=== PATIENT | male | born 1960 | race Caucasian/White ===

== ENCOUNTER 2018-02-03 18:10 | Inpatient (IN) | payer OTHER ==
[2018-02-03] MEDS ORDERED: ACETAMINOPHEN 325 MG TABLET PO ONE (18:36)
[2018-02-03] MEDS ORDERED: OXYCODONE-ACETAMINOPHEN 5-325 MG TABLET PO ONE (18:57)
--- NOTE | 2018-02-03 19:04 | ER Document Report ---
ED Fall - General Chief Complaint: Fall Injury Stated Complaint: FALL,INJURY Time Seen by Provider: 02/03/18 18:54 Notes: History of complain-57 years old male fell from a 6 foot ladder landed on his right heel and then on right elbow. Did not hit the head. Did not lose consciousness. Since then having pain over the middle of the arm elbow and wrist as well as pain and swelling over the right ankle and heel. Also having slight discomfort over lower lumbar region. Denies any headache denies any loss of consciousness denies any neck pain neck stiffness. Denies any chest pain shortness of breath. Denies any abdominal pain. Denies any pain over the left upper limb or lower limbs. As REVIEW OF SYSTEMS: CONSTITUTIONAL : Denies fever, chills, or sweats. Denies recent illness. EENT: Denies eye, ear, throat, or mouth pain or symptoms. Denies nasal or sinus congestion or discharge. Denies throat, tongue, or mouth swelling or difficulty swallowing. CARDIOVASCULAR: Denies chest pain. Denies palpitations or racing or irregular heart beat. Denies ankle edema. RESPIRATORY: Denies cough, cold, or chest congestion. Denies shortness of breath, difficulty breathing, or wheezing. GASTROINTESTINAL: Denies abdominal pain or distention. Denies nausea, vomiting , or diarrhea. Denies blood in vomitus, stools, or per rectum. Denies black, tarry stools. Denies constipation. GENITOURINARY: Denies difficulty urinating, painful urination, burning, frequency, blood in urine, or discharge. MUSCULOSKELETAL: About SKIN: Denies rash, lesions or sores. HEMATOLOGIC : Denies easy bruising or bleeding. LYMPHATIC: Denies swollen, enlarged glands. NEUROLOGICAL: Denies confusion or altered mental status. Denies passing out or loss of consciousness. Denies dizziness or lightheadedness. Denies headache. Denies weakness or paralysis or loss of use of either side. Denies problems with gait or speech. Denies sensory loss, numbness, or tingling. Denies seizures. PSYCHIATRIC: Denies anxiety or stress. Denies depression, suicidal ideation, or homicidal ideation. ALL OTHER SYSTEMS REVIEWED AND NEGATIVE. Dictation was performed using [employer] voice recognition software PHYSICAL EXAMINATION: GENERAL: Mild to moderate discomfort with pain HEAD: Atraumatic, normocephalic. EYES: Pupils equal round and reactive to light, extraocular movements intact, sclera anicteric, conjunctiva are normal. ENT: Nares patent, oropharynx clear without exudates. Moist mucous membranes. NECK: Normal range of motion, supple without lymphadenopathy LUNGS: Breath sounds clear to auscultation bilaterally and equal. No wheezes rales or rhonchi. HEART: Regular rate and rhythm without murmurs ABDOMEN: Soft, nontender, nondistended abdomen. No guarding, no rebound. No masses appreciated. Musculoskeletal: 1 right mid forearm has deformity swelling and tenderness. Right elbow has swelling could not do any flexion extension due to pain2.4 right wrist has slight swelling and tenderness but able to flex and extend..5. Fingers appears normal hand appears normal. Right ankle shows swelling and discomfort over the ankle-tenderness diffusely. Including calcaneum. Unable to do plantar flexion dorsiflexion inversion inversion due to pain. Examination of the thoracolumbar region-no obvious tenderness noted over the thoracolumbar spine. No paraspinal muscular tenderness noted. Examination of the chest wall-no tenderness was noted throughout the chest wall. - - NEUROLOGICAL: Cranial nerves grossly intact. Normal speech, normal gait. Normal sensory, motor exams PSYCH: Normal mood, normal affect. SKIN: Warm, Dry, normal turgor, no rashes or lesions noted. TRAVEL OUTSIDE OF THE [place] IN LAST 30 DAYS: No - Related data Allergies/Adverse Reactions: No Known Allergies Allergy (Unverified 02/03/18 18:38) Past Medical History - Social History Smoking Status: Former Smoker Chew tobacco use (# tins/day): No Frequency of alcohol use: Occasional Drug Abuse: None Family History: Reviewed & Not Pertinent Patient has suicidal ideation: No Patient has homicidal ideation: No - Past Medical History Cardiac Medical History: Reports: Hx Hypertension Renal/ Medical History: Denies: Hx Peritoneal Dialysis Review of Systems - Review of Systems Notes: As per history of complain Physical Exam - Vital signs Vitals: Temp Pulse Resp BP Pulse Ox 98 F 99 18 185/105 H 96 02/03/18 18:24 02/03/18 18:24 02/03/18 18:24 02/03/18 18:24 02/03/18 18:24 Course - Re-evaluation Re-evalutation: 02/03/18 22:52 Case was discussed with orthopedic surgeon currently being admitted to his service. X-rays and CTs reviewed - Vital Signs Vital signs: Temp Pulse Resp BP Pulse Ox 98 F 99 23 H 185/105 H 96 02/03/18 18:24 02/03/18 18:24 02/03/18 18:29 02/03/18 18:24 02/03/18 18:29 - Laboratory Result Diagrams: 02/03/18 18:22 02/03/18 18:22 Laboratory results interpreted by me: 02/03/18 02/03/18 18:22 18:22 MCH 34.1 H Sodium 145.3 H Chloride 109 H BUN 21 H Glucose 111 H - Diagnostic Test Radiology reviewed: Reports reviewed - X-rays and CTs reported by radiologist as reviewed. Indicated the right humeral fracture displaced, right ankle fracture with calcaneal fracture, L2 vertebral fracture. Critical Care Note - Critical Care Note Total time excluding time spent on procedures (mins): 60 Comments: Management of trauma with multiple injuries. Discussion with orthopedic surgeon Discharge - Discharge Clinical Impression: Right humeral fracture Qualifiers: Encounter type: initial encounter Humerus Location: proximal Fracture type: closed Fracture morphology: other fracture Fracture alignment: displaced Qualified Code(s): S42.291A - Other displaced fracture of upper end of right humerus, initial encounter for closed fracture Wrist fracture, right Qualifiers: Encounter type: initial encounter Fracture type: closed Qualified Code(s): S62.101A - Fracture of unspecified carpal bone, right wrist, initial encounter for closed fracture Ankle fracture, right Qualifiers: Encounter type: initial encounter Fracture type: closed Qualified Code(s): S82.891A - Other fracture of right lower leg, initial encounter for closed fracture Calcaneal fracture Qualifiers: Encounter type: initial encounter Calcaneus location: body Fracture type: closed Fracture alignment: displaced Laterality: right Qualified Code(s): S92.011A - Displaced fracture of body of right calcaneus, initial encounter for closed fracture L2 vertebral fracture Qualifiers: Encounter type: initial encounter Fracture type: closed Fracture morphology: wedge compression Qualified Code(s): S32.020A - Wedge compression fracture of second lumbar vertebra, initial encounter for closed fracture Fall Qualifiers: Encounter type: initial encounter Qualified Code(s): W19.XXXA - Unspecified fall, initial encounter Disposition: ADMITTED INPATIENT Unit Admitted: Surgical Floor
[2018-02-03 19:06] LABS: ABSOLUTE BASOPHILS # (AUTO) 0.1 10^3/uL (0.0-0.2); ABSOLUTE EOSINOPHILS # (AUTO) 0.2 10^3/uL (0.0-0.6); ABSOLUTE LYMPHOCYTES (AUTO) 1.9 10^3/uL (0.5-4.7); ABSOLUTE MONOCYTES (AUTO) 0.7 10^3/uL (0.1-1.4); ABSOLUTE NEUT (AUTO) 3.8 10^3/uL (1.7-8.2); EOSINOPHILS % (AUTO) 2.5 % (0-6); HEMATOCRIT 44.2 % (37.9-51.0); HEMOGLOBIN 15.8 g/dL (13.5-17.0); LYMPHOCYTES % (AUTO) 28.9 % (13-45); MEAN CORPUSCULAR HEMOGLOBIN 34.1 pg (27.0-33.4); MEAN CORPUSCULAR HGB CONC 35.7 g/dL (32.0-36.0); MEAN CORPUSCULAR VOLUME 95 fl (80-97); MONOCYTES % (AUTO) 10.1 % (3-13); PLATELET COUNT 237 10^3/uL (150-450); RED BLOOD COUNT 4.64 10^6/uL (4.35-5.55); RED CELL DISTRIBUTION WIDTH 12.6 % (11.5-14.0); SEGMENTED NEUTROPHILS % (AUTO) 57.5 % (42-78); TOTAL CELLS COUNTED % (AUTO) 100 %; WHITE BLOOD COUNT 6.6 10^3/uL (4.0-10.5)
[2018-02-03 19:10] LABS: ALANINE AMINOTRANSFERASE 55 U/L (21-72); ALBUMIN 4.7 g/dL (3.5-5.0); ALKALINE PHOSPHATASE 80 U/L (38-126); ANION GAP 11 (5-19); ASPARTATE AMINO TRANSFERASE 35 U/L (17-59); BILIRUBIN,DIRECT 0.4 mg/dL (0.0-0.4); BILIRUBIN,TOTAL 0.8 mg/dL (0.2-1.3); BLOOD UREA NITROGEN 21 mg/dL (7-20); CALCIUM 9.7 mg/dL (8.4-10.2); CARBON DIOXIDE 25 mmol/L (22-30); CHLORIDE 109 mmol/L (98-107); GLUCOSE 111 mg/dL (75-110); POTASSIUM 4.5 mmol/L (3.6-5.0); SODIUM 145.3 mmol/L (137-145); TOTAL PROTEIN 7.1 g/dL (6.3-8.2)
--- NOTE | 2018-02-03 20:18 | RADIOLOGY REPORT (SQ) ---
EXAM DESCRIPTION: CT CERVICAL SPINE WITHOUT COMPLETED DATE/TIME: 02/03/2018 8:08 pm REASON FOR STUDY: fall COMPARISON: None. TECHNIQUE: Axial images acquired through the cervical spine without intravenous contrast. Images re viewed with lung, soft tissue and bone windows. Reconstructed coronal and sagittal MPR images review ed. Images stored on PACS. All CT scanners at this facility use dose modulation, iterative reconstruction, and/or weight based d osing when appropriate to reduce radiation dose to as low as reasonably achievable (ALARA). [facility]: Dose Right [facility]: CareDose [facility]: Dose Right [facility]: Teradose 4D [facility]: [employer] RADIATION DOSE: CT Rad equipment meets quality standard of care and radiation dose reduction techniq ues were employed. CTDIvol: 22.1 mGy. DLP: 594 mGy-cm. mGy. LIMITATIONS: None. FINDINGS: ALIGNMENT: Anatomic. MINERALIZATION: Normal. VERTEBRAL BODIES: No fractures or dislocation. DISCS: Mild multilevel degenerative disc disease. FACETS, LATERAL MASSES, POSTERIOR ELEMENTS: No fractures. No dislocation. No acute findings. HARDWARE: None in the spine. VISUALIZED RIBS: No fractures. LUNG APICES AND SOFT TISSUES: Vascular calcifications. No additional significant findings. OTHER: No other significant finding. IMPRESSION: MILD DEGENERATIVE CHANGE OF THE CERVICAL SPINE WITHOUT FRACTURE. VASCULAR CALCIFICATIONS. TECHNICAL DOCUMENTATION: JOB ID: [id number] Quality ID # [id number]: Final reports with documentation of one or more dose reduction techniques (e.g., Au tomated exposure control, adjustment of the mA and/or kV according to patient size, use of iterative reconstruction technique) 2010 [employer]- All Rights Reserved Reading location - IP/workstation name: [email or web address]
--- NOTE | 2018-02-03 21:05 | RADIOLOGY REPORT (SQ) ---
EXAM DESCRIPTION: FOOT RIGHT COMPLETE; OS CALCIS/HEEL RIGHT; ANKLE RIGHT AP/LATERAL COMPLETED DATE/TIME: 02/03/2018 8:56 pm REASON FOR STUDY: fall; Injury ankle COMPARISON: None. NUMBER OF VIEWS: 8 views TECHNIQUE: Two views of the right ankle, three views of the right foot, and three views of the right calcaneus obtained. LIMITATIONS: None. FINDINGS: MINERALIZATION: Normal. BONES: There is a severely comminuted fracture involving the entirety of the calcaneus with extension into the subtalar joint space. No additional acute fracture identified. JOINTS: Tibiotalar joint effusion. SOFT TISSUES: Diffuse soft tissue swelling. OTHER: No other significant finding. IMPRESSION: SEVERELY COMMINUTED FRACTURE INVOLVING THE ENTIRETY OF THE CALCANEUS WITH EXTENSION INTO THE SUBTALAR JOINT SPACE. ORTHOPEDIC CONSULTATION RECOMMENDED. NO ADDITIONAL FRACTURE IDENTIFIED INVOLVING THE RIGHT OR RIGHT FOOT. TECHNICAL DOCUMENTATION: JOB ID: [id number] [employer]- All Rights Reserved Reading location - IP/workstation name: [email or web address]
--- NOTE | 2018-02-03 21:05 | RADIOLOGY REPORT (SQ) ---
EXAM DESCRIPTION: FOOT RIGHT COMPLETE; OS CALCIS/HEEL RIGHT; ANKLE RIGHT AP/LATERAL COMPLETED DATE/TIME: 02/03/2018 8:56 pm REASON FOR STUDY: fall; Injury ankle COMPARISON: None. NUMBER OF VIEWS: 8 views TECHNIQUE: Two views of the right ankle, three views of the right foot, and three views of the right calcaneus obtained. LIMITATIONS: None. FINDINGS: MINERALIZATION: Normal. BONES: There is a severely comminuted fracture involving the entirety of the calcaneus with extension into the subtalar joint space. No additional acute fracture identified. JOINTS: Tibiotalar joint effusion. SOFT TISSUES: Diffuse soft tissue swelling. OTHER: No other significant finding. IMPRESSION: SEVERELY COMMINUTED FRACTURE INVOLVING THE ENTIRETY OF THE CALCANEUS WITH EXTENSION INTO THE SUBTALAR JOINT SPACE. ORTHOPEDIC CONSULTATION RECOMMENDED. NO ADDITIONAL FRACTURE IDENTIFIED INVOLVING THE RIGHT OR RIGHT FOOT. TECHNICAL DOCUMENTATION: JOB ID: [id number] [employer]- All Rights Reserved Reading location - IP/workstation name: [email or web address]
--- NOTE | 2018-02-03 21:05 | RADIOLOGY REPORT (SQ) ---
EXAM DESCRIPTION: FOOT RIGHT COMPLETE; OS CALCIS/HEEL RIGHT; ANKLE RIGHT AP/LATERAL COMPLETED DATE/TIME: 02/03/2018 8:56 pm REASON FOR STUDY: fall; Injury ankle COMPARISON: None. NUMBER OF VIEWS: 8 views TECHNIQUE: Two views of the right ankle, three views of the right foot, and three views of the right calcaneus obtained. LIMITATIONS: None. FINDINGS: MINERALIZATION: Normal. BONES: There is a severely comminuted fracture involving the entirety of the calcaneus with extension into the subtalar joint space. No additional acute fracture identified. JOINTS: Tibiotalar joint effusion. SOFT TISSUES: Diffuse soft tissue swelling. OTHER: No other significant finding. IMPRESSION: SEVERELY COMMINUTED FRACTURE INVOLVING THE ENTIRETY OF THE CALCANEUS WITH EXTENSION INTO THE SUBTALAR JOINT SPACE. ORTHOPEDIC CONSULTATION RECOMMENDED. NO ADDITIONAL FRACTURE IDENTIFIED INVOLVING THE RIGHT OR RIGHT FOOT. TECHNICAL DOCUMENTATION: JOB ID: [id number] [employer]- All Rights Reserved Reading location - IP/workstation name: [email or web address]
--- NOTE | 2018-02-03 21:06 | RADIOLOGY REPORT (SQ) ---
EXAM DESCRIPTION: HUMERUS RIGHT COMPLETED DATE/TIME: 02/03/2018 8:56 pm REASON FOR STUDY: fall COMPARISON: None. NUMBER OF VIEWS: Two views. TECHNIQUE: Two radiographic images were acquired of the right humerus to include elbow and shoulder in at least one projection. LIMITATIONS: None. FINDINGS: MINERALIZATION: Normal. BONES: Moderately displaced and angulated fracture involving the mid to distal humeral diaphysis. SOFT TISSUES: Soft tissue swelling. OTHER: No other significant finding. IMPRESSION: HUMERUS FRACTURE ABOVE. TECHNICAL DOCUMENTATION: JOB ID: [id number] [employer]- All Rights Reserved Reading location - IP/workstation name: [email or web address]
--- NOTE | 2018-02-03 21:09 | RADIOLOGY REPORT (SQ) ---
EXAM DESCRIPTION: L SPINE WHOLE COMPLETED DATE/TIME: 02/03/2018 8:56 pm REASON FOR STUDY: Injury COMPARISON: None. NUMBER OF VIEWS: Five views including obliques. TECHNIQUE: AP, lateral, oblique, and sacral radiographic images acquired of the lumbar spine. LIMITATIONS: None. FINDINGS: MINERALIZATION: Normal. SEGMENTATION: Normal. No transitional anatomy. ALIGNMENT: Normal. VERTEBRAE: There appears to be a minimally displaced fracture through the anterior superior endplate of the L2 vertebral body. No additional vertebral body fracture identified. DISCS: Mild multilevel degenerative disc disease. POSTERIOR ELEMENTS: Pedicles and facets are intact. No pars defect or posterior arch defects. HARDWARE: None in the spine. PARASPINAL SOFT TISSUES: Vascular calcifications. PELVIS: Intact as visualized. No fractures or worrisome bone lesions. SI joints intact. OTHER: No other significant finding. IMPRESSION: MILDLY DISPLACED FRACTURE ANTERIOR SUPERIOR ENDPLATE L2 VERTEBRAL BODY. ADDITIONAL CHRONIC CHANGES ABOVE. TECHNICAL DOCUMENTATION: JOB ID: [id number] [employer]- All Rights Reserved Reading location - IP/workstation name: [email or web address]
--- NOTE | 2018-02-03 21:10 | RADIOLOGY REPORT (SQ) ---
EXAM DESCRIPTION: WRIST RIGHT 3 VIEWS COMPLETED DATE/TIME: 02/03/2018 8:56 pm REASON FOR STUDY: Injury to wrist and elbow COMPARISON: None. NUMBER OF VIEWS: Three views. TECHNIQUE: AP, lateral, and oblique radiographic images acquired of the right wrist. LIMITATIONS: None. FINDINGS: MINERALIZATION: Normal. BONES: Severely comminuted fracture through the distal radial metaphysis with extension to the articu lar surface where there is mild step-off. Bones otherwise appear to be intact. SOFT TISSUES: Soft tissue swelling. OTHER: No other significant finding. IMPRESSION: INTRA-ARTICULAR FRACTURE DISTAL RADIUS ABOVE. TECHNICAL DOCUMENTATION: JOB ID: [id number] [employer]- All Rights Reserved Reading location - IP/workstation name: [email or web address]
[2018-02-03] MEDS ORDERED: FENTANYL CITRATE INJ/PF 100 MCG/2 ML AMPUL IV ONE (22:23)
[2018-02-03] MEDS ORDERED: ONDANSETRON HCL INJ/PF 4 MG/2 ML SDV IV ONE (22:23)
[2018-02-03] MEDS ORDERED: NORMAL SALINE 1000 ML 1,000 ML IV ONE (22:25)
[2018-02-03] MEDS ORDERED: ONDANSETRON HCL INJ/PF 4 MG/2 ML SDV IV PRN (22:26)
[2018-02-03] MEDS ORDERED: CEFAZOLIN 2 GM/D5W RTU 2 GM/50 ML RTUPB IV ONE (22:45)
--- NOTE | 2018-02-03 23:53 | RADIOLOGY REPORT (SQ) ---
EXAM DESCRIPTION: CT LUMBAR SPINE WITHOUT CLINICAL HISTORY: 57 years Male, Lumbar fracture COMPARISON: CR, same day. TECHNIQUE: No contrast. Coronal and sagittal reformat. This exam was performed according to our departmental dose-optimization program, which includes automated exposure control, adjustment of the mA and/or kV according to patient size and/or use of iterative reconstruction technique. FINDINGS: Mild L2 anterior vertebral compression deformity and 4.0 x 1.1 cm corner fracture with less than 2 mm distraction of the anterosuperior L2 vertebral body with no evidence of healing. Mild spondylosis. Normal alignment and moderate straightening of the lumbar spine. Minimal bilateral perinephric fat stranding. Atherosclerosis. Mild retroperitoneal lymphadenopathy includes a left periiliac 1.6 x 1.1 cm lymph node, image 78 of series 4. IMPRESSION: 1. Mild L2 anterior vertebral fracture. 2. Mild retroperitoneal lymphadenopathy.
[2018-02-04] MEDS: FENTANYL CITRATE INJ/PF 100 MCG/2 ML AMPUL IV PRN ×4 (00:12→23:16)
--- NOTE | 2018-02-04 00:12 | RADIOLOGY REPORT (SQ) ---
EXAM DESCRIPTION: CT RT UPPER EXTREMITY WITHOUT CLINICAL HISTORY: 57 years Male, CT of the ankle/calcaneum/wrist COMPARISON: CR, same day, report only. TECHNIQUE: No contrast. Coronal and sagittal reformat. This exam was performed according to our departmental dose-optimization program, which includes automated exposure control, adjustment of the mA and/or kV according to patient size and/or use of iterative reconstruction technique. Limitation: Position, low resolution, motion FINDINGS: Comminuted intra-articular fracture of the distal right radius with mild impaction, 0.4 cm volar distraction, no evidence of healing, and unremarkable associated soft tissues. IMPRESSION: Comminuted intra-articular fracture of the distal right radius. Limitation.
--- NOTE | 2018-02-04 00:16 | RADIOLOGY REPORT (SQ) ---
EXAM DESCRIPTION: CT RT LOWER EXTREMITY WITHOUT CLINICAL HISTORY: 57 years Male, CT of the ankle/calcaneum COMPARISON: CR, same day, report only. TECHNIQUE: No contrast. Coronal and sagittal reformat. This exam was performed according to our departmental dose-optimization program, which includes automated exposure control, adjustment of the mA and/or kV according to patient size and/or use of iterative reconstruction technique. Limitation: Moderate motion artifact. FINDINGS: Extensive comminuted intra-articular shattered fracture appearance of the calcaneus with up to 0.7 cm distraction and no evidence of healing. Subchondral degenerative cyst or chronic erosion of the navicular bone at the dorsal talonavicular joint. Mild edema. Mild osteoarthritis of the midfoot. IMPRESSION: Extensively comminuted right calcaneal fracture.
[2018-02-04] MEDS: OXYCODONE-ACETAMINOPHEN 5-325 MG TABLET PO PRN ×3 (02:29→14:50)
[2018-02-04] MEDS ORDERED: CEFAZOLIN 2 GM/D5W RTU 2 GM/50 ML RTUPB IV ONE (02:30)
[2018-02-04] MEDS: RINGERS SOLUTION,LACTATED 1,000 ML IV PRN (02:38)
--- NOTE | 2018-02-04 02:46 | PDOC H&P ---
History of Present Illness Admission Date/PCP: 02/03/18 22:35 KIMBERLY ESCUDERO MD Patient complains of: Fall History of Present Illness: CORY JOE is a 57 year old male who was on a ladder earlier today when he fell 9 feet onto his right side. Patient was unable to weight-bear or ambulate and had significant pain along with deformity of his right arm. Patient was brought to the emergency room where x-rays demonstrated multiple fractures of his right side and a lumbar fracture. Patient denies any head trauma. Denies headache, dizziness or loss of consciousness. Pain 5/5 which has improved with fentanyl. Does have some tingling in the toes denies numbness of the upper extremity. Pain worse with motion of the arm and leg. Past Medical History Cardiac Medical History: Reports: Hypertension Social History Smoking Status: Former Smoker Last Time Smoked: 11/07/1999 Frequency of Alcohol Use: Social Hx Recreational Drug Use: No Hx Prescription Drug Abuse: No Family History Family History: Reviewed & Not Pertinent Parental Family History Reviewed: No Children Family History Reviewed: No Sibling(s) Family History Reviewed.: No Medication/Allergy Allergies/Adverse Reactions: No Known Allergies Allergy (Unverified 02/03/18 18:38) Review of Systems Constitutional: ABSENT: chills, fever(s), headache(s), weight gain, weight loss Eyes: ABSENT: visual disturbances Ears: ABSENT: hearing changes Cardiovascular: ABSENT: chest pain, dyspnea on exertion, edema, orthropnea, palpitations Respiratory: ABSENT: cough, hemoptysis Gastrointestinal: ABSENT: abdominal pain, constipation, diarrhea, hematemesis, hematochezia, nausea, vomiting Genitourinary: ABSENT: dysuria, hematuria Integumentary: ABSENT: rash, wounds Neurological: ABSENT: abnormal gait, abnormal speech, confusion, dizziness, focal weakness, syncope Psychiatric: ABSENT: anxiety, depression, homidical ideation, suicidal ideation Endocrine: ABSENT: cold intolerance, heat intolerance, menstrual abnormalities, polydipsia, polyuria Hematologic/Lymphatic: ABSENT: easy bleeding, easy bruising, lymphadenopathy Physical Exam Vital Signs: Temp Pulse Resp BP Pulse Ox 98 F 99 15 139/79 H 97 02/03/18 18:24 02/03/18 18:24 02/04/18 00:01 02/04/18 00:01 02/04/18 00:01 General appearance: PRESENT: no acute distress, well-developed, well-nourished Head exam: PRESENT: atraumatic, normocephalic Eye exam: PRESENT: conjunctiva pink, EOMI, PERRLA. ABSENT: scleral icterus Ear exam: PRESENT: normal external ear exam Mouth exam: PRESENT: moist, tongue midline Neck exam: PRESENT: full ROM. ABSENT: carotid bruit, JVD, lymphadenopathy, thyromegaly Cardiovascular exam: PRESENT: RRR. ABSENT: diastolic murmur, rubs, systolic murmur Pulses: PRESENT: normal dorsalis pedis pul, +2 pedal pulses bilateral Vascular exam: PRESENT: normal capillary refill GI/Abdominal exam: PRESENT: normal bowel sounds, soft. ABSENT: distended, guarding, mass, organolmegaly, rebound, tenderness Rectal exam: PRESENT: deferred Musculoskeletal exam: PRESENT: other - Right upper extremity: Splint intact. Cap refill less than 2 seconds. Intact sensation to light touch throughout median and ulnar nerve distribution. Anesthesia is along the superficial radial nerve distribution. EPL/FPL intact. Intact flexion-extension of the IP and MP joints. Compartments soft and compressible no sign of compartment syndrome. No pain with passive stretch. Right lower extremity: Splint intact. Intact flexion/extension of the toes. Cap refill less than 2 seconds. Right lower extremity: Splint intact. Intact flexion/extension of the toes. Cap refill less than 2 seconds. No pain with passive stretch. Dyskinesias along the distal tips. Compartments soft and compressible no sign of compartment syndrome. Lumbosacral spine: Tenderness upon palpation on the L2 level. No tenderness proximal or distal. Left lower extremity intact sensation to light touch. Dorsiflexion/plantarflexion 5/5. EHL 5/5. Intact straight leg raise. Neurological exam: PRESENT: alert, awake, oriented to person, oriented to place , oriented to time, oriented to situation, CN II-XII grossly intact. ABSENT: motor sensory deficit Psychiatric exam: PRESENT: appropriate affect, normal mood. ABSENT: homicidal ideation, suicidal ideation Skin exam: PRESENT: dry, intact, warm. ABSENT: cyanosis, rash Results Impressions: Cervical Spine CT 02/03/18 00:00 IMPRESSION: MILD DEGENERATIVE CHANGE OF THE CERVICAL SPINE WITHOUT FRACTURE. VASCULAR CALCIFICATIONS. Os Calcis X-ray 02/03/18 00:00 IMPRESSION: SEVERELY COMMINUTED FRACTURE INVOLVING THE ENTIRETY OF THE CALCANEUS WITH EXTENSION INTO THE SUBTALAR JOINT SPACE. ORTHOPEDIC CONSULTATION RECOMMENDED. NO ADDITIONAL FRACTURE IDENTIFIED INVOLVING THE RIGHT OR RIGHT FOOT. Foot X-Ray 02/03/18 18:34 IMPRESSION: SEVERELY COMMINUTED FRACTURE INVOLVING THE ENTIRETY OF THE CALCANEUS WITH EXTENSION INTO THE SUBTALAR JOINT SPACE. ORTHOPEDIC CONSULTATION RECOMMENDED. NO ADDITIONAL FRACTURE IDENTIFIED INVOLVING THE RIGHT OR RIGHT FOOT. Humerus X-Ray 02/03/18 18:34 IMPRESSION: HUMERUS FRACTURE ABOVE. Ankle X-Ray 02/03/18 18:55 IMPRESSION: SEVERELY COMMINUTED FRACTURE INVOLVING THE ENTIRETY OF THE CALCANEUS WITH EXTENSION INTO THE SUBTALAR JOINT SPACE. ORTHOPEDIC CONSULTATION RECOMMENDED. NO ADDITIONAL FRACTURE IDENTIFIED INVOLVING THE RIGHT OR RIGHT FOOT. Lumbar Spine X-Ray 02/03/18 18:55 IMPRESSION: MILDLY DISPLACED FRACTURE ANTERIOR SUPERIOR ENDPLATE L2 VERTEBRAL BODY. ADDITIONAL CHRONIC CHANGES ABOVE. Wrist X-Ray 02/03/18 18:58 IMPRESSION: INTRA-ARTICULAR FRACTURE DISTAL RADIUS ABOVE. Lumbar Spine CT 02/03/18 22:25 IMPRESSION: 1. Mild L2 anterior vertebral fracture. 2. Mild retroperitoneal lymphadenopathy. Lower Extremity CT 02/03/18 22:26 IMPRESSION: Extensively comminuted right calcaneal fracture. Upper Extremity CT 02/03/18 22:26 IMPRESSION: Comminuted intra-articular fracture of the distal right radius. Limitation. Status: Image reviewed by me - I have reviewed patient's radiographs and CT scan. Radiographs and CT scan of the right wrist demonstrate comminuted intra- articular distal radius fracture with volar subluxation of the carpus. No associated fracture appreciated however limited exam. Radiographs and CT scan of the lumbar spine demonstrate small anterior compression fracture along L2 no evidence of subluxation or malalignment appreciated. Maintained disc height. Radiographs and CT scan of the calcaneus demonstrate comminuted intra-articular calcaneus fracture with loss of height. Radiographs of the right humerus demonstrate oblique fracture of the midshaft humerus with 40 of angulation. Assessment & Plan - Diagnosis (1) Griffith's fracture of distal radius, closed Qualifiers: Encounter type: initial encounter Laterality: right Qualified Code(s): S52.561A - Griffith's fracture of right radius, initial encounter for closed fracture Is this a current diagnosis for this admission?: Yes (2) Calcaneal fracture Qualifiers: Encounter type: initial encounter Calcaneus location: body Fracture type : closed Fracture alignment: displaced Laterality: right Qualified Code(s) : S92.011A - Displaced fracture of body of right calcaneus, initial encounter for closed fracture (3) Right humeral fracture Qualifiers: Encounter type: initial encounter Humerus Location: proximal Fracture type: closed Fracture morphology: other fracture Fracture alignment: displaced Qualified Code(s): S42.291A - Other displaced fracture of upper end of right humerus, initial encounter for closed fracture Is this a current diagnosis for this admission?: Yes Plan: Patient sustained multiple injuries there is no evidence of additional trauma outside patient's fractures. Patient's L2 compression fracture given its minimal displacement I do not feel operative intervention is required. Given the ipsilateral nature of the right distal radius fracture and humeral shaft fracture I have recommended operative intervention which includes open reduction internal fixation distal radius, humeral shaft. Risks and benefits of the surgical procedure have been explained to the patient specific risks including neurovascular injury especially given the location of the patient's fracture he is at high risk for possible radial nerve injury or neurapraxia postoperatively. As for the patient's distal radius fracture there is considerable intra-articular comminution postoperative rehabilitation expectations have been explained also risks such as neurovascular risk, postoperative pain, posttraumatic arthritis, infection hardware complication after discussing risks and benefits of both the humeral ORIF and distal radius ORIF patient has verbalized understanding consented for the procedure. Lastly for the patient's calcaneus fracture he was placed in a splint and will continue aggressive elevation. Will discuss with my colleagues about the possibility of operative intervention in the future. Plan will be to proceed with operative intervention of the humerus and wrist on 02/04/18.
[2018-02-04] MEDS ORDERED: CEFAZOLIN 2 GM/D5W RTU 2 GM/50 ML RTUPB IV PRN ×2 (05:40→07:48)
[2018-02-04] MEDS ORDERED: FENTANYL CITRATE INJ/PF 100 MCG/2 ML AMPUL IV ONE (07:00)
[2018-02-04] MEDS: AMLODIPINE BESYLATE 5 MG TABLET PO SCH ×2 (08:50→20:14)
[2018-02-04] MEDS: LISINOPRIL 10 MG TABLET PO SCH ×2 (08:51→20:13)
[2018-02-04] MEDS ORDERED: FENTANYL CITRATE INJ/PF 100 MCG/2 ML AMPUL ONE ×3 (08:56→15:08)
[2018-02-04] MEDS ORDERED: MIDAZOLAM 2 MG/2 ML INJ ONE (08:56)
[2018-02-04] MEDS ORDERED: ACETAMINOPHEN 100 ML IV ONE ×2 (08:57→20:35)
[2018-02-04] MEDS ORDERED: PROPOFOL INJ 200 MG/20 ML VIAL IV ONE (08:57)
[2018-02-04] MEDS ORDERED: CEFAZOLIN 2 GM/D5W RTU 2 GM/50 ML RTUPB IV SCH (09:00)
--- NOTE | 2018-02-04 10:19 | EKG REPORT ---
SEVERITY:- ABNORMAL ECG - SINUS TACHYCARDIA ATRIAL PREMATURE COMPLEX ABNORMAL T, CONSIDER ISCHEMIA ,TITI- LATERAL LEADS : Confirmed by: Maxx Bower MD 04-Feb-2018 10:18:46
[2018-02-04] MEDS: DOCUSATE SODIUM 100 MG CAPSULE PO SCH (11:27)
[2018-02-04] MEDS ORDERED: BUPIVACAINE HCL 0.5 % INJ/PF 30 ML SDV ONE (12:06)
[2018-02-04] MEDS ORDERED: PROMETHAZINE HCL INJ 25 MG/1 ML VIAL IV PRN (13:14)
[2018-02-04] MEDS ORDERED: DIPHENHYDRAMINE HCL 50 MG/ML VIAL IV PRN ×2 (13:14→14:35)
[2018-02-04] MEDS ORDERED: FENTANYL CITRATE INJ/PF 100 MCG/2 ML AMPUL IV PRN ×3 (13:14)
[2018-02-04] MEDS ORDERED: CEFAZOLIN INJ 1 GM VIAL ONE (14:17)
--- NOTE | 2018-02-04 14:34 | Operative Report ---
Operative Report PREOPERATIVE DIAGNOSIS: Right humeral shaft fracture. Right greater than 3 part intra-articular distal radius fracture POSTOPERATIVE DIAGNOSIS: Same OPERATION: 1. Open reduction internal fixation humeral shaft with radial nerve neurolysis. 2. Open reduction internal fixation greater than 3 part intra- articular distal radius fracture SURGEON: JUNIOR SCHILLING 1ST MUSEUM GUIDE: DEIDRA PEREZ - Required for fracture reduction, retractor placement and closure ANESTHESIA: GA COMPLICATIONS: None ESTIMATED BLOOD LOSS: 300cc PROCEDURE: Indication for above procedure: 57-year-old male who sustained a fall from a 9 foot ladder onto his right side resulting in multiple fractures including L2 compression fracture, right distal radius humeral shaft fracture, and right calcaneus fracture. Patient was seen in the emergency room his cervical spine was cleared. Patient was not found to have any associated injuries outside the above. Risks and benefits of the surgical procedure were explained to the patient, patient verbalized understanding consented for the procedure. Procedure In Detail: Patient was seen and evaluated in the preoperative holding area. The RIGHT upper extremity was initialized and marked. Patient received 2g of Ancef IV for bacterial prophylaxis. Patient was taken back to the operative room where transferred to the operative table and placed under general anesthesia. Once they were adequately anesthetized patient was placed in lateral decubitus position nonoperative left upper extremity and bilateral lower extremities were carefully padded.. A surgical team debriefing was performed ensuring all instrumentation was available, the surgical procedure was discussed with possible concerns reviewed. The upper extremity was prepped with chloroprep and draped in a sterile fashion. A timeout was done identifying correct patient, procedure and extremity everyone in attendance agree with this and verbalized no concerns. Longitudinal skin incision was made on the posterior humerus. Blunt dissection was performed. Skin flaps were established laterally and medially. The posterior cutaneous branch of the radial nerve was then identified and tracked proximally to identify the entry point of the radial nerve at the lateral intermuscular septum, this area was marked. The triceps fascia was then split in line with the skin incision. Dissection was performed between the lateral and long head of the triceps retracted laterally and medially respectively. Blunt dissection was performed and the radial nerve was identified at the level of the fracture site and within the fracture site. Under direct visualization there was contusion of the radial nerve but no evidence of discontinuity. A vessel loop was placed around the radial nerve and neurolysis was performed proximally and distally to allow successful placement of the plate without disruption of the radial nerve. A portion of the medial triceps had was released proximally and distally supraperiosteal dissection was performed proximal and distal to the fracture. At the fracture a periosteal elevator was used to isolate the fracture. Any intervening hematoma was then copiously irrigated with normal saline. Throughout the procedure any peripheral bleeding was controlled with electrocautery. Under direct visualization the fracture was anatomically reduced and held with a reduction clamp. C-arm fluoroscopy was obtained confirming adequate reduction. To obtain fracture compression 2 interfragmentary 3.5 millimeter screws were placed perpendicular to the fracture. Optimal interfragmentary compression was achieved. A Shahid 8 hole 4.5 mm compression plate was then secured proximally and distally in C arm fluoroscopy obtained confirming appropriate placement of the plate. A slight bend was placed into the plate. The plate was secured proximally and distally with bicortical fixation I then completed fixation proximally distally with 6 cortices respectively. There is no evidence of fracture instability under direct visualization or fluoroscopy. Final fluoroscopy images were obtained confirming adequate screw length, plate placement and fracture reduction. The wound was copiously irrigated with normal saline. The triceps split was closed with a 0 Vicryl suture. A portion of the triceps fascia was closed with interrupted 0 Vicryl suture. Subcutaneous tissues were closed with 3-0 Monocryl suture. Skin was closed with joanne. 20 cc of 0.5% Marcaine without epinephrine was injected for postoperative pain control. Wound was then dressed with Acticoat and OpSite. Attention then turned to distal radius fixation. Patient was placed in the supine position. His right lower extremity elevated. Left upper extremity carefully padded. The right upper extremity was then prepped with ChloraPrep and draped in a sterile fashion. A sterile forearm tourniquet was placed. A second timeout was done confirming extremity and procedure. Extremity was then exsanguinated and tourniquet inflated to 200 mmHg. A longitudinal skin incision was made along the for approach of [place]. The FCR was identified and the sheath was opened. This was carefully retracted ulnarly along with the FPL. The radial artery was then protected radially. The pronator quadratus was identified and sharply elevated off the distal radius. Utilizing a [place] elevator the fracture was elevated and reduced. A [place] standard plate was then pinned into position. AP and lateral fluoroscopy was then used to ensure appropriate placement of the plate centered on the radius and at the appropriate height on the lateral view providing buttress to the volar ulnar corner and Griffith's fragment. Once this was confirmed I proceeded with fixation proximally. Bicortical fixation was obtained proximally thus buttressing of the volar Griffith's segment. AP and lateral fluoroscopy was then done confirming adequate reduction of the distal radius. Without residual step- off of the articular surface Once this was confirmed a second cortical screw was placed proximally further buttressing the fracture fragment. I then turned my attention to fixation distally. With the use of a reduction clamp the sagittal split was held into position and a K wire placed through the plate to provide fixation. Locking screws were placed along the volar aspect of the plate. C-arm fluoroscopy was obtained confirming maintained articular reduction with no evidence of intra-articular screw penetration of the ulnar screws. While maintaining reduction of the comminuted radial styloid fragment variable angle screws were drilled under live fluoroscopy to obtain maximal fixation of the radial styloid. Additional cortex screw was placed proximally along with a locking screw. Final radiographs demonstrated no evidence of intra-articular screw penetration on 0 and 22 lateral. There was no evidence of crepitus with radiocarpal range of motion or DRUJ manipulation. No DRUJ instability and negative Cortez's maneuver. Fluoroscopy demonstrated pentecostal of radial height, inclination and volar tilt without evidence of carpal subluxation. I then copious irrigated with normal saline. Injected 10 mL of 0 0.5% Marcaine without epinephrine for postoperative pain control. The pronator quadratus was closed with interrupted 3-0 Vicryl suture. Subcutaneous tissues were closed with interrupted 3-0 Vicryl suture and skin was closed with interrupted 3-0 nylon suture. Patient was placed in a posterior splint that extended to the volar aspect of the distal radius. The tourniquet was then deflated, patient had good peripheral perfusion. Patient was awoken from anesthesia extubated and transferred to the operating room stretcher. The was no intraoperative complications patient tolerated procedure well stable to PACU. Postoperative plan: At patient's followup splint will be removed at followup we will check x-rays and begin range of motion of the wrist. Patient will be seen by Occupational Therapy and fit for a customized thermoplastic splint of his distal radius fracture. Patient will be admitted and started on anticoagulation for DVT prophylaxis given his multiple extremity injuries.
[2018-02-04] MEDS ORDERED: ONDANSETRON 4 MG TAB.RAPDIS PO PRN (14:35)
[2018-02-04] MEDS ORDERED: OXYCODONE-ACETAMINOPHEN 5-325 MG TABLET ONE (14:48)
[2018-02-04] MEDS ORDERED: LIDOCAINE 2% INJ-PF (20 MG/ML) 2 ML AMPUL ONE (15:08)
[2018-02-04] MEDS ORDERED: KETOROLAC TROMETHAMINE INJ/PF 30 MG/1 ML SDV ONE (15:08)
[2018-02-04] MEDS ORDERED: SUCCINYLCHOLINE CHLORIDE INJ 200 MG/10 ML VIAL ONE (15:08)
[2018-02-04] MEDS: RIVAROXABAN 10 MG TABLET PO SCH (16:21)
--- NOTE | 2018-02-04 16:38 | RADIOLOGY REPORT (SQ) ---
EXAM DESCRIPTION: HUMERUS RIGHT COMPLETED DATE/TIME: 02/04/2018 3:34 pm REASON FOR STUDY: ORIF COMPARISON: None. NUMBER OF VIEWS: Two views. TECHNIQUE: Two radiographic images were acquired of the right humerus to include elbow and shoulder in at least one projection. LIMITATIONS: None. FINDINGS: Acute fracture of between the middle and distal 3rd of the right humerus. Overlap of prox imal and distal fracture fragments. Slight angulation convex posterolaterally. Degenerative changes right AC joint. IMPRESSION: Comminuted fracture between middle and distal 3rd of right humerus. TECHNICAL DOCUMENTATION: JOB ID: [id number] [id number] 2010 [employer]- All Rights Reserved Reading location - IP/workstation name: [email or web address]
--- NOTE | 2018-02-04 16:44 | RADIOLOGY REPORT (SQ) ---
EXAM DESCRIPTION: WRIST RIGHT 2 VIEWS COMPLETED DATE/TIME: 02/04/2018 3:34 pm REASON FOR STUDY: ORIF COMPARISON: Right wrist 02/03/2018. NUMBER OF VIEWS: 14 views. TECHNIQUE: 14 intraoperative images obtained. LIMITATIONS: None. FINDINGS: Serial intraoperative views demonstrate internal fixation of a comminuted distal right rad ial metaphyseal fracture and radius styloid fracture extending into the radiocarpal joint. There is a compression plate transfixed by multiple screws along the volar aspect of the distal right radius. Near anatomical alignment at the site of comminuted fracture. IMPRESSION: Status post internal fixation of comminuted distal right radial and radius styloid fract ure. TECHNICAL DOCUMENTATION: JOB ID: [id number] SC-[id number] 2010 [employer]- All Rights Reserved Reading location - IP/workstation name: [email or web address]
[2018-02-04] MEDS: PREGABALIN 75 MG CAPSULE PO SCH (17:24)
[2018-02-04] MEDS: MORPHINE SULFATE 10 MG/ML INJ IV PRN ×2 (17:25→19:58)
[2018-02-04] MEDS: OXYCODONE HCL SR 10 MG TABLET PO SCH (21:32)
[2018-02-05] MEDS: RINGERS SOLUTION,LACTATED 1,000 ML IV PRN (02:08)
[2018-02-05] MEDS: MORPHINE SULFATE 10 MG/ML INJ IV PRN ×9 (02:08→23:19)
[2018-02-05] MEDS: FENTANYL CITRATE INJ/PF 100 MCG/2 ML AMPUL IV PRN (04:44)
[2018-02-05] MEDS: LANSOPRAZOLE 30 MG TAB.RAP.DR PO SCH (05:26)
[2018-02-05 07:57] LABS: HEMATOCRIT 34.8 % (37.9-51.0); MEAN CORPUSCULAR HEMOGLOBIN 33.9 pg (27.0-33.4); MEAN CORPUSCULAR HGB CONC 35.5 g/dL (32.0-36.0); MEAN CORPUSCULAR VOLUME 96 fl (80-97); PLATELET COUNT 172 10^3/uL (150-450); RED BLOOD COUNT 3.64 10^6/uL (4.35-5.55); RED CELL DISTRIBUTION WIDTH 12.1 % (11.5-14.0)
[2018-02-05] MEDS: AMLODIPINE BESYLATE 5 MG TABLET PO SCH ×2 (08:17→20:39)
[2018-02-05] MEDS: ACETAMINOPHEN 325 MG TABLET PO PRN ×3 (08:17→17:46)
[2018-02-05] MEDS: LISINOPRIL 10 MG TABLET PO SCH ×2 (08:17→20:40)
[2018-02-05 08:19] LABS: HEMOGLOBIN 12.3 g/dL (13.5-17.0)
[2018-02-05 08:20] LABS: ANION GAP 8 (5-19); BLOOD UREA NITROGEN 16 mg/dL (7-20); CALCIUM 8.7 mg/dL (8.4-10.2); CARBON DIOXIDE 28 mmol/L (22-30); CHLORIDE 101 mmol/L (98-107); GLUCOSE 125 mg/dL (75-110); POTASSIUM 4.2 mmol/L (3.6-5.0); SODIUM 136.6 mmol/L (137-145)
[2018-02-05] MEDS: OXYCODONE HCL SR 10 MG TABLET PO SCH ×2 (09:49→22:27)
[2018-02-05] MEDS: DOCUSATE SODIUM 100 MG CAPSULE PO SCH (09:50)
[2018-02-05] MEDS: PREGABALIN 75 MG CAPSULE PO SCH ×2 (09:50→17:24)
--- NOTE | 2018-02-05 10:47 | PDOC PROGRESS REPORT ---
Subjective Progress Note for:: 02/05/18 Subjective:: 57-year-old white male 1 day status post open reduction internal fixation right proximal humeral shaft as well as left distal radius. Patient reports he is comfortable presently however has had difficulty with pain control. He notes the "fentanyl is not touching my pain". Patient was reassured that fentanyl has been discontinued and as needed morphine has been ordered. He voiced understanding and is grateful. Patient is also concerned that he has limited range of motion of his fingers of the right hand. Patient was informed this was likely the result of a radial nerve palsy as result of his injury. Reason For Visit: RIGHT DISTAL RADIUS FRACTURE, RIGHT HUMERAL SHAFT Physical Exam Vital Signs: Temp Pulse Resp BP Pulse Ox 38.5 C H 106 H 16 167/85 H 94 02/05/18 07:36 02/05/18 07:36 02/05/18 07:36 02/05/18 07:36 02/05/18 07:36 Intake & Output 02/04/18 02/05/18 02/06/18 06:59 06:59 06:59 Intake Total 0 2540 Output Total 0 2100 Balance 0 440 General appearance: PRESENT: no acute distress, well-developed, well-nourished Head exam: PRESENT: atraumatic, normocephalic Eye exam: PRESENT: EOMI Mouth exam: PRESENT: moist Respiratory exam: PRESENT: unlabored Pulses: PRESENT: normal dorsalis pedis pul, +2 pedal pulses bilateral Vascular exam: PRESENT: normal capillary refill Extremities exam: PRESENT: tenderness Additional comments: Patient sitting upright in hospital bed with right lower extremity elevated on multiple pillows as well as right upper extremity. Right lower extremity in posterior splint and compression dressing. His postoperative splint placed on right upper extremity and compression dressing are clean dry and intact. These are left in place. He is slightly tender to palpation through the cast and with any initiation of motion. His sensory function of median ulnar and radial nerves are intact however he has moderate motor deficit along distribution of radial nerve. He has full flexion/extension of the thumb. +2 radial pulses and less than 2 seconds capillary refill to fingers of right upper extremity. Additional comments: Patient remains nonambulatory due to the nature of calcaneal fracture of right lower extremity. He will likely benefit from gentle range of motion of the right upper extremity and Occupational Therapy services. Neurological exam: PRESENT: alert, awake, oriented to person, oriented to place , oriented to time, oriented to situation, CN II-XII grossly intact. ABSENT: motor sensory deficit Psychiatric exam: PRESENT: appropriate affect, normal mood. ABSENT: homicidal ideation, suicidal ideation Skin exam: PRESENT: dry, intact, warm. ABSENT: cyanosis, rash Results Laboratory Results: 02/05/18 06:25 02/05/18 06:25 02/05/18 02/05/18 06:25 06:25 WBC 8.0 RBC 3.64 L Hgb 12.3 L D Hct 34.8 L MCV 96 MCH 33.9 H MCHC 35.5 RDW 12.1 Plt Count 172 Sodium 136.6 L Potassium 4.2 Chloride 101 Carbon Dioxide 28 Anion Gap 8 BUN 16 Creatinine 0.94 Est GFR ( Amer) > 60 Est GFR (Non-Af Amer) > 60 Glucose 125 H Calcium 8.7 Impressions: Cervical Spine CT 02/03/18 00:00 IMPRESSION: MILD DEGENERATIVE CHANGE OF THE CERVICAL SPINE WITHOUT FRACTURE. VASCULAR CALCIFICATIONS. Os Calcis X-ray 02/03/18 00:00 IMPRESSION: SEVERELY COMMINUTED FRACTURE INVOLVING THE ENTIRETY OF THE CALCANEUS WITH EXTENSION INTO THE SUBTALAR JOINT SPACE. ORTHOPEDIC CONSULTATION RECOMMENDED. NO ADDITIONAL FRACTURE IDENTIFIED INVOLVING THE RIGHT OR RIGHT FOOT. Foot X-Ray 02/03/18 18:34 IMPRESSION: SEVERELY COMMINUTED FRACTURE INVOLVING THE ENTIRETY OF THE CALCANEUS WITH EXTENSION INTO THE SUBTALAR JOINT SPACE. ORTHOPEDIC CONSULTATION RECOMMENDED. NO ADDITIONAL FRACTURE IDENTIFIED INVOLVING THE RIGHT OR RIGHT FOOT. Ankle X-Ray 02/03/18 18:55 IMPRESSION: SEVERELY COMMINUTED FRACTURE INVOLVING THE ENTIRETY OF THE CALCANEUS WITH EXTENSION INTO THE SUBTALAR JOINT SPACE. ORTHOPEDIC CONSULTATION RECOMMENDED. NO ADDITIONAL FRACTURE IDENTIFIED INVOLVING THE RIGHT OR RIGHT FOOT. Lumbar Spine X-Ray 02/03/18 18:55 IMPRESSION: MILDLY DISPLACED FRACTURE ANTERIOR SUPERIOR ENDPLATE L2 VERTEBRAL BODY. ADDITIONAL CHRONIC CHANGES ABOVE. Lumbar Spine CT 02/03/18 22:25 IMPRESSION: 1. Mild L2 anterior vertebral fracture. 2. Mild retroperitoneal lymphadenopathy. Lower Extremity CT 02/03/18 22:26 IMPRESSION: Extensively comminuted right calcaneal fracture. Upper Extremity CT 02/03/18 22:26 IMPRESSION: Comminuted intra-articular fracture of the distal right radius. Limitation. Humerus X-Ray 02/04/18 00:00 IMPRESSION: Comminuted fracture between middle and distal 3rd of right humerus. Wrist X-Ray 02/04/18 00:00 IMPRESSION: Status post internal fixation of comminuted distal right radial and radius styloid fracture. Assessment & Plan - Diagnosis (1) Griffith's fracture of distal radius, closed Qualifiers: Encounter type: initial encounter Laterality: right Qualified Code(s): S52.561A - Griffith's fracture of right radius, initial encounter for closed fracture Is this a current diagnosis for this admission?: Yes Plan: 57-year-old white male 1 day status post open reduction internal fixation for right proximal humeral fracture and distal radius fracture. Patient's OpSite dressings are clean dry and intact. These are left in place. He has had initial difficulty with pain control. These concerns were addressed his fentanyl was discontinued he was initiated on IV morphine 2 mg every 2 hours as needed for pain. Patient also has moderate motor deficit along distribution of radial nerve. He was informed this is likely a radial nerve palsy resulting from the nature of his injury. Patient voiced understanding of these findings. He is nonweightbearing on right lower extremity due to calcaneal fracture, however would likely benefit from gentle range of motion exercises with right upper extremity as well as occupational therapy services. Throughout his stay at the hospital we will continue: 1. Analgesic medication 2. DVT prophylaxis 3. Occupational Therapy right upper extremity 4. TLSO bracing for compression fracture (2) Calcaneal fracture Qualifiers: Encounter type: initial encounter Calcaneus location: body Fracture type : closed Fracture alignment: displaced Laterality: right Qualified Code(s) : S92.011A - Displaced fracture of body of right calcaneus, initial encounter for closed fracture Plan: Patient is currently nonweightbearing status on right lower extremity. Decision will be made today whether patient will be taken for open reduction internal fixation right calcaneal fracture by Dr. Sanchez on Tuesday, February 06, 2018. Pending decision patient will be n.p.o. after midnight and hold will be placed on Xarelto until surgery is completed.
[2018-02-05] MEDS ORDERED: GLUCAGON,HUMAN RECOMB 1 MG INJ SUBCUT PRN (16:42)
[2018-02-05] MEDS ORDERED: DEXTROSE 50%-WATER 25 GM/50 ML DISP.SYRIN IV PRN ×2 (16:42)
[2018-02-05] MEDS ORDERED: DEXTROSE 40% GEL 15 GM TUBE PO PRN ×2 (16:42)
[2018-02-05] MEDS: RIVAROXABAN 10 MG TABLET PO SCH (17:24)
[2018-02-06] MEDS: MORPHINE SULFATE 10 MG/ML INJ IV PRN ×7 (03:40→23:51)
[2018-02-06] MEDS: LANSOPRAZOLE 30 MG TAB.RAP.DR PO SCH (05:50)
[2018-02-06] MEDS: RINGERS SOLUTION,LACTATED 1,000 ML IV PRN (05:59)
[2018-02-06] MEDS ORDERED: CEFAZOLIN 2 GM/D5W RTU 2 GM/50 ML RTUPB IV PRN (06:51)
[2018-02-06 06:56] LABS: ABSOLUTE EOSINOPHILS # (AUTO) 0.1 10^3/uL (0.0-0.6); ABSOLUTE LYMPHOCYTES (AUTO) 1.2 10^3/uL (0.5-4.7); ABSOLUTE MONOCYTES (AUTO) 0.9 10^3/uL (0.1-1.4); ABSOLUTE NEUT (AUTO) 6.5 10^3/uL (1.7-8.2); BASOPHILS % (AUTO) 0.4 % (0-2); EOSINOPHILS % (AUTO) 1.4 % (0-6); HEMATOCRIT 33.9 % (37.9-51.0); HEMOGLOBIN 12.2 g/dL (13.5-17.0); LYMPHOCYTES % (AUTO) 13.5 % (13-45); MEAN CORPUSCULAR HEMOGLOBIN 34.3 pg (27.0-33.4); MEAN CORPUSCULAR VOLUME 95 fl (80-97); MONOCYTES % (AUTO) 10.4 % (3-13); PLATELET COUNT 180 10^3/uL (150-450); RED BLOOD COUNT 3.56 10^6/uL (4.35-5.55); RED CELL DISTRIBUTION WIDTH 12.3 % (11.5-14.0); SEGMENTED NEUTROPHILS % (AUTO) 74.3 % (42-78); TOTAL CELLS COUNTED % (AUTO) 100 %; WHITE BLOOD COUNT 8.7 10^3/uL (4.0-10.5)
[2018-02-06] MEDS ORDERED: RINGERS SOLUTION,LACTATED 1,000 ML IV PRN (06:57)
[2018-02-06] MEDS: LISINOPRIL 10 MG TABLET PO SCH ×2 (08:36→21:20)
[2018-02-06] MEDS: ACETAMINOPHEN 325 MG TABLET PO PRN ×3 (08:36→21:20)
[2018-02-06] MEDS: AMLODIPINE BESYLATE 5 MG TABLET PO SCH (08:36)
--- NOTE | 2018-02-06 09:46 | PDOC PROGRESS REPORT ---
Subjective Progress Note for:: 02/06/18 Subjective:: Patient lying in bed complete. Patient states pain is significantly improved after the morphine. His minimal back pain. Does have some tingling in his toes which is unchanged. Denies chest pain shortness of breath. Denies chills or sweats. Denies abdominal discomfort. Reason For Visit: RIGHT DISTAL RADIUS FRACTURE, RIGHT HUMERAL SHAFT Physical Exam Vital Signs: Temp Pulse Resp BP Pulse Ox 101.4 F H 106 H 16 145/80 H 96 02/06/18 07:58 02/06/18 07:58 02/06/18 07:58 02/06/18 07:58 02/06/18 07:58 Intake & Output 02/05/18 02/06/18 02/07/18 06:59 06:59 06:59 Intake Total 4540 2483 Output Total 2950 3350 Balance 1590 -867 Weight 100 kg General appearance: PRESENT: no acute distress, well-developed, well-nourished Head exam: PRESENT: atraumatic, normocephalic Eye exam: PRESENT: conjunctiva pink, EOMI, PERRLA. ABSENT: scleral icterus Ear exam: PRESENT: normal external ear exam Mouth exam: PRESENT: moist, tongue midline Neck exam: PRESENT: full ROM. ABSENT: carotid bruit, JVD, lymphadenopathy, thyromegaly Respiratory exam: PRESENT: unlabored Cardiovascular exam: PRESENT: RRR. ABSENT: diastolic murmur, rubs, systolic murmur Pulses: PRESENT: normal dorsalis pedis pul, +2 pedal pulses bilateral Vascular exam: PRESENT: normal capillary refill GI/Abdominal exam: PRESENT: normal bowel sounds, soft. ABSENT: distended, guarding, mass, organolmegaly, rebound, tenderness Rectal exam: PRESENT: deferred Musculoskeletal exam: PRESENT: other - Right upper extremity: Splint intact. Cap refill less than 2 seconds. Intact sensation throughout median ulnar nerve distribution. Intact MP/IP joint flexion. Weakness with MP joint extension. Lacks retropulsion of the thumb. Right lower extremity: Splint intact. Intact flexion-extension of the toes. Cap refill less than 2 seconds. No sensory deficits. Left lower extremity no calf tenderness. Negative Homans. Neurological exam: PRESENT: alert, awake, oriented to person, oriented to place , oriented to time, oriented to situation, CN II-XII grossly intact. ABSENT: motor sensory deficit Psychiatric exam: PRESENT: appropriate affect, normal mood. ABSENT: homicidal ideation, suicidal ideation Skin exam: PRESENT: dry, intact, warm. ABSENT: cyanosis, rash Results Laboratory Results: 02/06/18 06:39 02/05/18 06:25 02/06/18 06:39 WBC 8.7 RBC 3.56 L Hgb 12.2 L Hct 33.9 L MCV 95 MCH 34.3 H MCHC 36.0 RDW 12.3 Plt Count 180 Seg Neutrophils % 74.3 Lymphocytes % 13.5 Monocytes % 10.4 Eosinophils % 1.4 Basophils % 0.4 Absolute Neutrophils 6.5 Absolute Lymphocytes 1.2 Absolute Monocytes 0.9 Absolute Eosinophils 0.1 Absolute Basophils 0.0 Impressions: Cervical Spine CT 02/03/18 00:00 IMPRESSION: MILD DEGENERATIVE CHANGE OF THE CERVICAL SPINE WITHOUT FRACTURE. VASCULAR CALCIFICATIONS. Os Calcis X-ray 02/03/18 00:00 IMPRESSION: SEVERELY COMMINUTED FRACTURE INVOLVING THE ENTIRETY OF THE CALCANEUS WITH EXTENSION INTO THE SUBTALAR JOINT SPACE. ORTHOPEDIC CONSULTATION RECOMMENDED. NO ADDITIONAL FRACTURE IDENTIFIED INVOLVING THE RIGHT OR RIGHT FOOT. Foot X-Ray 02/03/18 18:34 IMPRESSION: SEVERELY COMMINUTED FRACTURE INVOLVING THE ENTIRETY OF THE CALCANEUS WITH EXTENSION INTO THE SUBTALAR JOINT SPACE. ORTHOPEDIC CONSULTATION RECOMMENDED. NO ADDITIONAL FRACTURE IDENTIFIED INVOLVING THE RIGHT OR RIGHT FOOT. Ankle X-Ray 02/03/18 18:55 IMPRESSION: SEVERELY COMMINUTED FRACTURE INVOLVING THE ENTIRETY OF THE CALCANEUS WITH EXTENSION INTO THE SUBTALAR JOINT SPACE. ORTHOPEDIC CONSULTATION RECOMMENDED. NO ADDITIONAL FRACTURE IDENTIFIED INVOLVING THE RIGHT OR RIGHT FOOT. Lumbar Spine X-Ray 02/03/18 18:55 IMPRESSION: MILDLY DISPLACED FRACTURE ANTERIOR SUPERIOR ENDPLATE L2 VERTEBRAL BODY. ADDITIONAL CHRONIC CHANGES ABOVE. Lumbar Spine CT 02/03/18 22:25 IMPRESSION: 1. Mild L2 anterior vertebral fracture. 2. Mild retroperitoneal lymphadenopathy. Lower Extremity CT 02/03/18 22:26 IMPRESSION: Extensively comminuted right calcaneal fracture. Upper Extremity CT 02/03/18 22:26 IMPRESSION: Comminuted intra-articular fracture of the distal right radius. Limitation. Humerus X-Ray 02/04/18 00:00 IMPRESSION: Comminuted fracture between middle and distal 3rd of right humerus. Wrist X-Ray 02/04/18 00:00 IMPRESSION: Status post internal fixation of comminuted distal right radial and radius styloid fracture. Assessment & Plan - Diagnosis (1) Griffith's fracture of distal radius, closed Qualifiers: Encounter type: initial encounter Laterality: right Qualified Code(s): S52.561A - Griffith's fracture of right radius, initial encounter for closed fracture Is this a current diagnosis for this admission?: Yes (2) Calcaneal fracture Qualifiers: Encounter type: initial encounter Calcaneus location: body Fracture type : closed Fracture alignment: displaced Laterality: right Qualified Code(s) : S92.011A - Displaced fracture of body of right calcaneus, initial encounter for closed fracture (3) Right humeral fracture Qualifiers: Encounter type: initial encounter Humerus Location: proximal Fracture type: closed Fracture morphology: other fracture Fracture alignment: displaced Qualified Code(s): S42.291A - Other displaced fracture of upper end of right humerus, initial encounter for closed fracture Is this a current diagnosis for this admission?: Yes Plan: Postop day #2 status post ORIF right humeral shaft/distal radius Patient continues to demonstrate episodes of temperature greater than 101.5 without known origin. I have recommended continuing the ISP. His Sepulveda has been DC'd given the persistent fever. Chest x-ray and blood cultures have also been ordered given the 48 hour window postoperatively I feel this is likely noninfectious in nature. He is also been on Xarelto for DVT prophylaxis thus I do not feel underlying DVT is likely the culprit. At this point we will continue to monitor patient's fever if it persists will obtain consultation from the hospitalist for further evaluation. As for the patient's right humerus have encouraged continuing passive and active range of motion. He does demonstrate weakness of the radial nerve distribution which is not unexpected given the location of the radial nerve, intraoperative contusion noted which likely would contribute to neurapraxia. Patient will proceed with definitive fixation of his right calcaneus today risks and benefits of the surgical procedure have been explained to the patient. Once his calcaneus has been fixated we will set him up with physical therapy for transfers only. Will maintain nonweightbearing of the right upper and lower extremity. Patient is to be fitted for a TLSO brace today to wear for comfort.
--- NOTE | 2018-02-06 10:07 | RADIOLOGY REPORT (SQ) ---
EXAM DESCRIPTION: CHEST SINGLE VIEW COMPLETED DATE/TIME: 02/06/2018 9:53 am REASON FOR STUDY: temperature COMPARISON: None. EXAM PARAMETERS: NUMBER OF VIEWS: One view. TECHNIQUE: Single frontal radiographic view of the chest acquired. RADIATION DOSE: NA LIMITATIONS: None. FINDINGS: LUNGS AND PLEURA: Low lung volumes limits the examination. No opacities, masses or pneum othorax. No pleural effusion. MEDIASTINUM AND HILAR STRUCTURES: No masses. Contour normal. HEART AND VASCULAR STRUCTURES: Heart normal in size. Normal vasculature. BONES: No acute findings. HARDWARE: None in the chest. OTHER: No other significant finding. IMPRESSION: 1 low lung volumes limits the examination. NO ACUTE RADIOGRAPHIC FINDING IN THE CHEST. TECHNICAL DOCUMENTATION: JOB ID: [id number] [employer]- All Rights Reserved Reading location - IP/workstation name: [email or web address]
[2018-02-06 10:08] LABS: APPEARANCE,URINE CLEAR; BILIRUBIN,URINE NEGATIVE (NEGATIVE); COLOR,URINE YELLOW; GLUCOSE, URINE 50 mg/dL (NEGATIVE); KETONES,URINE 100 mg/dL (NEGATIVE); LEUKOCYTE ESTERASE,URINE NEGATIVE (NEGATIVE); NITRITE,URINE NEGATIVE (NEGATIVE); PROTEIN,URINE 30 mg/dL (NEGATIVE); URINE SPECIFIC GRAVITY 1.015; UROBILINOGEN,URINE NEGATIVE mg/dL (<2.0)
[2018-02-06] MEDS: DOCUSATE SODIUM 100 MG CAPSULE PO SCH (11:41)
[2018-02-06] MEDS: OXYCODONE HCL SR 10 MG TABLET PO SCH (11:41)
[2018-02-06] MEDS: PREGABALIN 75 MG CAPSULE PO SCH ×2 (11:41→18:28)
[2018-02-06] MEDS ORDERED: CEFAZOLIN INJ 1 GM VIAL ONE (11:42)
[2018-02-06] MEDS ORDERED: PROPOFOL INJ 200 MG/20 ML VIAL IV ONE ×2 (11:46→13:41)
[2018-02-06] MEDS ORDERED: MIDAZOLAM 2 MG/2 ML INJ ONE (11:46)
[2018-02-06] MEDS ORDERED: FENTANYL CITRATE INJ/PF 100 MCG/2 ML AMPUL ONE (11:46)
[2018-02-06] MEDS ORDERED: DEXTROSE 5%-WATER 500 ML with AMIODARONE HCL 900 MG IV PRN ×2 (13:07)
[2018-02-06 13:34] LABS: ALANINE AMINOTRANSFERASE 45 U/L (21-72); ALBUMIN 2.6 g/dL (3.5-5.0); ALKALINE PHOSPHATASE 46 U/L (38-126); ANION GAP 7 (5-19); ASPARTATE AMINO TRANSFERASE 83 U/L (17-59); BILIRUBIN,DIRECT 0.3 mg/dL (0.0-0.4); BLOOD UREA NITROGEN 14 mg/dL (7-20); CARBON DIOXIDE 26 mmol/L (22-30); CHLORIDE 101 mmol/L (98-107); GLUCOSE 108 mg/dL (75-110); POTASSIUM 3.9 mmol/L (3.6-5.0); SODIUM 133.9 mmol/L (137-145); TOTAL PROTEIN 4.5 g/dL (6.3-8.2); TRIGLYCERIDES 195 mg/dL (<150)
[2018-02-06] MEDS ORDERED: ESMOLOL HCL INJ/PF 100 MG/10 ML SDV IV ONE (13:39)
[2018-02-06 13:46] LABS: DIRECT LDL 77 mg/dL (<100)
[2018-02-06 13:50] LABS: CREATINE KINASE MB 0.68 ng/mL (<4.55)
[2018-02-06 13:51] LABS: TROPONIN I < 0.012 ng/mL
[2018-02-06 14:11] LABS: CREATINE KINASE 3969 U/L (55-170)
[2018-02-06] MEDS ORDERED: METOPROLOL SUCCINATE 25 MG TAB.SR.24H PO ONE (14:30)
[2018-02-06] MEDS ORDERED: SUCCINYLCHOLINE CHLORIDE INJ 200 MG/10 ML VIAL ONE (14:51)
[2018-02-06] MEDS ORDERED: LIDOCAINE 2% INJ-PF (20 MG/ML) 2 ML AMPUL ONE (14:51)
[2018-02-06] MEDS ORDERED: ONDANSETRON HCL INJ/PF 4 MG/2 ML SDV ONE (14:51)
[2018-02-06] MEDS: RIVAROXABAN 10 MG TABLET PO SCH (16:19)
--- NOTE | 2018-02-06 19:19 | EKG REPORT ---
SEVERITY:- ABNORMAL ECG - ATRIAL FIBRILLATION, V-RATE [id number] REPOLARIZATION ABNORMALITY, PROB RATE RELATED : Confirmed by: Masood Gonzalez 06-Feb-2018 19:18:37
--- NOTE | 2018-02-06 19:19 | EKG REPORT ---
SEVERITY:- ABNORMAL ECG - SINUS TACHYCARDIA MULTIPLE ATRIAL PREMATURE COMPLEXES NONSPECIFIC T CHANGES : Confirmed by: Masood Gonzalez 06-Feb-2018 19:18:29
--- NOTE | 2018-02-06 20:13 | XCELERA REPORT ---
[address] [address] Transthoracic Echocardiogram Report Name: CORY JOE Age: 57 yrs Gender: Male : 1960 Patient Status: Inpatient Patient Location: [address] [place] [address] Study Date: 02/06/2018 02:14 PM Height: 68 in Weight: 220 lb BSA: 2.1 m2 Procedure: A complete two-dimensional transthoracic echocardiogram was performed (2D, M-mode, spectral and color flow Doppler). The study was technically adequate with some images being suboptimal in quality. Reason For Study: A. fib Ordering Physician: MASOOD HAM Performed By: Rema Thomas Interpretation Summary The left ventricular ejection fraction is normal. There is mild concentric left ventricular hypertrophy. Doppler measurements suggest impaired left ventricular relaxation, which is associated with grade I/IV or mild diastolic dysfunction The left ventricle is grossly normal size. No regional wall motion abnormalities noted. The right ventricular systolic function is normal. The right ventricle is mildly dilated. The right atrium is mildly dilated. Borderline left atrial enlargement. There is no mitral valve stenosis. There is a trace amount of mitral regurgitation There is no aortic valve stenosis No aortic regurgitation is present. There is a trace or physiologic amount of tricuspid regurgitation Tricuspid regurgitation jet envelope not well defined to measure RV systolic pressure accurately. Minimal pericardial effusion. MMode/2D Measurements & Calculations RVDd: 2.4 cm LVIDd: 4.3 cm FS: 32.7 % Ao root diam: 3.1 cm IVSd: 1.1 cm LVIDs: 2.9 cm EDV(Teich): 80.9 ml LVPWd: 1.1 cm ESV(Teich): 31.2 ml Ao root area: 7.3 cm2 EF(Teich): 61.4 % LVOT diam: 2.2 cm LVOT area: 3.7 cm2 Doppler Measurements & Calculations MV E max jessica: MV dec slope: Ao V2 max: LV V1 max P.0 cm/sec 511.3 cm/sec2 175.4 cm/sec 10.2 mmHg MV A max jessica: MV dec time: Ao max PG: LV V1 max: 86.3 cm/sec 0.21 sec 12.3 mmHg 159.3 cm/sec MV E/A: 1.2 MARCIA(V,D): 3.3 cm2 PA V2 max: TR max jessica: 99.1 cm/sec 215.5 cm/sec PA max P.9 mmHgTR max P.6 mmHg Left Ventricle The left ventricle is grossly normal size. There is mild concentric left ventricular hypertrophy. The left ventricular ejection fraction is normal. Doppler measurements suggest impaired left ventricular relaxation, which is associated with grade I/IV or mild diastolic dysfunction. No regional wall motion abnormalities noted. Right Ventricle The right ventricle is mildly dilated. There is normal right ventricular wall thickness. The right ventricular systolic function is normal. Atria The right atrium is mildly dilated. Borderline left atrial enlargement. Interarterial septum not well visualized and not well dopplered. Cannot comment on ASD/PFO presence. Mitral Valve The mitral valve is grossly normal. There is no mitral valve stenosis. There is a trace amount of mitral regurgitation. Aortic Valve The aortic valve is grossly normal. There is no aortic valve stenosis. No aortic regurgitation is present. Tricuspid Valve The tricuspid valve is not well visualized, but is grossly normal. There is no tricuspid stenosis. There is a trace or physiologic amount of tricuspid regurgitation. Tricuspid regurgitation jet envelope not well defined to measure RV systolic pressure accurately. Pulmonic Valve The pulmonic valve is not well visualized. Great Vessels The aortic root is not well visualized but is probably normal size. The inferior vena cava was not visualized. Effusions Minimal pericardial effusion. : MASOOD HAM > Masood Ham
--- NOTE | 2018-02-06 20:23 | PDOC CONSULTATION ---
Consultation Consult Date: 02/06/18 Attending physician:: EMILI SPENCER Consult reason:: Atrial fibrillation History of Present Illness Admission Date/PCP: 02/03/18 22:35 KIMBERLY ESCUDERO MD Patient complains of: Hypotension History of Present Illness: CORY JOE is a 57 year old male who was on a ladder earlier today when he fell 9 feet onto his right side. Patient was unable to weight-bear or ambulate and had significant pain along with deformity of his right arm. Patient was brought to the emergency room where x-rays demonstrated multiple fractures of his right side and a lumbar fracture. Patient denies any head trauma. Denies headache, dizziness or loss of consciousness. Pain 5/5 which has improved with fentanyl. Does have some tingling in the toes denies numbness of the upper extremity. Pain worse with motion of the arm and leg. This history obtained by Dr. silver reviewed. On Tuesday, patient underwent right upper extremity orthopedic surgery during which he needed 6 hours of anesthesia. This morning, patient was supposed to undergo anesthesia and surgery for calcaneal fracture. However during induction he was noted to have severe tachycardia with borderline low blood pressure. Patient initially received adenosine which showed underlying atrial flutter. I was called to evaluate patient in the PACU unit. When patient was seen, he was noted to have atrial fibrillation with rapid ventricular response with heart rate ranging into 160-170. Patient was alert but still under effect of anesthesia. He was noted to have some ST segment depression. His blood pressure was noted to be somewhat on the low side but still above 90. Because of EKG changes, it was felt that patient will benefit from synchronized cardioversion. This was performed. Conscious sedation performed by Dr. Pedroza. Patient subsequently became more alert and was noted to be without any chest pain. He denied any prior history of heart problems. A 2D echo was performed which shows normal LVEF, mild RV enlargement. Past Medical History Cardiac Medical History: Reports: Hypertension Past Surgical History Past Surgical History: Reports: Orthopedic Surgery Social History Information Source: Patient Smoking Status: Former Smoker Last Time Smoked: 11/07/1999 Frequency of Alcohol Use: Social Hx Recreational Drug Use: No Hx Prescription Drug Abuse: No - Advance Directive Resuscitation Status: Full Code Family History Family History: Hypertension Parental Family History Reviewed: Yes Children Family History Reviewed: Yes Sibling(s) Family History Reviewed.: Yes Medication/Allergy Home Medications: Amlodipine Besylate [Norvasc 5 mg Tablet] 5 mg PO Q12 02/04/18 Lisinopril [Prinivil] 20 mg PO Q12 02/04/18 Simvastatin [Zocor 20 mg Tablet] 20 mg PO QHS 02/04/18 Allergies/Adverse Reactions: No Known Allergies Allergy (Unverified 02/03/18 18:38) Review of Systems Review of Systems: Please see history of present illness and past medical history as wall. Constitutional: No fever or chills reported. Head : No recent chronic headaches, recent head injury. Eyes: No recent eye pain, diplopia, redness, discharge, acute visual changes. Ears: No recent chronic ear pain, acute hearing loss, ear discharge. Oral cavity: No recent ulcerations, bleeding, oral cavity discomfort. Neck: No recent acute neck pain reported. Hematologic: No recent easy bruising or bleeding or hematologic malignancy reported. Lymphatic: No recent lymphatic malignancy, chronic lymphadenopathy reported yet Cardiovascular system review: See history of present illness. Respiratory system review: No recent chronic cough, hemoptysis, blood clots in the lungs reported. Mild Shortness of breath on exertion Gastrointestinal system review: Negative for any recent acute or chronic abdominal pain, hematemesis, melena, recent change in bowel habits. Genitourinary system review: No recent acute or chronic hematuria, flank pain, UTI etc. reported. Skin system review: Negative for any recent abnormal bruising, no rash, no pruritus reported. Neurologic: No prior history of strokes, mini strokes, seizure disorder. Describes history of snoring Psychologic: No history of major psychosis or major depression reported. Musculoskeletal: Minor aches and pains reported. No acute joint swelling reported. Endocrine: No recent polyuria, polydipsia, recent heat or cold intolerance. Physical Exam Vital Signs: Temp Pulse Resp BP Pulse Ox 101.7 F H 102 H 20 139/75 H 96 02/06/18 15:57 02/06/18 15:57 02/06/18 15:57 02/06/18 15:57 02/06/18 15:57 Intake & Output 02/05/18 02/06/18 02/07/18 06:59 06:59 06:59 Intake Total 4540 2483 1100 Output Total 2950 3350 600 Balance 1590 -867 500 Weight 100 kg Exam: GENERAL: well-nourished and in no acute distress. Alert and oriented x3 HEAD: Atraumatic, normocephalic. EYES: Pupils equal round and reactive to light, extraocular movements intact, sclera anicteric, conjunctiva are normal. ENT: TMs normal, nares patent, oropharynx clear without exudates. Moist mucous membranes. No oral ulcerations or bleeding gums noted NECK: supple without lymphadenopathy. Trachea is central. No cervical or axillary lymphadenopathy noted. Carotids are 2+, JVD WNL LUNGS: Respiration seems nonlabored, no significant accessory muscle action noted. Breath sounds clear to auscultation bilaterally and equal noted. No wheezes rales or rhonchi noted. No significant dullness noted on percussion. CHEST: Palpation of the chest wall shows no significant chest wall tenderness. No other significant abnormalities noted. HEART: [place] [employer] PACKING, No PSH, 1/6 ROSENDO aortic area, 1/6 justice systolic murmur mitral area, no rubs, no gallops. ABDOMEN: Soft, no significant tenderness appreciated, normoactive bowel sounds. No guarding, no rebound. No rigidity noted . No masses appreciated. EXTREMITIES: Pedal pulses are 1-2+, no calf tenderness noted. No clubbing or cyanosis.trace pedal edema noted NEUROLOGICAL: Focused neurological exam showed no significant neurologic deficit. Normal speech, no focal weakness appreciated. PSYCH: Normal mood, normal affect. Judgment and insight within normal limits. SKIN: No significant ecchymosis, skin is noted to be warm. MUSCULOSKELETAL EXAM: No significant acute joint swelling noted. Postsurgical changes noted right upper extremity. Other orthopedic abnormalities noted. Results Laboratory Results: 02/06/18 06:39 02/06/18 12:54 02/06/18 02/06/18 02/06/18 06:39 08:45 12:54 WBC 8.7 RBC 3.56 L Hgb 12.2 L Hct 33.9 L MCV 95 MCH 34.3 H MCHC 36.0 RDW 12.3 Plt Count 180 Seg Neutrophils % 74.3 Lymphocytes % 13.5 Monocytes % 10.4 Eosinophils % 1.4 Basophils % 0.4 Absolute Neutrophils 6.5 Absolute Lymphocytes 1.2 Absolute Monocytes 0.9 Absolute Eosinophils 0.1 Absolute Basophils 0.0 Sodium 133.9 L Potassium 3.9 Chloride 101 Carbon Dioxide 26 Anion Gap 7 BUN 14 Creatinine 0.79 Est GFR ( Amer) > 60 Est GFR (Non-Af Amer) > 60 Glucose 108 Calcium 8.0 L Total Bilirubin 1.0 AST 83 H ALT 45 Alkaline Phosphatase 46 Total Protein 4.5 L Albumin 2.6 L Triglycerides 195 H Cholesterol 129.30 LDL Cholesterol Direct 77 VLDL Cholesterol 39.0 H HDL Cholesterol 23 L TSH Urine Color YELLOW Urine Appearance CLEAR Urine pH 6.0 Ur Specific [place] 1.015 Urine Protein 30 H Urine Glucose (UA) 50 H Urine Ketones 100 H Urine Blood LARGE H Urine Nitrite NEGATIVE Ur Leukocyte Esterase NEGATIVE Urine WBC (Auto) 1 Urine RBC (Auto) 1 02/06/18 12:54 WBC RBC Hgb Hct MCV MCH MCHC RDW Plt Count Seg Neutrophils % Lymphocytes % Monocytes % Eosinophils % Basophils % Absolute Neutrophils Absolute Lymphocytes Absolute Monocytes Absolute Eosinophils Absolute Basophils Sodium Potassium Chloride Carbon Dioxide Anion Gap BUN Creatinine Est GFR ( Amer) Est GFR (Non-Af Amer) Glucose Calcium Total Bilirubin AST ALT Alkaline Phosphatase Total Protein Albumin Triglycerides Cholesterol LDL Cholesterol Direct VLDL Cholesterol HDL Cholesterol TSH 1.82 Urine Color Urine Appearance Urine pH Ur Specific [place] Urine Protein Urine Glucose (UA) Urine Ketones Urine Blood Urine Nitrite Ur Leukocyte Esterase Urine WBC (Auto) Urine RBC (Auto) 02/06/18 02/06/18 12:54 12:54 Creatine Kinase 3969 H CK-MB (CK-2) 0.68 Troponin I < 0.012 EKG Comments: Initial EKG shows atrial fibrillation with rapid ventricular response T-wave changes lateral chest leads consistent with ischemia. Subsequent EKG post cardioversion shows conversion to sinus rhythm. Impressions: Cervical Spine CT 02/03/18 00:00 IMPRESSION: MILD DEGENERATIVE CHANGE OF THE CERVICAL SPINE WITHOUT FRACTURE. VASCULAR CALCIFICATIONS. Os Calcis X-ray 02/03/18 00:00 IMPRESSION: SEVERELY COMMINUTED FRACTURE INVOLVING THE ENTIRETY OF THE CALCANEUS WITH EXTENSION INTO THE SUBTALAR JOINT SPACE. ORTHOPEDIC CONSULTATION RECOMMENDED. NO ADDITIONAL FRACTURE IDENTIFIED INVOLVING THE RIGHT OR RIGHT FOOT. Foot X-Ray 02/03/18 18:34 IMPRESSION: SEVERELY COMMINUTED FRACTURE INVOLVING THE ENTIRETY OF THE CALCANEUS WITH EXTENSION INTO THE SUBTALAR JOINT SPACE. ORTHOPEDIC CONSULTATION RECOMMENDED. NO ADDITIONAL FRACTURE IDENTIFIED INVOLVING THE RIGHT OR RIGHT FOOT. Ankle X-Ray 02/03/18 18:55 IMPRESSION: SEVERELY COMMINUTED FRACTURE INVOLVING THE ENTIRETY OF THE CALCANEUS WITH EXTENSION INTO THE SUBTALAR JOINT SPACE. ORTHOPEDIC CONSULTATION RECOMMENDED. NO ADDITIONAL FRACTURE IDENTIFIED INVOLVING THE RIGHT OR RIGHT FOOT. Lumbar Spine X-Ray 02/03/18 18:55 IMPRESSION: MILDLY DISPLACED FRACTURE ANTERIOR SUPERIOR ENDPLATE L2 VERTEBRAL BODY. ADDITIONAL CHRONIC CHANGES ABOVE. Lumbar Spine CT 02/03/18 22:25 IMPRESSION: 1. Mild L2 anterior vertebral fracture. 2. Mild retroperitoneal lymphadenopathy. Lower Extremity CT 02/03/18 22:26 IMPRESSION: Extensively comminuted right calcaneal fracture. Upper Extremity CT 02/03/18 22:26 IMPRESSION: Comminuted intra-articular fracture of the distal right radius. Limitation. Humerus X-Ray 02/04/18 00:00 IMPRESSION: Comminuted fracture between middle and distal 3rd of right humerus. Wrist X-Ray 02/04/18 00:00 IMPRESSION: Status post internal fixation of comminuted distal right radial and radius styloid fracture. Chest X-Ray 02/06/18 00:00 IMPRESSION: 1 low lung volumes limits the examination. NO ACUTE RADIOGRAPHIC FINDING IN THE CHEST. Assessment & Plan - Diagnosis (1) Atrial fibrillation Qualifiers: Atrial fibrillation type: unspecified Qualified Code(s): I48.91 - Unspecified atrial fibrillation Is this a current diagnosis for this admission?: Yes (2) Multiple fractures Is this a current diagnosis for this admission?: Yes (3) Hypertension Qualifiers: Hypertension type: essential hypertension Qualified Code(s): I10 - Essential (primary) hypertension Is this a current diagnosis for this admission?: Yes (4) Dyslipidemia Is this a current diagnosis for this admission?: Yes (5) Obesity Qualifiers: Obesity type: unspecified obesity type Obesity classification: unspecified obesity classification Serious obesity comorbidity presence: without serious comorbidity Qualified Code(s): E66.9 - Obesity, unspecified Is this a current diagnosis for this admission?: Yes (6) Sleep disorder breathing Is this a current diagnosis for this admission?: Yes - Notes Notes: Atrial fibrillation: Patient was noted to be unstable at high heart rate and therefore received synchronized cardioversion without any complications. At this point since patient is needing surgery fairly soon, will start patient on amiodarone bolus and drip protocol. Will attempt to give amiodarone short-term , maybe less than a month. Will start patient on beta-torres therapy. Hypertension: Continue antihypertensive therapy. Will recommend beta-blockers and EZRA inhibitors. Dyslipidemia: Continue statin therapy. Statin therapy does reduce perioperative risk for cardiac events. Obesity: Patient will benefit from weight loss. Sleep disordered breathing: This is suspected being present due to patient oropharyngeal exam, body habitus, comorbid diagnosis of hypertension and now atrial fibrillation. Patient will benefit from a sleep evaluation as an outpatient. 2D echo shows normal LVEF. At this point patient could proceed with surgery tomorrow. Addendum: Procedure note Date of procedure: February 06, 2018. Procedure report: External synchronized cardioversion of atrial fibrillation with RVR to normal sinus rhythm. Clinical indication: Atrial fibrillation with rapid ventricular response. Description: Patient was noted to have atrial fibrillation with rapid ventricular response. Patient had EKG changes because of rapid ventricular response. Patient also had somewhat of a low blood pressure. It was felt that patient will overall benefit from cardioversion of atrial fibrillation to normal sinus rhythm. Patient was connected to cardioverter defibrillator. Anterior and posterior defibrillator patches were applied. A single 200 J shock synchronized to QRS complex was given to the patient with conversion to sinus rhythm. Patient did also receive IV amiodarone at the same time. Impression: Successful conversion of atrial fibrillation to sinus rhythm. - Time Time Spent: 30 to 50 Minutes - Patient remains full code. More than 50% of the time spent coordinating care, discussing management plans with involved caregivers. Management plans discussed with involved personnels. Medical decision making was of moderate to high complexity, patient's has multiple comorbidities. Medications reviewed and adjusted accordingly: Yes
[2018-02-06] MEDS ORDERED: ADENOSINE INJ/PF 6 MG/2 ML SDV IV ONE (21:15)
[2018-02-06] MEDS ORDERED: AMIODARONE HCL INJ 150 MG/3 ML VIAL IV ONE (21:15)
[2018-02-06] MEDS: METOPROLOL SUCCINATE 25 MG TAB.SR.24H PO SCH (21:32)
[2018-02-07] MEDS: MORPHINE SULFATE 10 MG/ML INJ IV PRN ×4 (04:25→20:55)
[2018-02-07 05:32] LABS: ABSOLUTE EOSINOPHILS # (AUTO) 0.1 10^3/uL (0.0-0.6); ABSOLUTE LYMPHOCYTES (AUTO) 0.9 10^3/uL (0.5-4.7); ABSOLUTE NEUT (AUTO) 7.1 10^3/uL (1.7-8.2); BASOPHILS % (AUTO) 0.4 % (0-2); EOSINOPHILS % (AUTO) 1.4 % (0-6); HEMATOCRIT 29.9 % (37.9-51.0); LYMPHOCYTES % (AUTO) 9.8 % (13-45); MEAN CORPUSCULAR HEMOGLOBIN 34.7 pg (27.0-33.4); MEAN CORPUSCULAR HGB CONC 36.7 g/dL (32.0-36.0); MEAN CORPUSCULAR VOLUME 95 fl (80-97); MONOCYTES % (AUTO) 10.6 % (3-13); PLATELET COUNT 216 10^3/uL (150-450); RED BLOOD COUNT 3.16 10^6/uL (4.35-5.55); RED CELL DISTRIBUTION WIDTH 12.2 % (11.5-14.0); SEGMENTED NEUTROPHILS % (AUTO) 77.8 % (42-78); TOTAL CELLS COUNTED % (AUTO) 100 %; WHITE BLOOD COUNT 9.1 10^3/uL (4.0-10.5)
[2018-02-07] MEDS: LANSOPRAZOLE 30 MG TAB.RAP.DR PO SCH (06:20)
[2018-02-07] MEDS: ACETAMINOPHEN 325 MG TABLET PO PRN ×2 (06:21→15:48)
--- NOTE | 2018-02-07 06:44 | PDOC PROGRESS REPORT ---
Subjective Progress Note for:: 02/07/18 Reason For Visit: RIGHT DISTAL RADIUS FRACTURE, RIGHT HUMERAL SHAFT 57-year-old white male who was preop yesterday for an open reduction internal fixation of a right calcaneal fracture. Case was canceled because of the development of a supraventricular tachycardia under general anesthetic. Patient underwent cardioversion and was started on amiodarone Physical Exam Vital Signs: Temp Pulse Resp BP Pulse Ox 37.7 C 87 18 122/71 99 02/07/18 04:06 02/07/18 04:06 02/07/18 04:06 02/07/18 04:06 02/07/18 04:06 Intake & Output 02/05/18 02/06/18 02/07/18 06:59 06:59 06:59 Intake Total 4540 2483 1100 Output Total 2950 3350 1300 Balance 1590 -867 -200 Weight 100 kg General appearance: PRESENT: no acute distress Head exam: PRESENT: normocephalic Respiratory exam: PRESENT: unlabored Cardiovascular exam: PRESENT: RRR Pulses: PRESENT: +1 pedal pulses bilateral Vascular exam: PRESENT: normal capillary refill GI/Abdominal exam: PRESENT: soft Rectal exam: PRESENT: deferred Extremities exam: PRESENT: other - Right lower extremity immobilized in a posterior splint. There is brisk capillary refill and sensory examination is intact. Neurological exam: PRESENT: alert, awake, oriented to person, oriented to place , oriented to time, oriented to situation. ABSENT: motor sensory deficit Psychiatric exam: PRESENT: appropriate affect, normal mood. ABSENT: homicidal ideation, suicidal ideation Skin exam: PRESENT: dry, intact, warm. ABSENT: cyanosis, rash Results Laboratory Results: 02/07/18 05:04 02/06/18 12:54 02/06/18 02/06/18 02/06/18 06:39 08:45 12:54 WBC 8.7 RBC 3.56 L Hgb 12.2 L Hct 33.9 L MCV 95 MCH 34.3 H MCHC 36.0 RDW 12.3 Plt Count 180 Seg Neutrophils % 74.3 Lymphocytes % 13.5 Monocytes % 10.4 Eosinophils % 1.4 Basophils % 0.4 Absolute Neutrophils 6.5 Absolute Lymphocytes 1.2 Absolute Monocytes 0.9 Absolute Eosinophils 0.1 Absolute Basophils 0.0 Sodium 133.9 L Potassium 3.9 Chloride 101 Carbon Dioxide 26 Anion Gap 7 BUN 14 Creatinine 0.79 Est GFR ( Amer) > 60 Est GFR (Non-Af Amer) > 60 Glucose 108 Calcium 8.0 L Total Bilirubin 1.0 AST 83 H ALT 45 Alkaline Phosphatase 46 Total Protein 4.5 L Albumin 2.6 L Triglycerides 195 H Cholesterol 129.30 LDL Cholesterol Direct 77 VLDL Cholesterol 39.0 H HDL Cholesterol 23 L TSH Urine Color YELLOW Urine Appearance CLEAR Urine pH 6.0 Ur Specific [place] 1.015 Urine Protein 30 H Urine Glucose (UA) 50 H Urine Ketones 100 H Urine Blood LARGE H Urine Nitrite NEGATIVE Ur Leukocyte Esterase NEGATIVE Urine WBC (Auto) 1 Urine RBC (Auto) 1 02/06/18 02/07/18 12:54 05:04 WBC 9.1 RBC 3.16 L Hgb 11.0 L Hct 29.9 L MCV 95 MCH 34.7 H MCHC 36.7 H RDW 12.2 Plt Count 216 Seg Neutrophils % 77.8 Lymphocytes % 9.8 L Monocytes % 10.6 Eosinophils % 1.4 Basophils % 0.4 Absolute Neutrophils 7.1 Absolute Lymphocytes 0.9 Absolute Monocytes 1.0 Absolute Eosinophils 0.1 Absolute Basophils 0.0 Sodium Potassium Chloride Carbon Dioxide Anion Gap BUN Creatinine Est GFR ( Amer) Est GFR (Non-Af Amer) Glucose Calcium Total Bilirubin AST ALT Alkaline Phosphatase Total Protein Albumin Triglycerides Cholesterol LDL Cholesterol Direct VLDL Cholesterol HDL Cholesterol TSH 1.82 Urine Color Urine Appearance Urine pH Ur Specific [place] Urine Protein Urine Glucose (UA) Urine Ketones Urine Blood Urine Nitrite Ur Leukocyte Esterase Urine WBC (Auto) Urine RBC (Auto) 02/06/18 02/06/18 12:54 12:54 Creatine Kinase 3969 H CK-MB (CK-2) 0.68 Troponin I < 0.012 Impressions: Cervical Spine CT 02/03/18 00:00 IMPRESSION: MILD DEGENERATIVE CHANGE OF THE CERVICAL SPINE WITHOUT FRACTURE. VASCULAR CALCIFICATIONS. Os Calcis X-ray 02/03/18 00:00 IMPRESSION: SEVERELY COMMINUTED FRACTURE INVOLVING THE ENTIRETY OF THE CALCANEUS WITH EXTENSION INTO THE SUBTALAR JOINT SPACE. ORTHOPEDIC CONSULTATION RECOMMENDED. NO ADDITIONAL FRACTURE IDENTIFIED INVOLVING THE RIGHT OR RIGHT FOOT. Foot X-Ray 02/03/18 18:34 IMPRESSION: SEVERELY COMMINUTED FRACTURE INVOLVING THE ENTIRETY OF THE CALCANEUS WITH EXTENSION INTO THE SUBTALAR JOINT SPACE. ORTHOPEDIC CONSULTATION RECOMMENDED. NO ADDITIONAL FRACTURE IDENTIFIED INVOLVING THE RIGHT OR RIGHT FOOT. Ankle X-Ray 02/03/18 18:55 IMPRESSION: SEVERELY COMMINUTED FRACTURE INVOLVING THE ENTIRETY OF THE CALCANEUS WITH EXTENSION INTO THE SUBTALAR JOINT SPACE. ORTHOPEDIC CONSULTATION RECOMMENDED. NO ADDITIONAL FRACTURE IDENTIFIED INVOLVING THE RIGHT OR RIGHT FOOT. Lumbar Spine X-Ray 02/03/18 18:55 IMPRESSION: MILDLY DISPLACED FRACTURE ANTERIOR SUPERIOR ENDPLATE L2 VERTEBRAL BODY. ADDITIONAL CHRONIC CHANGES ABOVE. Lumbar Spine CT 02/03/18 22:25 IMPRESSION: 1. Mild L2 anterior vertebral fracture. 2. Mild retroperitoneal lymphadenopathy. Lower Extremity CT 02/03/18 22:26 IMPRESSION: Extensively comminuted right calcaneal fracture. Upper Extremity CT 02/03/18 22:26 IMPRESSION: Comminuted intra-articular fracture of the distal right radius. Limitation. Humerus X-Ray 02/04/18 00:00 IMPRESSION: Comminuted fracture between middle and distal 3rd of right humerus. Wrist X-Ray 02/04/18 00:00 IMPRESSION: Status post internal fixation of comminuted distal right radial and radius styloid fracture. Chest X-Ray 02/06/18 00:00 IMPRESSION: 1 low lung volumes limits the examination. NO ACUTE RADIOGRAPHIC FINDING IN THE CHEST. Status: Imported from PACS Assessment & Plan - Diagnosis (1) Calcaneal fracture Qualifiers: Encounter type: initial encounter Calcaneus location: body Fracture type : closed Fracture alignment: displaced Laterality: right Qualified Code(s) : S92.011A - Displaced fracture of body of right calcaneus, initial encounter for closed fracture Plan: 57-year-old with a displaced right calcaneus fracture which would be best treated with an open reduction internal fixation. Tentative plan will be for continued day of observation today and possibly an open reduction internal fixation of the calcaneal fracture tomorrow. - Time Time Spent with patient: 15-24 minutes Anticipated discharge: Home with Homehealth Within: Other
[2018-02-07] MEDS: LISINOPRIL 10 MG TABLET PO SCH ×2 (08:45→20:55)
--- NOTE | 2018-02-07 10:40 | EKG REPORT ---
SEVERITY:- ABNORMAL ECG - SINUS RHYTHM NONSPECIFIC T ABNORMALITIES, DIFFUSE LEADS POSSIBLE LVH : Confirmed by: Masood Gonzalez 07-Feb-2018 10:39:36
[2018-02-07] MEDS: METOPROLOL SUCCINATE 25 MG TAB.SR.24H PO SCH ×2 (11:23→21:54)
[2018-02-07] MEDS: DOCUSATE SODIUM 100 MG CAPSULE PO SCH (11:24)
[2018-02-07] MEDS: PREGABALIN 75 MG CAPSULE PO SCH ×2 (11:24→17:44)
--- NOTE | 2018-02-07 12:58 | PDOC PROGRESS REPORT ---
Subjective Progress Note for:: 02/07/18 Subjective:: Patient seems to be doing better with gradual improvement. Pt is denying any chest arm or neck discomfort. Patient denying any PND, orthopnea. Patient denied any sustained palpitations, dizziness, syncope, near syncope. Patient denying any fever chills. Patient denying any other significant discomfort. Patient is maintaining sinus rhythm. Review of systems: Rest review of systems negative. Medications: Medications have been reviewed. Reason For Visit: RIGHT DISTAL RADIUS FRACTURE, RIGHT HUMERAL SHAFT Physical Exam Vital Signs: Temp Pulse Resp BP Pulse Ox 99.0 F 90 19 151/88 H 97 02/07/18 11:53 02/07/18 11:53 02/07/18 11:53 02/07/18 11:53 02/07/18 11:53 Intake & Output 02/06/18 02/07/18 02/08/18 06:59 06:59 06:59 Intake Total 2483 1100 472 Output Total 3350 1300 Balance -867 -200 472 Weight 100 kg Exam: GENERAL: well-nourished and in no acute distress. Alert and oriented x3 HEAD: Atraumatic, normocephalic. EYES: Pupils equal round and reactive to light, extraocular movements intact, sclera anicteric, conjunctiva are normal. ENT: TMs normal, nares patent, oropharynx clear without exudates. Moist mucous membranes. No oral ulcerations or bleeding gums noted NECK: supple without lymphadenopathy. Trachea is central. No cervical or axillary lymphadenopathy noted. Carotids are 2+, JVD WNL LUNGS: Respiration seems nonlabored, no significant accessory muscle action noted. Breath sounds clear to auscultation bilaterally and equal noted. No wheezes rales or rhonchi noted. No significant dullness noted on percussion. CHEST: Palpation of the chest wall shows no significant chest wall tenderness. No other significant abnormalities noted. HEART: [place] PROGRAM REP, No PSH, 1/6 ROSENDO aortic area, 1/6 justice systolic murmur mitral area, no rubs, no gallops. ABDOMEN: Soft, no significant tenderness appreciated, normoactive bowel sounds. No guarding, no rebound. No rigidity noted . No masses appreciated. EXTREMITIES: Pedal pulses are 1-2+, no calf tenderness noted. No clubbing or cyanosis. negative pedal edema noted NEUROLOGICAL: Focused neurological exam showed no significant neurologic deficit. Normal speech, no focal weakness appreciated. PSYCH: Normal mood, normal affect. Judgment and insight within normal limits. SKIN: No significant ecchymosis, skin is noted to be warm. MUSCULOSKELETAL EXAM: No significant acute joint swelling noted. Postsurgical changes right upper extremity noted which is covered by bandage. Results Laboratory Results: 02/07/18 05:04 02/06/18 12:54 02/06/18 02/06/18 02/07/18 12:54 12:54 05:04 WBC 9.1 RBC 3.16 L Hgb 11.0 L Hct 29.9 L MCV 95 MCH 34.7 H MCHC 36.7 H RDW 12.2 Plt Count 216 Seg Neutrophils % 77.8 Lymphocytes % 9.8 L Monocytes % 10.6 Eosinophils % 1.4 Basophils % 0.4 Absolute Neutrophils 7.1 Absolute Lymphocytes 0.9 Absolute Monocytes 1.0 Absolute Eosinophils 0.1 Absolute Basophils 0.0 Sodium 133.9 L Potassium 3.9 Chloride 101 Carbon Dioxide 26 Anion Gap 7 BUN 14 Creatinine 0.79 Est GFR ( Amer) > 60 Est GFR (Non-Af Amer) > 60 Glucose 108 Calcium 8.0 L Total Bilirubin 1.0 AST 83 H ALT 45 Alkaline Phosphatase 46 Total Protein 4.5 L Albumin 2.6 L Triglycerides 195 H Cholesterol 129.30 LDL Cholesterol Direct 77 VLDL Cholesterol 39.0 H HDL Cholesterol 23 L TSH 1.82 02/06/18 02/06/18 12:54 12:54 Creatine Kinase 3969 H CK-MB (CK-2) 0.68 Troponin I < 0.012 EKG Comments: Shows sinus tachycardia with minor nonspecific T-wave inversion. Impressions: Cervical Spine CT 02/03/18 00:00 IMPRESSION: MILD DEGENERATIVE CHANGE OF THE CERVICAL SPINE WITHOUT FRACTURE. VASCULAR CALCIFICATIONS. Os Calcis X-ray 02/03/18 00:00 IMPRESSION: SEVERELY COMMINUTED FRACTURE INVOLVING THE ENTIRETY OF THE CALCANEUS WITH EXTENSION INTO THE SUBTALAR JOINT SPACE. ORTHOPEDIC CONSULTATION RECOMMENDED. NO ADDITIONAL FRACTURE IDENTIFIED INVOLVING THE RIGHT OR RIGHT FOOT. Foot X-Ray 02/03/18 18:34 IMPRESSION: SEVERELY COMMINUTED FRACTURE INVOLVING THE ENTIRETY OF THE CALCANEUS WITH EXTENSION INTO THE SUBTALAR JOINT SPACE. ORTHOPEDIC CONSULTATION RECOMMENDED. NO ADDITIONAL FRACTURE IDENTIFIED INVOLVING THE RIGHT OR RIGHT FOOT. Ankle X-Ray 02/03/18 18:55 IMPRESSION: SEVERELY COMMINUTED FRACTURE INVOLVING THE ENTIRETY OF THE CALCANEUS WITH EXTENSION INTO THE SUBTALAR JOINT SPACE. ORTHOPEDIC CONSULTATION RECOMMENDED. NO ADDITIONAL FRACTURE IDENTIFIED INVOLVING THE RIGHT OR RIGHT FOOT. Lumbar Spine X-Ray 02/03/18 18:55 IMPRESSION: MILDLY DISPLACED FRACTURE ANTERIOR SUPERIOR ENDPLATE L2 VERTEBRAL BODY. ADDITIONAL CHRONIC CHANGES ABOVE. Lumbar Spine CT 02/03/18 22:25 IMPRESSION: 1. Mild L2 anterior vertebral fracture. 2. Mild retroperitoneal lymphadenopathy. Lower Extremity CT 02/03/18 22:26 IMPRESSION: Extensively comminuted right calcaneal fracture. Upper Extremity CT 02/03/18 22:26 IMPRESSION: Comminuted intra-articular fracture of the distal right radius. Limitation. Humerus X-Ray 02/04/18 00:00 IMPRESSION: Comminuted fracture between middle and distal 3rd of right humerus. Wrist X-Ray 02/04/18 00:00 IMPRESSION: Status post internal fixation of comminuted distal right radial and radius styloid fracture. Chest X-Ray 02/06/18 00:00 IMPRESSION: 1 low lung volumes limits the examination. NO ACUTE RADIOGRAPHIC FINDING IN THE CHEST. Assessment & Plan - Diagnosis (1) Atrial fibrillation Qualifiers: Atrial fibrillation type: unspecified Qualified Code(s): I48.91 - Unspecified atrial fibrillation Is this a current diagnosis for this admission?: Yes (2) Multiple fractures Is this a current diagnosis for this admission?: Yes (3) Hypertension Qualifiers: Hypertension type: essential hypertension Qualified Code(s): I10 - Essential (primary) hypertension Is this a current diagnosis for this admission?: Yes (4) Dyslipidemia Is this a current diagnosis for this admission?: Yes (5) Obesity Qualifiers: Obesity type: unspecified obesity type Obesity classification: unspecified obesity classification Serious obesity comorbidity presence: without serious comorbidity Qualified Code(s): E66.9 - Obesity, unspecified Is this a current diagnosis for this admission?: Yes (6) Sleep disorder breathing Is this a current diagnosis for this admission?: Yes - Notes Notes: Atrial fibrillation: Status post cardioversion yesterday, now completing amiodarone drip protocol. Will order amiodarone 200 mg p.o. twice daily. Started on metoprolol succinate, will go up on the dose today. No need for chronic anticoagulation at this point as chads score is only 1. Continue DVT prophylaxis dose of Lovenox or another agent of choice. Hypertension: Continue antihypertensive therapy. Will recommend beta-blockers and EZRA inhibitors. Dyslipidemia: Continue statin therapy. Statin therapy does reduce perioperative risk for cardiac events. Obesity: Patient will benefit from weight loss. Sleep disordered breathing: Patient does confirm history of loud snoring. This is suspected being present due to patient oropharyngeal exam, body habitus, comorbid diagnosis of hypertension and now atrial fibrillation. Patient will benefit from a sleep evaluation as an outpatient. 2D echo shows normal LVEF. At this point patient could proceed with surgery tomorrow. - Time Time with patient: Greater than 35 minutes - CODE STATUS was discussed, patient remains full code. Surrogate decision-maker patient's spouse. Multiple medical problems were addressed. More than 50% of the time spent coordinating care, discussing management plans with involved caregivers. Management plans discussed with involved personnels. Medical decision making was of moderate to high complexity, patient's has multiple comorbidities. Medications reviewed and adjusted accordingly: Yes
[2018-02-07] MEDS ORDERED: AMIODARONE HCL 200 MG TABLET PO ONE (13:00)
--- NOTE | 2018-02-07 13:02 | Progress Note ---
Provider Note Provider Note: Date of procedure: February 06, 2018. Procedure report: External cardioversion. Clinical indication: Atrial fibrillation with rapid ventricular response. Description: Patient was noted to have atrial fibrillation with rapid ventricular response. Patient had EKG changes because of rapid ventricular response. Patient also had somewhat of a low blood pressure. It was felt that patient will overall benefit from cardioversion of atrial fibrillation to normal sinus rhythm. Patient was connected to cardioverter defibrillator. Anterior and posterior defibrillator patches were applied. A single 200 J shock synchronized to QRS complex was given to the patient with conversion to sinus rhythm. Patient did also receive IV amiodarone at the same time. Impression: Successful conversion of atrial fibrillation to sinus rhythm.
--- NOTE | 2018-02-07 14:26 | PDOC PROGRESS REPORT ---
Subjective Progress Note for:: 02/07/18 Subjective:: Patient lying in bed complete. Patient states pain is currently manageable. Denies chest pain or shortness of breath status post cardioversion. Reason For Visit: RIGHT DISTAL RADIUS FRACTURE, RIGHT HUMERAL SHAFT Physical Exam Vital Signs: Temp Pulse Resp BP Pulse Ox 99.0 F 90 19 151/88 H 97 02/07/18 11:53 02/07/18 11:53 02/07/18 11:53 02/07/18 11:53 02/07/18 11:53 Intake & Output 02/06/18 02/07/18 02/08/18 06:59 06:59 06:59 Intake Total 2483 1100 472 Output Total 3350 1300 Balance -867 -200 472 Weight 100 kg General appearance: PRESENT: no acute distress, cooperative Musculoskeletal exam: PRESENT: other - RIGHT upper extremity: Splint clean/dry/ intact no erythema or drainage. Intact flexion of the IP/MP joints. No sensory deficits. Weakness with MP joint extension. Weakness with EPL. Results Laboratory Results: 02/07/18 05:04 02/06/18 12:54 02/07/18 05:04 WBC 9.1 RBC 3.16 L Hgb 11.0 L Hct 29.9 L MCV 95 MCH 34.7 H MCHC 36.7 H RDW 12.2 Plt Count 216 Seg Neutrophils % 77.8 Lymphocytes % 9.8 L Monocytes % 10.6 Eosinophils % 1.4 Basophils % 0.4 Absolute Neutrophils 7.1 Absolute Lymphocytes 0.9 Absolute Monocytes 1.0 Absolute Eosinophils 0.1 Absolute Basophils 0.0 02/06/18 02/06/18 12:54 12:54 Creatine Kinase 3969 H CK-MB (CK-2) 0.68 Troponin I < 0.012 Impressions: Cervical Spine CT 02/03/18 00:00 IMPRESSION: MILD DEGENERATIVE CHANGE OF THE CERVICAL SPINE WITHOUT FRACTURE. VASCULAR CALCIFICATIONS. Os Calcis X-ray 02/03/18 00:00 IMPRESSION: SEVERELY COMMINUTED FRACTURE INVOLVING THE ENTIRETY OF THE CALCANEUS WITH EXTENSION INTO THE SUBTALAR JOINT SPACE. ORTHOPEDIC CONSULTATION RECOMMENDED. NO ADDITIONAL FRACTURE IDENTIFIED INVOLVING THE RIGHT OR RIGHT FOOT. Foot X-Ray 02/03/18 18:34 IMPRESSION: SEVERELY COMMINUTED FRACTURE INVOLVING THE ENTIRETY OF THE CALCANEUS WITH EXTENSION INTO THE SUBTALAR JOINT SPACE. ORTHOPEDIC CONSULTATION RECOMMENDED. NO ADDITIONAL FRACTURE IDENTIFIED INVOLVING THE RIGHT OR RIGHT FOOT. Ankle X-Ray 02/03/18 18:55 IMPRESSION: SEVERELY COMMINUTED FRACTURE INVOLVING THE ENTIRETY OF THE CALCANEUS WITH EXTENSION INTO THE SUBTALAR JOINT SPACE. ORTHOPEDIC CONSULTATION RECOMMENDED. NO ADDITIONAL FRACTURE IDENTIFIED INVOLVING THE RIGHT OR RIGHT FOOT. Lumbar Spine X-Ray 02/03/18 18:55 IMPRESSION: MILDLY DISPLACED FRACTURE ANTERIOR SUPERIOR ENDPLATE L2 VERTEBRAL BODY. ADDITIONAL CHRONIC CHANGES ABOVE. Lumbar Spine CT 02/03/18 22:25 IMPRESSION: 1. Mild L2 anterior vertebral fracture. 2. Mild retroperitoneal lymphadenopathy. Lower Extremity CT 02/03/18 22:26 IMPRESSION: Extensively comminuted right calcaneal fracture. Upper Extremity CT 02/03/18 22:26 IMPRESSION: Comminuted intra-articular fracture of the distal right radius. Limitation. Humerus X-Ray 02/04/18 00:00 IMPRESSION: Comminuted fracture between middle and distal 3rd of right humerus. Wrist X-Ray 02/04/18 00:00 IMPRESSION: Status post internal fixation of comminuted distal right radial and radius styloid fracture. Chest X-Ray 02/06/18 00:00 IMPRESSION: 1 low lung volumes limits the examination. NO ACUTE RADIOGRAPHIC FINDING IN THE CHEST. Assessment & Plan - Diagnosis (1) Griffith's fracture of distal radius, closed Qualifiers: Encounter type: initial encounter Laterality: right Qualified Code(s): S52.561A - Griffith's fracture of right radius, initial encounter for closed fracture Is this a current diagnosis for this admission?: Yes Plan: Patient currently progressing appropriately after ORIF humerus/distal radius unfortunately he had a setback secondary to atrial fibrillation with RVR but was successfully cardioverted. At this point I have recommended continuing passive motion of the digits including active assistive range of motion. Plan is to proceed with definitive fixation of the right calcaneus by Dr. Sanchez hopefully within 24 hours. We will continue to monitor. (2) Calcaneal fracture Qualifiers: Encounter type: initial encounter Calcaneus location: body Fracture type : closed Fracture alignment: displaced Laterality: right Qualified Code(s) : S92.011A - Displaced fracture of body of right calcaneus, initial encounter for closed fracture (3) Right humeral fracture Qualifiers: Encounter type: initial encounter Humerus Location: proximal Fracture type: closed Fracture morphology: other fracture Fracture alignment: displaced Qualified Code(s): S42.291A - Other displaced fracture of upper end of right humerus, initial encounter for closed fracture Is this a current diagnosis for this admission?: Yes
[2018-02-07] MEDS: RIVAROXABAN 10 MG TABLET PO SCH (17:45)
[2018-02-07] MEDS: AMIODARONE HCL 200 MG TABLET PO SCH (21:54)
[2018-02-08] MEDS: MORPHINE SULFATE 10 MG/ML INJ IV PRN ×5 (02:36→23:32)
[2018-02-08] MEDS ORDERED: CEFAZOLIN SODIUM 2 GM in NORMAL SALINE 100 ML IV PRN (05:00)
[2018-02-08] MEDS: LANSOPRAZOLE 30 MG TAB.RAP.DR PO SCH (05:46)
--- NOTE | 2018-02-08 09:32 | EKG REPORT ---
SEVERITY:- ABNORMAL ECG - SINUS RHYTHM ABNORMAL T, CONSIDER ISCHEMIA, LATERAL LEADS : Confirmed by: Masood Gonzalez 08-Feb-2018 09:31:31
[2018-02-08] MEDS: AMIODARONE HCL 200 MG TABLET PO SCH ×2 (10:04→21:41)
[2018-02-08] MEDS: METOPROLOL SUCCINATE 25 MG TAB.SR.24H PO SCH ×2 (10:04→21:41)
[2018-02-08] MEDS: LISINOPRIL 10 MG TABLET PO SCH ×2 (10:04→21:41)
[2018-02-08] MEDS ORDERED: PROPOFOL INJ 200 MG/20 ML VIAL IV ONE (10:38)
[2018-02-08] MEDS ORDERED: MIDAZOLAM 2 MG/2 ML INJ ONE (10:38)
[2018-02-08] MEDS ORDERED: FENTANYL CITRATE INJ/PF 100 MCG/2 ML AMPUL ONE (10:38)
[2018-02-08] MEDS ORDERED: TETRACAINE HCL/PF 20MG/2ML AMPULE (SPINAL) ONE (10:43)
[2018-02-08] MEDS: DOCUSATE SODIUM 100 MG CAPSULE PO SCH (10:46)
[2018-02-08] MEDS: PREGABALIN 75 MG CAPSULE PO SCH ×2 (10:46→18:30)
--- NOTE | 2018-02-08 12:21 | Operative Report ---
Operative Report DATE OF SURGERY: 02/08/18 PREOPERATIVE DIAGNOSIS: Right calcaneal fracture POSTOPERATIVE DIAGNOSIS: Same OPERATION: Open reduction internal fixation right calcaneal fracture SURGEON: KATHERYN CONNOR ANESTHESIA: Spinal ESTIMATED BLOOD LOSS: 30cc PROCEDURE: With the patient in a sloppy left lateral decubitus position on the operating table the right lower extremities prepped and draped in sterile fashion. Limb was elevated for exsanguination tourniquet inflated 280 torr. A curvilinear incision was made over the posterior and plantar aspect of the lateral calcaneus. Sharp dissection was carried incision down through the periosteum. The soft tissues elevated proximally and dorsally full-thickness. Pins are placed into the talus to retract the soft tissue envelope. The underlying calcaneal fracture is manually reduced by medially directed pressure. A Schanz pin was placed through the plantar surface of the calcaneus and attempt to distract the fracture and re-create Boehler's angle. The Schanz screw has little purchase in the bone because of the highly comminuted structure of the cancellus bone. Subsequently a Shahid titanium lateral calcaneal plate is applied, size medium. It secured with a combination of cancellus and locked screws. The position of the plate and the fracture reduction are checked radiographically in AP lateral and Howell heel views all suggesting that the fracture reduction and the hardware placement are acceptable. At this point the tourniquet is deflated. The wound is irrigated with bulb lavage. Hemostasis obtained with electrocautery. The wound was then closed using combination of subcutaneous Vicryl and nylon on the skin. A sterile compressive dressing and posterior plaster splint were applied and the patient' s return to the PACU in satisfactory condition.
--- NOTE | 2018-02-08 16:07 | RADIOLOGY REPORT (SQ) ---
EXAM DESCRIPTION: OS CALCIS/HEEL RIGHT; NO CHG FLUORO COMPLETED DATE/TIME: 02/08/2018 2:19 pm REASON FOR STUDY: ORIF RT CALCANEOUS ASST WITH FLUORO IN OR COMPARISON: 02/03/[address] right calcaneus 02/03/2018 FLUOROSCOPY TIME: 0.2 minutes 4 digital radiographic images saved to PACS. TECHNIQUE: Intra-operative images acquired during surgical procedure to evaluate progress. NUMBER OF IMAGES: 4 digital radiographic images LIMITATIONS: None. FINDINGS: Intra procedural imaging and fluoro during ORIF comminuted right calcaneal fracture with p late and multiple screws. IMPRESSION: Intra procedural imaging and fluoro COMMENT: Quality ID [id number]: Final reports for procedures using fluoroscopy that document radiation exp osure indices, or exposure time and number of fluorographic images (if radiation exposure indices are not available) Please consult full operative report of the attending physician for description of the procedure. TECHNICAL DOCUMENTATION: JOB ID: [id number] [employer]- All Rights Reserved Reading location - IP/workstation name: [email or web address]
--- NOTE | 2018-02-08 16:07 | RADIOLOGY REPORT (SQ) ---
EXAM DESCRIPTION: OS CALCIS/HEEL RIGHT; NO CHG FLUORO COMPLETED DATE/TIME: 02/08/2018 2:19 pm REASON FOR STUDY: ORIF RT CALCANEOUS ASST WITH FLUORO IN OR COMPARISON: 02/03/[address] right calcaneus 02/03/2018 FLUOROSCOPY TIME: 0.2 minutes 4 digital radiographic images saved to PACS. TECHNIQUE: Intra-operative images acquired during surgical procedure to evaluate progress. NUMBER OF IMAGES: 4 digital radiographic images LIMITATIONS: None. FINDINGS: Intra procedural imaging and fluoro during ORIF comminuted right calcaneal fracture with p late and multiple screws. IMPRESSION: Intra procedural imaging and fluoro COMMENT: Quality ID [id number]: Final reports for procedures using fluoroscopy that document radiation exp osure indices, or exposure time and number of fluorographic images (if radiation exposure indices are not available) Please consult full operative report of the attending physician for description of the procedure. TECHNICAL DOCUMENTATION: JOB ID: [id number] [employer]- All Rights Reserved Reading location - IP/workstation name: [email or web address]
[2018-02-08] MEDS: RIVAROXABAN 10 MG TABLET PO SCH (16:28)
[2018-02-08] MEDS: OXYCODONE-ACETAMINOPHEN 5-325 MG TABLET PO PRN (18:29)
[2018-02-08] MEDS: CEFAZOLIN SODIUM 2 GM in NORMAL SALINE 100 ML IV SCH (18:30)
[2018-02-09] MEDS: CEFAZOLIN SODIUM 2 GM in NORMAL SALINE 100 ML IV SCH (02:50)
[2018-02-09] MEDS: MORPHINE SULFATE 10 MG/ML INJ IV PRN ×8 (02:50→22:33)
[2018-02-09] MEDS: ACETAMINOPHEN 325 MG TABLET PO PRN (03:21)
[2018-02-09] MEDS: OXYCODONE-ACETAMINOPHEN 5-325 MG TABLET PO PRN ×3 (05:46→18:25)
[2018-02-09] MEDS: LANSOPRAZOLE 30 MG TAB.RAP.DR PO SCH (05:46)
[2018-02-09 05:50] LABS: HEMATOCRIT 28.6 % (37.9-51.0); HEMOGLOBIN 10.2 g/dL (13.5-17.0); MEAN CORPUSCULAR HEMOGLOBIN 34.1 pg (27.0-33.4); MEAN CORPUSCULAR HGB CONC 35.8 g/dL (32.0-36.0); MEAN CORPUSCULAR VOLUME 95 fl (80-97); PLATELET COUNT 271 10^3/uL (150-450); RED CELL DISTRIBUTION WIDTH 11.8 % (11.5-14.0); WHITE BLOOD COUNT 8.6 10^3/uL (4.0-10.5)
[2018-02-09 06:04] LABS: INTERNATIONAL RATION (INR) 1.46; PROTHROMBIN TIME 18.7 SEC (11.4-15.4)
[2018-02-09 06:05] LABS: PARTIAL THROMBOPLASTIN TIME 39.5 SEC (23.5-35.8)
[2018-02-09 06:11] LABS: ANION GAP 8 (5-19); BLOOD UREA NITROGEN 17 mg/dL (7-20); CARBON DIOXIDE 25 mmol/L (22-30); CHLORIDE 101 mmol/L (98-107); GLUCOSE 126 mg/dL (75-110); POTASSIUM 3.9 mmol/L (3.6-5.0); SODIUM 134.3 mmol/L (137-145)
--- NOTE | 2018-02-09 06:37 | PDOC PROGRESS REPORT ---
Subjective Progress Note for:: 02/09/18 Reason For Visit: RIGHT DISTAL RADIUS FRACTURE, RIGHT HUMERAL SHAFT 57-year-old white male status post a fall from a ladder with right upper extremity injuries as well as a right calcaneus fracture. Patient is postop day 1 from open reduction internal fixation of a right calcaneal fracture. Ongoing complaints of pain and tightness in the dressing last night. Physical Exam Vital Signs: Temp Pulse Resp BP Pulse Ox 38.9 C H 95 16 144/78 H 97 02/09/18 03:18 02/09/18 03:18 02/08/18 20:14 02/09/18 03:18 02/09/18 03:18 Intake & Output 02/07/18 02/08/18 02/09/18 06:59 06:59 06:59 Intake Total 5302 121 8425 Output Total 1300 549 6506 Balance -200 272 213 Weight 100 kg 108.3 kg General appearance: PRESENT: mild distress Head exam: PRESENT: normocephalic Respiratory exam: PRESENT: unlabored Cardiovascular exam: PRESENT: RRR Vascular exam: PRESENT: normal capillary refill GI/Abdominal exam: PRESENT: soft Rectal exam: PRESENT: deferred Extremities exam: PRESENT: other - Right lower extremity splint is clean dry and intact. There is brisk capillary refill in the toes. Sensory examination is intact to light touch. Motor function to the great toe flexion extension is intact. Neurological exam: PRESENT: alert, awake, oriented to person, oriented to place , oriented to time, oriented to situation. ABSENT: motor sensory deficit Psychiatric exam: PRESENT: appropriate affect, normal mood. ABSENT: homicidal ideation, suicidal ideation Skin exam: PRESENT: dry, intact, warm. ABSENT: cyanosis, rash Results Laboratory Results: 02/09/18 05:10 02/09/18 05:10 02/09/18 02/09/18 05:10 05:10 WBC 8.6 RBC 3.00 L Hgb 10.2 L Hct 28.6 L MCV 95 MCH 34.1 H MCHC 35.8 RDW 11.8 Plt Count 271 Sodium 134.3 L Potassium 3.9 Chloride 101 Carbon Dioxide 25 Anion Gap 8 BUN 17 Creatinine 0.92 Est GFR ( Amer) > 60 Est GFR (Non-Af Amer) > 60 Glucose 126 H Calcium 8.0 L 02/06/18 02/06/18 12:54 12:54 Creatine Kinase 3969 H CK-MB (CK-2) 0.68 Troponin I < 0.012 Impressions: Cervical Spine CT 02/03/18 00:00 IMPRESSION: MILD DEGENERATIVE CHANGE OF THE CERVICAL SPINE WITHOUT FRACTURE. VASCULAR CALCIFICATIONS. Foot X-Ray 02/03/18 18:34 IMPRESSION: SEVERELY COMMINUTED FRACTURE INVOLVING THE ENTIRETY OF THE CALCANEUS WITH EXTENSION INTO THE SUBTALAR JOINT SPACE. ORTHOPEDIC CONSULTATION RECOMMENDED. NO ADDITIONAL FRACTURE IDENTIFIED INVOLVING THE RIGHT OR RIGHT FOOT. Ankle X-Ray 02/03/18 18:55 IMPRESSION: SEVERELY COMMINUTED FRACTURE INVOLVING THE ENTIRETY OF THE CALCANEUS WITH EXTENSION INTO THE SUBTALAR JOINT SPACE. ORTHOPEDIC CONSULTATION RECOMMENDED. NO ADDITIONAL FRACTURE IDENTIFIED INVOLVING THE RIGHT OR RIGHT FOOT. Lumbar Spine X-Ray 02/03/18 18:55 IMPRESSION: MILDLY DISPLACED FRACTURE ANTERIOR SUPERIOR ENDPLATE L2 VERTEBRAL BODY. ADDITIONAL CHRONIC CHANGES ABOVE. Lumbar Spine CT 02/03/18 22:25 IMPRESSION: 1. Mild L2 anterior vertebral fracture. 2. Mild retroperitoneal lymphadenopathy. Lower Extremity CT 02/03/18 22:26 IMPRESSION: Extensively comminuted right calcaneal fracture. Upper Extremity CT 02/03/18 22:26 IMPRESSION: Comminuted intra-articular fracture of the distal right radius. Limitation. Humerus X-Ray 02/04/18 00:00 IMPRESSION: Comminuted fracture between middle and distal 3rd of right humerus. Wrist X-Ray 02/04/18 00:00 IMPRESSION: Status post internal fixation of comminuted distal right radial and radius styloid fracture. Chest X-Ray 02/06/18 00:00 IMPRESSION: 1 low lung volumes limits the examination. NO ACUTE RADIOGRAPHIC FINDING IN THE CHEST. Fluoroscopy 02/08/18 00:00 IMPRESSION: Intra procedural imaging and fluoro Os Calcis X-ray 02/08/18 00:00 IMPRESSION: Intra procedural imaging and fluoro Assessment & Plan - Diagnosis (1) Calcaneal fracture Qualifiers: Encounter type: initial encounter Calcaneus location: body Fracture type : closed Fracture alignment: displaced Laterality: right Qualified Code(s) : S92.011A - Displaced fracture of body of right calcaneus, initial encounter for closed fracture Is this a current diagnosis for this admission?: Yes Plan: 57-year-old postop day 1 ORIF of right calcaneus fracture. Mobilization is good to be problematic. Dr. silver does not feel that the patient is going to be able to weight-bear on the right upper extremity. I had like to restrict the right lower extremity to a touchdown weightbearing. Physical therapy has been asked to help the patient with transfers from bed to chair. Patient and his are convinced that they would like to go home as opposed to rehab. Time of this will depend on the patient's function. - Time Time Spent with patient: 15-24 minutes Anticipated discharge: Home with Homehealth Within: Other
--- NOTE | 2018-02-09 09:06 | EKG REPORT ---
SEVERITY:- ABNORMAL ECG - SINUS RHYTHM NONSPECIFIC T ABNORMALITIES, ANT-LAT LEADS : Confirmed by: Masood Gonzalez 09-Feb-2018 09:06:10
[2018-02-09] MEDS: LISINOPRIL 10 MG TABLET PO SCH ×2 (10:25→22:38)
[2018-02-09] MEDS: AMIODARONE HCL 200 MG TABLET PO SCH ×2 (10:25→22:38)
[2018-02-09] MEDS: PREGABALIN 75 MG CAPSULE PO SCH ×2 (10:26→17:38)
[2018-02-09] MEDS: DOCUSATE SODIUM 100 MG CAPSULE PO SCH (10:26)
[2018-02-09] MEDS: METOPROLOL SUCCINATE 25 MG TAB.SR.24H PO SCH ×2 (10:26→22:36)
[2018-02-09] MEDS ORDERED: PHENYLEPHRINE HCL INJ/PF 10 MG/1 ML SDV ONE (14:35)
[2018-02-09] MEDS ORDERED: ONDANSETRON HCL INJ/PF 4 MG/2 ML SDV ONE (14:35)
[2018-02-09] MEDS ORDERED: GLYCOPYRROLATE INJ 0.4 MG/2 ML VIAL ONE (14:35)
[2018-02-09] MEDS ORDERED: LIDOCAINE 2% INJ-PF (20 MG/ML) 2 ML AMPUL ONE (14:35)
[2018-02-09] MEDS: RIVAROXABAN 10 MG TABLET PO SCH (17:39)
[2018-02-10] MEDS: MORPHINE SULFATE 10 MG/ML INJ IV PRN ×7 (02:53→20:12)
[2018-02-10] MEDS: LANSOPRAZOLE 30 MG TAB.RAP.DR PO SCH (06:05)
--- NOTE | 2018-02-10 06:42 | PDOC PROGRESS REPORT ---
Subjective Progress Note for:: 02/10/18 Reason For Visit: RIGHT DISTAL RADIUS FRACTURE, RIGHT HUMERAL SHAFT 57-year-old white male postop day 2 status post open reduction internal fixation of a right calcaneal fracture. Patient was out of bed yesterday and pain is better controlled. Physical Exam Vital Signs: Temp Pulse Resp BP Pulse Ox 37.9 C 81 17 115/70 95 02/10/18 03:24 02/10/18 03:24 02/10/18 03:24 02/10/18 03:24 02/10/18 03:24 Intake & Output 02/08/18 02/09/18 02/10/18 06:59 06:59 06:59 Intake Total 872 1838 2355 Output Total 600 1625 1600 Balance 272 213 755 Weight 108.3 kg General appearance: PRESENT: no acute distress Head exam: PRESENT: normocephalic Respiratory exam: PRESENT: unlabored Cardiovascular exam: PRESENT: RRR Pulses: PRESENT: +1 pedal pulses bilateral Vascular exam: PRESENT: normal capillary refill GI/Abdominal exam: PRESENT: soft Rectal exam: PRESENT: deferred Extremities exam: PRESENT: other - Right lower extremity immobilized in posterior plaster splint. There is brisk capillary refill to the great toe with intact flexion extension and sensory examination. Neurological exam: PRESENT: alert, awake, oriented to person, oriented to place , oriented to time, oriented to situation. ABSENT: motor sensory deficit Psychiatric exam: PRESENT: appropriate affect, normal mood. ABSENT: homicidal ideation, suicidal ideation Skin exam: PRESENT: dry, intact, warm. ABSENT: cyanosis, rash Results Laboratory Results: 02/09/18 05:10 02/09/18 05:10 02/06/18 02/06/18 12:54 12:54 Creatine Kinase 3969 H CK-MB (CK-2) 0.68 Troponin I < 0.012 Impressions: Cervical Spine CT 02/03/18 00:00 IMPRESSION: MILD DEGENERATIVE CHANGE OF THE CERVICAL SPINE WITHOUT FRACTURE. VASCULAR CALCIFICATIONS. Foot X-Ray 02/03/18 18:34 IMPRESSION: SEVERELY COMMINUTED FRACTURE INVOLVING THE ENTIRETY OF THE CALCANEUS WITH EXTENSION INTO THE SUBTALAR JOINT SPACE. ORTHOPEDIC CONSULTATION RECOMMENDED. NO ADDITIONAL FRACTURE IDENTIFIED INVOLVING THE RIGHT OR RIGHT FOOT. Ankle X-Ray 02/03/18 18:55 IMPRESSION: SEVERELY COMMINUTED FRACTURE INVOLVING THE ENTIRETY OF THE CALCANEUS WITH EXTENSION INTO THE SUBTALAR JOINT SPACE. ORTHOPEDIC CONSULTATION RECOMMENDED. NO ADDITIONAL FRACTURE IDENTIFIED INVOLVING THE RIGHT OR RIGHT FOOT. Lumbar Spine X-Ray 02/03/18 18:55 IMPRESSION: MILDLY DISPLACED FRACTURE ANTERIOR SUPERIOR ENDPLATE L2 VERTEBRAL BODY. ADDITIONAL CHRONIC CHANGES ABOVE. Lumbar Spine CT 02/03/18 22:25 IMPRESSION: 1. Mild L2 anterior vertebral fracture. 2. Mild retroperitoneal lymphadenopathy. Lower Extremity CT 02/03/18 22:26 IMPRESSION: Extensively comminuted right calcaneal fracture. Upper Extremity CT 02/03/18 22:26 IMPRESSION: Comminuted intra-articular fracture of the distal right radius. Limitation. Humerus X-Ray 02/04/18 00:00 IMPRESSION: Comminuted fracture between middle and distal 3rd of right humerus. Wrist X-Ray 02/04/18 00:00 IMPRESSION: Status post internal fixation of comminuted distal right radial and radius styloid fracture. Chest X-Ray 02/06/18 00:00 IMPRESSION: 1 low lung volumes limits the examination. NO ACUTE RADIOGRAPHIC FINDING IN THE CHEST. Fluoroscopy 02/08/18 00:00 IMPRESSION: Intra procedural imaging and fluoro Os Calcis X-ray 02/08/18 00:00 IMPRESSION: Intra procedural imaging and fluoro Status: Imported from PACS Assessment & Plan - Diagnosis (1) Calcaneal fracture Qualifiers: Encounter type: initial encounter Calcaneus location: body Fracture type : closed Fracture alignment: displaced Laterality: right Qualified Code(s) : S92.011A - Displaced fracture of body of right calcaneus, initial encounter for closed fracture Is this a current diagnosis for this admission?: Yes Plan: Status post open reduction internal fixation right calcaneal fracture now with improved pain control and improving function. Anticipate discharge home when the patient's functional status will permit - Time Time Spent with patient: 15-24 minutes Anticipated discharge: Home with Homehealth Within: when bed available
--- NOTE | 2018-02-10 07:31 | PDOC PROGRESS REPORT ---
Subjective Progress Note for:: 02/10/18 Subjective:: Patient lying in bed complete. Patient states pain is currently manageable and has improved. Was able to get to transfer to a chair yesterday. Denies chest pain or shortness of breath status post cardioversion. Reason For Visit: RIGHT DISTAL RADIUS FRACTURE, RIGHT HUMERAL SHAFT Physical Exam Vital Signs: Temp Pulse Resp BP Pulse Ox 100.3 F 81 17 115/70 95 02/10/18 03:24 02/10/18 03:24 02/10/18 03:24 02/10/18 03:24 02/10/18 03:24 Intake & Output 02/09/18 02/10/18 02/11/18 06:59 06:59 06:59 Intake Total 1838 2355 Output Total 1625 1600 Balance 213 755 Musculoskeletal exam: PRESENT: other - Right upper extremity: Splint clean/dry/ intact no erythema or drainage. Patient is intact flexion of the IP and MP joints. Weakness with EPL extension patient lacks full extension of the MP joints. Intact sensation to light touch. No pain with passive stretch. Cap refill less than 2 seconds. Compartments soft and compressible no sign of compartment syndrome Right lower extremity: Splint clean/dry/intact no erythema or drainage. Intact flexion extension of the toes. Cap refill less than 2 seconds. Mild swelling along the knee joint. No pain with knee range of motion. Left lower extremity: Moderate knee effusion with mild tenderness on the joint line. No gross instability appreciated. No discrete area of tenderness outside. No crepitus with range of motion. Intact straight leg raise. Results Laboratory Results: 02/09/18 05:10 02/09/18 05:10 02/06/18 02/06/18 12:54 12:54 Creatine Kinase 3969 H CK-MB (CK-2) 0.68 Troponin I < 0.012 Impressions: Cervical Spine CT 02/03/18 00:00 IMPRESSION: MILD DEGENERATIVE CHANGE OF THE CERVICAL SPINE WITHOUT FRACTURE. VASCULAR CALCIFICATIONS. Foot X-Ray 02/03/18 18:34 IMPRESSION: SEVERELY COMMINUTED FRACTURE INVOLVING THE ENTIRETY OF THE CALCANEUS WITH EXTENSION INTO THE SUBTALAR JOINT SPACE. ORTHOPEDIC CONSULTATION RECOMMENDED. NO ADDITIONAL FRACTURE IDENTIFIED INVOLVING THE RIGHT OR RIGHT FOOT. Ankle X-Ray 02/03/18 18:55 IMPRESSION: SEVERELY COMMINUTED FRACTURE INVOLVING THE ENTIRETY OF THE CALCANEUS WITH EXTENSION INTO THE SUBTALAR JOINT SPACE. ORTHOPEDIC CONSULTATION RECOMMENDED. NO ADDITIONAL FRACTURE IDENTIFIED INVOLVING THE RIGHT OR RIGHT FOOT. Lumbar Spine X-Ray 02/03/18 18:55 IMPRESSION: MILDLY DISPLACED FRACTURE ANTERIOR SUPERIOR ENDPLATE L2 VERTEBRAL BODY. ADDITIONAL CHRONIC CHANGES ABOVE. Lumbar Spine CT 02/03/18 22:25 IMPRESSION: 1. Mild L2 anterior vertebral fracture. 2. Mild retroperitoneal lymphadenopathy. Lower Extremity CT 02/03/18 22:26 IMPRESSION: Extensively comminuted right calcaneal fracture. Upper Extremity CT 02/03/18 22:26 IMPRESSION: Comminuted intra-articular fracture of the distal right radius. Limitation. Humerus X-Ray 02/04/18 00:00 IMPRESSION: Comminuted fracture between middle and distal 3rd of right humerus. Wrist X-Ray 02/04/18 00:00 IMPRESSION: Status post internal fixation of comminuted distal right radial and radius styloid fracture. Chest X-Ray 02/06/18 00:00 IMPRESSION: 1 low lung volumes limits the examination. NO ACUTE RADIOGRAPHIC FINDING IN THE CHEST. Fluoroscopy 02/08/18 00:00 IMPRESSION: Intra procedural imaging and fluoro Os Calcis X-ray 02/08/18 00:00 IMPRESSION: Intra procedural imaging and fluoro Assessment & Plan - Diagnosis (1) Griffith's fracture of distal radius, closed Qualifiers: Encounter type: initial encounter Laterality: right Qualified Code(s): S52.561A - Griffith's fracture of right radius, initial encounter for closed fracture Is this a current diagnosis for this admission?: Yes (2) Calcaneal fracture Qualifiers: Encounter type: initial encounter Calcaneus location: body Fracture type : closed Fracture alignment: displaced Laterality: right Qualified Code(s) : S92.011A - Displaced fracture of body of right calcaneus, initial encounter for closed fracture Is this a current diagnosis for this admission?: Yes (3) Right humeral fracture Qualifiers: Encounter type: initial encounter Humerus Location: proximal Fracture type: closed Fracture morphology: other fracture Fracture alignment: displaced Qualified Code(s): S42.291A - Other displaced fracture of upper end of right humerus, initial encounter for closed fracture Is this a current diagnosis for this admission?: Yes Plan: Postop day #5 status post ORIF right humeral shaft/distal radius #1 continue occupational therapy maintain nonweightbearing the right upper extremity. I have stressed the importance of passive range of motion. Patient does have evidence of radial nerve palsy will continue to monitor status but stressed the importance of passive motion. #2 Xarelto for DVT prophylaxis #3 continue current pain regimen #4 patient has evidence of bilateral knee pain appears left greater than right. There is the possibility of underlying occult fracture that was not diagnosed initially given patient's polytrauma incident will obtain radiographs of the left knee today. We will continue to monitor. #5 continue TLSO when out of bed for L2 compression fracture #6 touchdown weightbearing right lower extremity as per Dr. Sanchez's protocol #6 discharge planning patient would like to go home but will have to manage maneuvering from the bed to chair independently. Once he has achieved this and his pain is controlled he will be stable for discharge to home. Patient will follow-up the office with me in 10-14 days.
[2018-02-10] MEDS: METOPROLOL SUCCINATE 25 MG TAB.SR.24H PO SCH ×2 (09:11→21:07)
[2018-02-10] MEDS: DOCUSATE SODIUM 100 MG CAPSULE PO SCH (09:13)
[2018-02-10] MEDS: AMIODARONE HCL 200 MG TABLET PO SCH ×2 (09:13→21:06)
[2018-02-10] MEDS: OXYCODONE-ACETAMINOPHEN 5-325 MG TABLET PO PRN ×2 (09:13→16:54)
[2018-02-10] MEDS: PREGABALIN 75 MG CAPSULE PO SCH ×2 (09:14→16:54)
[2018-02-10] MEDS: LISINOPRIL 10 MG TABLET PO SCH ×2 (09:14→20:11)
--- NOTE | 2018-02-10 10:14 | RADIOLOGY REPORT (SQ) ---
EXAM DESCRIPTION: KNEE LEFT 2 VIEWS COMPLETED DATE/TIME: 02/10/2018 10:04 am REASON FOR STUDY: Left Knee Effusion COMPARISON: None. NUMBER OF VIEWS: Two views TECHNIQUE: AP and lateral radiographic images acquired of the left knee. LIMITATIONS: None. FINDINGS: MINERALIZATION: Normal. BONES: No acute fracture or dislocation. No worrisome bone lesions. JOINT: There is soft tissue fullness at the level of the suprapatellar pouch and the possibility of a joint effusion should be considered. SOFT TISSUES: No soft tissue swelling. No radio-opaque foreign body. OTHER: No other significant finding. IMPRESSION: Soft tissue fullness at the level of the suprapatellar pouch and the possibility of a david int effusion should be considered. Other findings as noted above TECHNICAL DOCUMENTATION: JOB ID: [id number]- All Rights Reserved Reading location - IP/workstation name: [email or web address]
[2018-02-10] MEDS: RIVAROXABAN 10 MG TABLET PO SCH (16:55)
[2018-02-11] MEDS: MORPHINE SULFATE 10 MG/ML INJ IV PRN ×7 (00:33→15:55)
[2018-02-11] MEDS: LANSOPRAZOLE 30 MG TAB.RAP.DR PO SCH (05:35)
--- NOTE | 2018-02-11 07:40 | PDOC PROGRESS REPORT ---
Subjective Progress Note for:: 02/11/18 Reason For Visit: RIGHT DISTAL RADIUS FRACTURE, RIGHT HUMERAL SHAFT 57-year-old white male status post a fall with open reduction and internal fixation of right upper and right lower extremity fractures Physical Exam Vital Signs: Temp Pulse Resp BP Pulse Ox 37.6 C 83 16 123/70 97 02/11/18 03:26 02/11/18 06:51 02/11/18 03:26 02/11/18 03:26 02/11/18 03:26 Intake & Output 02/10/18 02/11/18 02/12/18 06:59 06:59 06:59 Intake Total 2355 1874 Output Total 1600 1850 Balance 755 24 Weight 108.3 kg General appearance: PRESENT: no acute distress Head exam: PRESENT: normocephalic Respiratory exam: PRESENT: unlabored Cardiovascular exam: PRESENT: RRR Pulses: PRESENT: +1 pedal pulses bilateral Vascular exam: PRESENT: normal capillary refill GI/Abdominal exam: PRESENT: soft Rectal exam: PRESENT: deferred Extremities exam: PRESENT: other - knee with low-grade effusion. Right lower extremity dressing clean dry and intact. Neurological exam: PRESENT: alert, awake, oriented to person, oriented to place , oriented to time, oriented to situation. ABSENT: motor sensory deficit Skin exam: PRESENT: dry, intact, warm. ABSENT: cyanosis, rash Results Laboratory Results: 02/09/18 05:10 02/09/18 05:10 02/06/18 02/06/18 12:54 12:54 Creatine Kinase 3969 H CK-MB (CK-2) 0.68 Troponin I < 0.012 Impressions: Cervical Spine CT 02/03/18 00:00 IMPRESSION: MILD DEGENERATIVE CHANGE OF THE CERVICAL SPINE WITHOUT FRACTURE. VASCULAR CALCIFICATIONS. Foot X-Ray 02/03/18 18:34 IMPRESSION: SEVERELY COMMINUTED FRACTURE INVOLVING THE ENTIRETY OF THE CALCANEUS WITH EXTENSION INTO THE SUBTALAR JOINT SPACE. ORTHOPEDIC CONSULTATION RECOMMENDED. NO ADDITIONAL FRACTURE IDENTIFIED INVOLVING THE RIGHT OR RIGHT FOOT. Ankle X-Ray 02/03/18 18:55 IMPRESSION: SEVERELY COMMINUTED FRACTURE INVOLVING THE ENTIRETY OF THE CALCANEUS WITH EXTENSION INTO THE SUBTALAR JOINT SPACE. ORTHOPEDIC CONSULTATION RECOMMENDED. NO ADDITIONAL FRACTURE IDENTIFIED INVOLVING THE RIGHT OR RIGHT FOOT. Lumbar Spine X-Ray 02/03/18 18:55 IMPRESSION: MILDLY DISPLACED FRACTURE ANTERIOR SUPERIOR ENDPLATE L2 VERTEBRAL BODY. ADDITIONAL CHRONIC CHANGES ABOVE. Lumbar Spine CT 02/03/18 22:25 IMPRESSION: 1. Mild L2 anterior vertebral fracture. 2. Mild retroperitoneal lymphadenopathy. Lower Extremity CT 02/03/18 22:26 IMPRESSION: Extensively comminuted right calcaneal fracture. Upper Extremity CT 02/03/18 22:26 IMPRESSION: Comminuted intra-articular fracture of the distal right radius. Limitation. Humerus X-Ray 02/04/18 00:00 IMPRESSION: Comminuted fracture between middle and distal 3rd of right humerus. Wrist X-Ray 02/04/18 00:00 IMPRESSION: Status post internal fixation of comminuted distal right radial and radius styloid fracture. Chest X-Ray 02/06/18 00:00 IMPRESSION: 1 low lung volumes limits the examination. NO ACUTE RADIOGRAPHIC FINDING IN THE CHEST. Fluoroscopy 02/08/18 00:00 IMPRESSION: Intra procedural imaging and fluoro Os Calcis X-ray 02/08/18 00:00 IMPRESSION: Intra procedural imaging and fluoro Knee X-Ray 02/10/18 00:00 IMPRESSION: Soft tissue fullness at the level of the suprapatellar pouch and the possibility of a joint effusion should be considered. Other findings as noted above Status: Imported from PACS Assessment & Plan - Diagnosis (1) Calcaneal fracture Qualifiers: Encounter type: initial encounter Calcaneus location: body Fracture type : closed Fracture alignment: displaced Laterality: right Qualified Code(s) : S92.011A - Displaced fracture of body of right calcaneus, initial encounter for closed fracture Is this a current diagnosis for this admission?: Yes Plan: Patient making limited progress with physical therapy. Knee x-rays notable only for effusion. Plan for discharge home with home health services on Tuesday. - Time Time Spent with patient: 15-24 minutes Anticipated discharge: Home with Homehealth Within: within 48 hours
[2018-02-11] MEDS: DOCUSATE SODIUM 100 MG CAPSULE PO SCH (09:17)
[2018-02-11] MEDS: METOPROLOL SUCCINATE 25 MG TAB.SR.24H PO SCH ×2 (09:17→22:03)
[2018-02-11] MEDS: LISINOPRIL 10 MG TABLET PO SCH ×2 (09:18→22:03)
[2018-02-11] MEDS: PREGABALIN 75 MG CAPSULE PO SCH ×2 (09:18→17:28)
[2018-02-11] MEDS: AMIODARONE HCL 200 MG TABLET PO SCH ×2 (09:18→22:03)
[2018-02-11] MEDS: OXYCODONE-ACETAMINOPHEN 5-325 MG TABLET PO PRN ×2 (10:38→19:31)
[2018-02-11] MEDS: RIVAROXABAN 10 MG TABLET PO SCH (17:28)
[2018-02-11] MEDS: IBUPROFEN 800 MG in NORMAL SALINE 250 ML IV SCH (22:19)
[2018-02-12] MEDS: MORPHINE SULFATE 10 MG/ML INJ IV PRN ×7 (01:34→21:35)
[2018-02-12] MEDS: LANSOPRAZOLE 30 MG TAB.RAP.DR PO SCH (06:08)
[2018-02-12] MEDS: IBUPROFEN 800 MG in NORMAL SALINE 250 ML IV SCH (06:12)
--- NOTE | 2018-02-12 08:01 | PDOC PROGRESS REPORT ---
Subjective Progress Note for:: 02/12/18 Reason For Visit: RIGHT DISTAL RADIUS FRACTURE, RIGHT HUMERAL SHAFT 57-year-old white male status post open reduction internal fixation of right upper and right lower extremity fractures. Patient now complaining of left knee pain which is limiting his function. X-rays have been negative. Intra- venous ibuprofen prescribed but not administered because the pharmacy is not available Physical Exam Vital Signs: Temp Pulse Resp BP Pulse Ox 36.9 C 80 18 125/73 98 02/12/18 00:01 02/12/18 07:00 02/12/18 00:01 02/12/18 00:01 02/12/18 00:01 Intake & Output 02/11/18 02/12/18 02/13/18 06:59 06:59 06:59 Intake Total 1874 3424 Output Total 1850 2900 Balance 24 524 Weight 108.3 kg 104.4 kg General appearance: PRESENT: mild distress Head exam: PRESENT: normocephalic Respiratory exam: PRESENT: unlabored Cardiovascular exam: PRESENT: RRR Pulses: PRESENT: +1 pedal pulses bilateral Vascular exam: PRESENT: normal capillary refill GI/Abdominal exam: PRESENT: soft Rectal exam: PRESENT: deferred Extremities exam: PRESENT: other - Right upper and right lower extremities dressings clean dry and intact. Left knee with modest effusion, no ecchymosis, mildly limited range of motion and no ligamentous instability. Distal neurovascular examination is intact. Neurological exam: PRESENT: alert, awake, oriented to person, oriented to place , oriented to time, oriented to situation. ABSENT: motor sensory deficit Psychiatric exam: PRESENT: appropriate affect, normal mood. ABSENT: homicidal ideation, suicidal ideation Skin exam: PRESENT: dry, intact, warm. ABSENT: cyanosis, rash Results Laboratory Results: 02/09/18 05:10 02/09/18 05:10 02/06/18 09:40 Blood Blood Culture - Final NO GROWTH IN 5 DAYS 02/06/18 09:13 Blood Blood Culture - Final NO GROWTH IN 5 DAYS 02/06/18 02/06/18 12:54 12:54 Creatine Kinase 3969 H CK-MB (CK-2) 0.68 Troponin I < 0.012 Impressions: Cervical Spine CT 02/03/18 00:00 IMPRESSION: MILD DEGENERATIVE CHANGE OF THE CERVICAL SPINE WITHOUT FRACTURE. VASCULAR CALCIFICATIONS. Foot X-Ray 02/03/18 18:34 IMPRESSION: SEVERELY COMMINUTED FRACTURE INVOLVING THE ENTIRETY OF THE CALCANEUS WITH EXTENSION INTO THE SUBTALAR JOINT SPACE. ORTHOPEDIC CONSULTATION RECOMMENDED. NO ADDITIONAL FRACTURE IDENTIFIED INVOLVING THE RIGHT OR RIGHT FOOT. Ankle X-Ray 02/03/18 18:55 IMPRESSION: SEVERELY COMMINUTED FRACTURE INVOLVING THE ENTIRETY OF THE CALCANEUS WITH EXTENSION INTO THE SUBTALAR JOINT SPACE. ORTHOPEDIC CONSULTATION RECOMMENDED. NO ADDITIONAL FRACTURE IDENTIFIED INVOLVING THE RIGHT OR RIGHT FOOT. Lumbar Spine X-Ray 02/03/18 18:55 IMPRESSION: MILDLY DISPLACED FRACTURE ANTERIOR SUPERIOR ENDPLATE L2 VERTEBRAL BODY. ADDITIONAL CHRONIC CHANGES ABOVE. Lumbar Spine CT 02/03/18 22:25 IMPRESSION: 1. Mild L2 anterior vertebral fracture. 2. Mild retroperitoneal lymphadenopathy. Lower Extremity CT 02/03/18 22:26 IMPRESSION: Extensively comminuted right calcaneal fracture. Upper Extremity CT 02/03/18 22:26 IMPRESSION: Comminuted intra-articular fracture of the distal right radius. Limitation. Humerus X-Ray 02/04/18 00:00 IMPRESSION: Comminuted fracture between middle and distal 3rd of right humerus. Wrist X-Ray 02/04/18 00:00 IMPRESSION: Status post internal fixation of comminuted distal right radial and radius styloid fracture. Chest X-Ray 02/06/18 00:00 IMPRESSION: 1 low lung volumes limits the examination. NO ACUTE RADIOGRAPHIC FINDING IN THE CHEST. Fluoroscopy 02/08/18 00:00 IMPRESSION: Intra procedural imaging and fluoro Os Calcis X-ray 02/08/18 00:00 IMPRESSION: Intra procedural imaging and fluoro Knee X-Ray 02/10/18 00:00 IMPRESSION: Soft tissue fullness at the level of the suprapatellar pouch and the possibility of a joint effusion should be considered. Other findings as noted above Status: Imported from PACS Assessment & Plan - Diagnosis (1) Calcaneal fracture Qualifiers: Encounter type: initial encounter Calcaneus location: body Fracture type : closed Fracture alignment: displaced Laterality: right Qualified Code(s) : S92.011A - Displaced fracture of body of right calcaneus, initial encounter for closed fracture Is this a current diagnosis for this admission?: Yes Plan: Postop day 4 status post right calcaneal ORIF. Postoperative rehabilitation is now limited by left knee pain and effusion. (2) Knee effusion, left Is this a current diagnosis for this admission?: Yes Plan: X-rays are negative. Anti-inflammatory medication prescribed. Potential for MRI scan tomorrow? - Time Time Spent with patient: 15-24 minutes Anticipated discharge: SNF Within: Other - Patient and have discussed the situation and have changed their mind about discharge planning. There are interested in correction facility placement. Discharge planning has been consulted for such.
[2018-02-12] MEDS: OXYCODONE-ACETAMINOPHEN 5-325 MG TABLET PO PRN ×3 (08:06→23:01)
[2018-02-12] MEDS: DOCUSATE SODIUM 100 MG CAPSULE PO SCH (09:41)
[2018-02-12] MEDS: AMIODARONE HCL 200 MG TABLET PO SCH ×2 (09:41→23:01)
[2018-02-12] MEDS: METOPROLOL SUCCINATE 25 MG TAB.SR.24H PO SCH ×2 (09:42→23:01)
[2018-02-12] MEDS: IBUPROFEN 800 MG in DEXTROSE 5%-WATER 250 ML IV SCH ×2 (09:42→17:36)
[2018-02-12] MEDS: PREGABALIN 75 MG CAPSULE PO SCH ×2 (09:42→17:37)
[2018-02-12] MEDS: LISINOPRIL 10 MG TABLET PO SCH ×2 (09:42→21:35)
[2018-02-12] MEDS ORDERED: IBUPROFEN 800 MG TABLET PO SCH (10:00)
[2018-02-12] MEDS: RIVAROXABAN 10 MG TABLET PO SCH (17:37)
[2018-02-13] MEDS: IBUPROFEN 800 MG in DEXTROSE 5%-WATER 250 ML IV SCH ×3 (02:55→17:35)
[2018-02-13] MEDS: LANSOPRAZOLE 30 MG TAB.RAP.DR PO SCH (06:24)
--- NOTE | 2018-02-13 06:42 | PDOC PROGRESS REPORT ---
Subjective Progress Note for:: 02/13/18 Reason For Visit: RIGHT DISTAL RADIUS FRACTURE, RIGHT HUMERAL SHAFT 57-year-old white male status post a fall with multiple musculoskeletal injuries and now persistent left knee pain and effusion limiting his ability to participate in physical therapy. Physical Exam Vital Signs: Temp Pulse Resp BP Pulse Ox 36.8 C 71 18 115/69 97 02/13/18 03:03 02/13/18 03:03 02/13/18 03:03 02/13/18 03:03 02/13/18 03:03 Intake & Output 02/11/18 02/12/18 02/13/18 06:59 06:59 06:59 Intake Total 1874 3424 4401 Output Total 1850 2900 4500 Balance 24 524 -99 Weight 108.3 kg 104.4 kg General appearance: PRESENT: no acute distress Head exam: PRESENT: normocephalic Respiratory exam: PRESENT: unlabored Cardiovascular exam: PRESENT: RRR Pulses: PRESENT: +1 pedal pulses bilateral Vascular exam: PRESENT: normal capillary refill GI/Abdominal exam: PRESENT: soft Rectal exam: PRESENT: deferred Extremities exam: PRESENT: other - Right upper and right lower extremity dressings clean dry and intact. Left knee has a persistent effusion with discomfort at both extremes. There is no ligamentous instability that I can discern. There is no skin abnormalities. There is global tenderness to palpation. Neurological exam: PRESENT: alert, awake, oriented to person, oriented to place , oriented to time, oriented to situation. ABSENT: motor sensory deficit Psychiatric exam: PRESENT: appropriate affect, normal mood. ABSENT: homicidal ideation, suicidal ideation Skin exam: PRESENT: dry, intact, warm. ABSENT: cyanosis, rash Results Laboratory Results: 02/09/18 05:10 02/09/18 05:10 02/06/18 02/06/18 12:54 12:54 Creatine Kinase 3969 H CK-MB (CK-2) 0.68 Troponin I < 0.012 Impressions: Cervical Spine CT 02/03/18 00:00 IMPRESSION: MILD DEGENERATIVE CHANGE OF THE CERVICAL SPINE WITHOUT FRACTURE. VASCULAR CALCIFICATIONS. Foot X-Ray 02/03/18 18:34 IMPRESSION: SEVERELY COMMINUTED FRACTURE INVOLVING THE ENTIRETY OF THE CALCANEUS WITH EXTENSION INTO THE SUBTALAR JOINT SPACE. ORTHOPEDIC CONSULTATION RECOMMENDED. NO ADDITIONAL FRACTURE IDENTIFIED INVOLVING THE RIGHT OR RIGHT FOOT. Ankle X-Ray 02/03/18 18:55 IMPRESSION: SEVERELY COMMINUTED FRACTURE INVOLVING THE ENTIRETY OF THE CALCANEUS WITH EXTENSION INTO THE SUBTALAR JOINT SPACE. ORTHOPEDIC CONSULTATION RECOMMENDED. NO ADDITIONAL FRACTURE IDENTIFIED INVOLVING THE RIGHT OR RIGHT FOOT. Lumbar Spine X-Ray 02/03/18 18:55 IMPRESSION: MILDLY DISPLACED FRACTURE ANTERIOR SUPERIOR ENDPLATE L2 VERTEBRAL BODY. ADDITIONAL CHRONIC CHANGES ABOVE. Lumbar Spine CT 02/03/18 22:25 IMPRESSION: 1. Mild L2 anterior vertebral fracture. 2. Mild retroperitoneal lymphadenopathy. Lower Extremity CT 02/03/18 22:26 IMPRESSION: Extensively comminuted right calcaneal fracture. Upper Extremity CT 02/03/18 22:26 IMPRESSION: Comminuted intra-articular fracture of the distal right radius. Limitation. Humerus X-Ray 02/04/18 00:00 IMPRESSION: Comminuted fracture between middle and distal 3rd of right humerus. Wrist X-Ray 02/04/18 00:00 IMPRESSION: Status post internal fixation of comminuted distal right radial and radius styloid fracture. Chest X-Ray 02/06/18 00:00 IMPRESSION: 1 low lung volumes limits the examination. NO ACUTE RADIOGRAPHIC FINDING IN THE CHEST. Fluoroscopy 02/08/18 00:00 IMPRESSION: Intra procedural imaging and fluoro Os Calcis X-ray 02/08/18 00:00 IMPRESSION: Intra procedural imaging and fluoro Knee X-Ray 02/10/18 00:00 IMPRESSION: Soft tissue fullness at the level of the suprapatellar pouch and the possibility of a joint effusion should be considered. Other findings as noted above Status: Imported from PACS Assessment & Plan - Diagnosis (1) Calcaneal fracture Qualifiers: Encounter type: initial encounter Calcaneus location: body Fracture type : closed Fracture alignment: displaced Laterality: right Qualified Code(s) : S92.011A - Displaced fracture of body of right calcaneus, initial encounter for closed fracture Is this a current diagnosis for this admission?: Yes (2) Knee effusion, left Is this a current diagnosis for this admission?: Yes Plan: Patient with persistent effusion and functional disability secondary to presumed left knee trauma. X-rays are negative. Patient has not responded to anti-inflammatory medication. MRI scan has been ordered. - Time Time Spent with patient: 15-24 minutes Anticipated discharge: SNF Within: when bed available
[2018-02-13] MEDS: MORPHINE SULFATE 10 MG/ML INJ IV PRN ×8 (07:32→23:45)
[2018-02-13] MEDS: OXYCODONE-ACETAMINOPHEN 5-325 MG TABLET PO PRN ×3 (08:59→22:35)
[2018-02-13] MEDS: AMIODARONE HCL 200 MG TABLET PO SCH ×2 (10:43→21:34)
[2018-02-13] MEDS: LISINOPRIL 10 MG TABLET PO SCH ×2 (10:43→21:34)
[2018-02-13] MEDS: DOCUSATE SODIUM 100 MG CAPSULE PO SCH (10:46)
[2018-02-13] MEDS: PREGABALIN 75 MG CAPSULE PO SCH ×2 (10:46→17:31)
[2018-02-13] MEDS: METOPROLOL SUCCINATE 25 MG TAB.SR.24H PO SCH ×2 (10:46→21:33)
--- NOTE | 2018-02-13 11:22 | RADIOLOGY REPORT (SQ) ---
EXAM DESCRIPTION: MRI LT LOWER JOINT WITHOUT COMPLETED DATE/TIME: 02/13/2018 9:54 am REASON FOR STUDY: evaluate effusion COMPARISON: Left knee two views 02/10/2018 TECHNIQUE: Leftknee images acquired and stored on PACS. Multiplanar images include fat sensitive se quences as T1, water sensitive sequences as FST2 or STIR, cartilage sensitive sequences as FSPD, and gradient echo sequences. LIMITATIONS: None. FINDINGS: JOINT AND BURSAE: Moderate size suprapatellar knee joint effusion BONE CORTEX AND MARROW: An incomplete nondisplaced hairline fractures present through the lateral fem oral condyle extending to the articular surface. There is a 1.6 cm osteochondral fracture along the weight-bearing surface lateral femoral condyle without articular surface depression. These findings are best shown on axial images 4-12 and sagittal images 17-20. There is a nondisplaced nondepressed posterior edge lateral tibial plateau fracture extending down to the proximal tibiofibular joint. A nondisplaced proximal fibular hairline fractures present. These findings are best shown on coronal image 21 and sagittal images 19-22. ACL: Torn, best shown on sagittal image 14. PCL: Intact. MCL: Intact. No periligamentous edema or fluid. LCL: Intact. No periligamentous edema or fluid. MEDIAL MENISCUS: Horizontal tear throughout the mid body and posterior horn medial meniscus LATERAL MENISCUS: No tears. No abnormal signal. MEDIAL COMPARTMENT: Very mild chondromalacia. No bone bruises or reactive marrow edema. No osteophyte s. LATERAL COMPARTMENT: Osteochondral fracture weight-bearing surface lateral femoral condyle. PATELLA: No chondromalacia. No subchondral cysts. Medial and lateral retinacula intact. EXTENSOR MECHANISM: Quadriceps tendon is intact. There is high signal along the proximal attachment of the patellar tendon to the patella. Partial thickness tear versus tendinopathy. This is best medina wn on axial images 10-15, and coronal image 8. SOFT TISSUES: Edema, thickening and partial thickness tear, proximal attachment medial head gastrocne mius muscle with subcortical cyst at proximal attachment, best shown on sagittal image 7 OTHER: No other significant finding. IMPRESSION: Fractures as above Torn anterior cruciate ligament and medial meniscus Tendinopathy with superimposed acute partial thickness tear of the proximal attachment, medial head g astrocnemius muscle TECHNICAL DOCUMENTATION: JOB ID: [id number]- All Rights Reserved Reading location - IP/workstation name: [email or web address]
[2018-02-13] MEDS ORDERED: MAGNESIUM CITRATE 296 ML BOTTLE PO PRN (15:44)
[2018-02-13] MEDS ORDERED: SENNOSIDES/DOCUSATE 8.6-50 MG 1 EACH TABLET PO ONE (17:00)
[2018-02-13] MEDS: RIVAROXABAN 10 MG TABLET PO SCH (17:30)
[2018-02-14] MEDS: IBUPROFEN 800 MG in DEXTROSE 5%-WATER 250 ML IV SCH (02:08)
[2018-02-14] MEDS: MORPHINE SULFATE 10 MG/ML INJ IV PRN ×9 (02:08→23:51)
[2018-02-14] MEDS: LANSOPRAZOLE 30 MG TAB.RAP.DR PO SCH (06:14)
[2018-02-14] MEDS: OXYCODONE-ACETAMINOPHEN 5-325 MG TABLET PO PRN ×3 (06:16→21:04)
--- NOTE | 2018-02-14 07:29 | PDOC PROGRESS REPORT ---
Subjective Progress Note for:: 02/14/18 Reason For Visit: RIGHT DISTAL RADIUS FRACTURE, RIGHT HUMERAL SHAFT Patient status post MRI scan of left knee yesterday demonstrate meniscal tear and ACL tear. He is now complaining of right knee pain. Physical Exam Vital Signs: Temp Pulse Resp BP Pulse Ox 36.6 C 73 16 119/74 100 02/13/18 15:57 02/14/18 02:00 02/13/18 15:57 02/13/18 15:57 02/13/18 15:57 Intake & Output 02/13/18 02/14/18 02/15/18 06:59 06:59 06:59 Intake Total 4401 1317 Output Total 4500 2100 Balance -99 -783 Weight 107.1 kg General appearance: PRESENT: no acute distress Head exam: PRESENT: normocephalic Respiratory exam: PRESENT: unlabored Cardiovascular exam: PRESENT: RRR Vascular exam: PRESENT: normal capillary refill GI/Abdominal exam: PRESENT: soft Rectal exam: PRESENT: deferred Extremities exam: PRESENT: other - Right upper extremity dressing intact but a Eduin wrap was loose. Right lower extremity dressing is intact with brisk capillary refill. Effusion of the left knee seems to be decreased today but global tenderness persists. The patient is now complaining of right knee pain which seems to be primarily patellar or patellofemoral in nature. Neurological exam: PRESENT: alert, awake, oriented to person, oriented to place , oriented to time, oriented to situation. ABSENT: motor sensory deficit Psychiatric exam: PRESENT: appropriate affect, normal mood. ABSENT: homicidal ideation, suicidal ideation Skin exam: PRESENT: dry, intact, warm. ABSENT: cyanosis, rash Results Laboratory Results: 02/09/18 05:10 02/09/18 05:10 02/06/18 02/06/18 12:54 12:54 Creatine Kinase 3969 H CK-MB (CK-2) 0.68 Troponin I < 0.012 Impressions: Cervical Spine CT 02/03/18 00:00 IMPRESSION: MILD DEGENERATIVE CHANGE OF THE CERVICAL SPINE WITHOUT FRACTURE. VASCULAR CALCIFICATIONS. Foot X-Ray 02/03/18 18:34 IMPRESSION: SEVERELY COMMINUTED FRACTURE INVOLVING THE ENTIRETY OF THE CALCANEUS WITH EXTENSION INTO THE SUBTALAR JOINT SPACE. ORTHOPEDIC CONSULTATION RECOMMENDED. NO ADDITIONAL FRACTURE IDENTIFIED INVOLVING THE RIGHT OR RIGHT FOOT. Ankle X-Ray 02/03/18 18:55 IMPRESSION: SEVERELY COMMINUTED FRACTURE INVOLVING THE ENTIRETY OF THE CALCANEUS WITH EXTENSION INTO THE SUBTALAR JOINT SPACE. ORTHOPEDIC CONSULTATION RECOMMENDED. NO ADDITIONAL FRACTURE IDENTIFIED INVOLVING THE RIGHT OR RIGHT FOOT. Lumbar Spine X-Ray 02/03/18 18:55 IMPRESSION: MILDLY DISPLACED FRACTURE ANTERIOR SUPERIOR ENDPLATE L2 VERTEBRAL BODY. ADDITIONAL CHRONIC CHANGES ABOVE. Lumbar Spine CT 02/03/18 22:25 IMPRESSION: 1. Mild L2 anterior vertebral fracture. 2. Mild retroperitoneal lymphadenopathy. Lower Extremity CT 02/03/18 22:26 IMPRESSION: Extensively comminuted right calcaneal fracture. Upper Extremity CT 02/03/18 22:26 IMPRESSION: Comminuted intra-articular fracture of the distal right radius. Limitation. Humerus X-Ray 02/04/18 00:00 IMPRESSION: Comminuted fracture between middle and distal 3rd of right humerus. Wrist X-Ray 02/04/18 00:00 IMPRESSION: Status post internal fixation of comminuted distal right radial and radius styloid fracture. Chest X-Ray 02/06/18 00:00 IMPRESSION: 1 low lung volumes limits the examination. NO ACUTE RADIOGRAPHIC FINDING IN THE CHEST. Fluoroscopy 02/08/18 00:00 IMPRESSION: Intra procedural imaging and fluoro Os Calcis X-ray 02/08/18 00:00 IMPRESSION: Intra procedural imaging and fluoro Knee X-Ray 02/10/18 00:00 IMPRESSION: Soft tissue fullness at the level of the suprapatellar pouch and the possibility of a joint effusion should be considered. Other findings as noted above Lower Extremity MRI 02/13/18 06:38 IMPRESSION: Fractures as above Torn anterior cruciate ligament and medial meniscus Tendinopathy with superimposed acute partial thickness tear of the proximal attachment, medial head gastrocnemius muscle Status: Imported from PACS Assessment & Plan - Diagnosis (1) Calcaneal fracture Qualifiers: Encounter type: initial encounter Calcaneus location: body Fracture type : closed Fracture alignment: displaced Laterality: right Qualified Code(s) : S92.011A - Displaced fracture of body of right calcaneus, initial encounter for closed fracture Is this a current diagnosis for this admission?: Yes Plan: 57-year-old white male postop day 6 status post open reduction internal fixation right calcaneus fracture. Patient maintain a touchdown weightbearing restriction. (2) Knee effusion, left Is this a current diagnosis for this admission?: Yes (3) ACL injury tear Is this a current diagnosis for this admission?: Yes Plan: We will treat conservatively with mobilization and rehabilitation (4) Meniscal injury Is this a current diagnosis for this admission?: Yes Plan: We will treat conservatively with mobilization and rehabilitation (5) Right anterior knee pain Is this a current diagnosis for this admission?: Yes Plan: An MRI scan has been ordered to evaluate his right knee pain. - Time Time Spent with patient: 15-24 minutes Anticipated discharge: SNF Within: when bed available
[2018-02-14] MEDS: LISINOPRIL 10 MG TABLET PO SCH ×2 (08:18→21:04)
--- NOTE | 2018-02-14 08:59 | PDOC PROGRESS REPORT ---
Subjective Progress Note for:: 02/14/18 Subjective:: Patient lying in bed complete. Patient states pain is currently manageable. Continues transfers w/ PT. continues to have the left knee pain. MRI was done demonstrating ACL tear. Reason For Visit: RIGHT DISTAL RADIUS FRACTURE, RIGHT HUMERAL SHAFT Physical Exam Vital Signs: Temp Pulse Resp BP Pulse Ox 98.1 F 74 18 135/84 H 99 02/14/18 07:21 02/14/18 07:21 02/14/18 07:21 02/14/18 07:21 02/14/18 07:21 Intake & Output 02/13/18 02/14/18 02/15/18 06:59 06:59 06:59 Intake Total 4401 1577 Output Total 4500 2100 Balance -99 -523 Weight 107.1 kg Musculoskeletal exam: PRESENT: other - Right upper extremity: Dressing and splint removed today. Incisions clean/dry/intact no erythema or drainage. Patient continues to lack MP joint extension and EPL. FPL, IP/MP joint flexion intact. Patient lacks extension of the no evidence of ECRB/ECRL extension currently. Patient able make full composite fist. Intact sensation to light touch throughout the median ulnar nerve distribution. Results Laboratory Results: 02/09/18 05:10 02/09/18 05:10 02/06/18 02/06/18 12:54 12:54 Creatine Kinase 3969 H CK-MB (CK-2) 0.68 Troponin I < 0.012 Impressions: Cervical Spine CT 02/03/18 00:00 IMPRESSION: MILD DEGENERATIVE CHANGE OF THE CERVICAL SPINE WITHOUT FRACTURE. VASCULAR CALCIFICATIONS. Foot X-Ray 02/03/18 18:34 IMPRESSION: SEVERELY COMMINUTED FRACTURE INVOLVING THE ENTIRETY OF THE CALCANEUS WITH EXTENSION INTO THE SUBTALAR JOINT SPACE. ORTHOPEDIC CONSULTATION RECOMMENDED. NO ADDITIONAL FRACTURE IDENTIFIED INVOLVING THE RIGHT OR RIGHT FOOT. Ankle X-Ray 02/03/18 18:55 IMPRESSION: SEVERELY COMMINUTED FRACTURE INVOLVING THE ENTIRETY OF THE CALCANEUS WITH EXTENSION INTO THE SUBTALAR JOINT SPACE. ORTHOPEDIC CONSULTATION RECOMMENDED. NO ADDITIONAL FRACTURE IDENTIFIED INVOLVING THE RIGHT OR RIGHT FOOT. Lumbar Spine X-Ray 02/03/18 18:55 IMPRESSION: MILDLY DISPLACED FRACTURE ANTERIOR SUPERIOR ENDPLATE L2 VERTEBRAL BODY. ADDITIONAL CHRONIC CHANGES ABOVE. Lumbar Spine CT 02/03/18 22:25 IMPRESSION: 1. Mild L2 anterior vertebral fracture. 2. Mild retroperitoneal lymphadenopathy. Lower Extremity CT 02/03/18 22:26 IMPRESSION: Extensively comminuted right calcaneal fracture. Upper Extremity CT 02/03/18 22:26 IMPRESSION: Comminuted intra-articular fracture of the distal right radius. Limitation. Humerus X-Ray 02/04/18 00:00 IMPRESSION: Comminuted fracture between middle and distal 3rd of right humerus. Wrist X-Ray 02/04/18 00:00 IMPRESSION: Status post internal fixation of comminuted distal right radial and radius styloid fracture. Chest X-Ray 02/06/18 00:00 IMPRESSION: 1 low lung volumes limits the examination. NO ACUTE RADIOGRAPHIC FINDING IN THE CHEST. Fluoroscopy 02/08/18 00:00 IMPRESSION: Intra procedural imaging and fluoro Os Calcis X-ray 02/08/18 00:00 IMPRESSION: Intra procedural imaging and fluoro Knee X-Ray 02/10/18 00:00 IMPRESSION: Soft tissue fullness at the level of the suprapatellar pouch and the possibility of a joint effusion should be considered. Other findings as noted above Lower Extremity MRI 02/13/18 06:38 IMPRESSION: Fractures as above Torn anterior cruciate ligament and medial meniscus Tendinopathy with superimposed acute partial thickness tear of the proximal attachment, medial head gastrocnemius muscle Assessment & Plan - Diagnosis (1) Griffith's fracture of distal radius, closed Qualifiers: Encounter type: initial encounter Laterality: right Qualified Code(s): S52.561A - Griffith's fracture of right radius, initial encounter for closed fracture Is this a current diagnosis for this admission?: Yes (2) Calcaneal fracture Qualifiers: Encounter type: initial encounter Calcaneus location: body Fracture type : closed Fracture alignment: displaced Laterality: right Qualified Code(s) : S92.011A - Displaced fracture of body of right calcaneus, initial encounter for closed fracture Is this a current diagnosis for this admission?: Yes (3) Right humeral fracture Qualifiers: Encounter type: initial encounter Humerus Location: proximal Fracture type: closed Fracture morphology: other fracture Fracture alignment: displaced Qualified Code(s): S42.291A - Other displaced fracture of upper end of right humerus, initial encounter for closed fracture Is this a current diagnosis for this admission?: Yes Plan: Postop day #5 status post ORIF right humeral shaft/distal radius #1 continue occupational therapy maintain nonweightbearing the right upper extremity. I have stressed the importance of passive range of motion. Patient does have evidence of radial nerve palsy will continue to monitor status. #2 Xarelto for DVT prophylaxis #3 continue current pain regimen #4 patient has evidence of bilateral knee pain appears left greater than right. MRI demonstrates left ACL tear which may require further intervention in the future. #5 continue TLSO when out of bed for L2 compression fracture #6 touchdown weightbearing right lower extremity as per Dr. Sanchez's protocol #6 discharge planning patient would like to go home but will have to manage maneuvering from the bed to chair independently. Once he has achieved this and his pain is controlled he will be stable for discharge to home versus in rehab rehabilitation
[2018-02-14] MEDS: AMIODARONE HCL 200 MG TABLET PO SCH ×2 (11:31→21:02)
[2018-02-14] MEDS: DOCUSATE SODIUM 100 MG CAPSULE PO SCH (11:31)
[2018-02-14] MEDS: PREGABALIN 75 MG CAPSULE PO SCH ×2 (11:32→18:54)
[2018-02-14] MEDS: METOPROLOL SUCCINATE 25 MG TAB.SR.24H PO SCH ×2 (11:32→21:02)
--- NOTE | 2018-02-14 12:02 | PDOC PROGRESS REPORT ---
Subjective Progress Note for:: 02/08/18 Subjective:: Patient seems to be doing better with gradual improvement. Patient seen on morning rounds. Pt is denying any chest arm or neck discomfort. Patient denying any PND, orthopnea. Patient denied any sustained palpitations, dizziness, syncope, near syncope. Patient denying any fever chills. Patient denying any other significant discomfort. Patient is maintaining sinus rhythm. Patient scheduled for surgery of the right calcaneus bone. Review of systems: Rest review of systems negative. Medications: Medications have been reviewed. Reason For Visit: RIGHT DISTAL RADIUS FRACTURE, RIGHT HUMERAL SHAFT Physical Exam Vital Signs: Temp Pulse Resp BP Pulse Ox 100.4 F 91 16 136/70 H 97 02/08/18 20:14 02/08/18 20:14 02/08/18 20:14 02/08/18 20:14 02/08/18 20:14 Intake & Output 02/07/18 02/08/18 02/09/18 06:59 06:59 06:59 Intake Total 5591 234 3883 Output Total 1300 600 925 Balance -200 272 213 Weight 100 kg 108.3 kg Exam: GENERAL: well-nourished and in no acute distress. Alert and oriented x3 HEAD: Atraumatic, normocephalic. EYES: Pupils equal round and reactive to light, extraocular movements intact, sclera anicteric, conjunctiva are normal. ENT: TMs normal, nares patent, oropharynx clear without exudates. Moist mucous membranes. No oral ulcerations or bleeding gums noted NECK: supple without lymphadenopathy. Trachea is central. No cervical or axillary lymphadenopathy noted. Carotids are 2+, JVD WNL LUNGS: Respiration seems nonlabored, no significant accessory muscle action noted. Breath sounds clear to auscultation bilaterally and equal noted. No wheezes rales or rhonchi noted. No significant dullness noted on percussion. CHEST: Palpation of the chest wall shows no significant chest wall tenderness. No other significant abnormalities noted. HEART: [place] [employer], No PSH, 1/6 ROSENDO aortic area, 1/6 justice systolic murmur mitral area, no rubs, no gallops. ABDOMEN: Soft, no significant tenderness appreciated, normoactive bowel sounds. No guarding, no rebound. No rigidity noted . No masses appreciated. EXTREMITIES: Pedal pulses are 1-2+, no calf tenderness noted. No clubbing or cyanosis. negative pedal edema noted NEUROLOGICAL: Focused neurological exam showed no significant neurologic deficit. Normal speech, no focal weakness appreciated. PSYCH: Normal mood, normal affect. Judgment and insight within normal limits. SKIN: No significant ecchymosis, skin is noted to be warm. MUSCULOSKELETAL EXAM: No significant acute joint swelling noted. Right upper extremity in soft cast and bandaged being status post surgery. Right foot in bandage. Results Laboratory Results: 02/07/18 05:04 02/06/18 12:54 02/06/18 02/06/18 12:54 12:54 Creatine Kinase 3969 H CK-MB (CK-2) 0.68 Troponin I < 0.012 EKG Comments: Telemetry strip shows sinus rhythm. Impressions: Cervical Spine CT 02/03/18 00:00 IMPRESSION: MILD DEGENERATIVE CHANGE OF THE CERVICAL SPINE WITHOUT FRACTURE. VASCULAR CALCIFICATIONS. Foot X-Ray 02/03/18 18:34 IMPRESSION: SEVERELY COMMINUTED FRACTURE INVOLVING THE ENTIRETY OF THE CALCANEUS WITH EXTENSION INTO THE SUBTALAR JOINT SPACE. ORTHOPEDIC CONSULTATION RECOMMENDED. NO ADDITIONAL FRACTURE IDENTIFIED INVOLVING THE RIGHT OR RIGHT FOOT. Ankle X-Ray 02/03/18 18:55 IMPRESSION: SEVERELY COMMINUTED FRACTURE INVOLVING THE ENTIRETY OF THE CALCANEUS WITH EXTENSION INTO THE SUBTALAR JOINT SPACE. ORTHOPEDIC CONSULTATION RECOMMENDED. NO ADDITIONAL FRACTURE IDENTIFIED INVOLVING THE RIGHT OR RIGHT FOOT. Lumbar Spine X-Ray 02/03/18 18:55 IMPRESSION: MILDLY DISPLACED FRACTURE ANTERIOR SUPERIOR ENDPLATE L2 VERTEBRAL BODY. ADDITIONAL CHRONIC CHANGES ABOVE. Lumbar Spine CT 02/03/18 22:25 IMPRESSION: 1. Mild L2 anterior vertebral fracture. 2. Mild retroperitoneal lymphadenopathy. Lower Extremity CT 02/03/18 22:26 IMPRESSION: Extensively comminuted right calcaneal fracture. Upper Extremity CT 02/03/18 22:26 IMPRESSION: Comminuted intra-articular fracture of the distal right radius. Limitation. Humerus X-Ray 02/04/18 00:00 IMPRESSION: Comminuted fracture between middle and distal 3rd of right humerus. Wrist X-Ray 02/04/18 00:00 IMPRESSION: Status post internal fixation of comminuted distal right radial and radius styloid fracture. Chest X-Ray 02/06/18 00:00 IMPRESSION: 1 low lung volumes limits the examination. NO ACUTE RADIOGRAPHIC FINDING IN THE CHEST. Fluoroscopy 02/08/18 00:00 IMPRESSION: Intra procedural imaging and fluoro Os Calcis X-ray 02/08/18 00:00 IMPRESSION: Intra procedural imaging and fluoro Assessment & Plan - Diagnosis (1) Atrial fibrillation Qualifiers: Atrial fibrillation type: unspecified Qualified Code(s): I48.91 - Unspecified atrial fibrillation Is this a current diagnosis for this admission?: Yes (2) Multiple fractures Is this a current diagnosis for this admission?: Yes (3) Hypertension Qualifiers: Hypertension type: essential hypertension Qualified Code(s): I10 - Essential (primary) hypertension Is this a current diagnosis for this admission?: Yes (4) Dyslipidemia Is this a current diagnosis for this admission?: Yes (5) Obesity Qualifiers: Obesity type: unspecified obesity type Obesity classification: unspecified obesity classification Serious obesity comorbidity presence: without serious comorbidity Qualified Code(s): E66.9 - Obesity, unspecified Is this a current diagnosis for this admission?: Yes (6) Sleep disorder breathing Is this a current diagnosis for this admission?: Yes - Notes Notes: Atrial fibrillation: Status post cardioversion, now maintaining sinus rhythm. Continue amiodarone 200 mg p.o. twice daily. Started on metoprolol succinate, will go up on the dose gradually as needed. No need for chronic anticoagulation at this point as chads score is only 1. Continue DVT prophylaxis dose of Lovenox or another agent of choice. Recommend amiodarone therapy for just 1 month total. Hypertension: Continue antihypertensive therapy. Will recommend beta-blockers and EZRA inhibitors. Dyslipidemia: Continue statin therapy. Statin therapy does reduce perioperative risk for cardiac events. Obesity: Patient will benefit from weight loss. Sleep disordered breathing: Patient does confirm history of loud snoring. This is suspected being present due to patient oropharyngeal exam, body habitus, comorbid diagnosis of hypertension and now atrial fibrillation. Patient will benefit from a sleep evaluation as an outpatient. 2D echo shows normal LVEF. At this point patient could proceed with surgery today. - Time Time with patient: 15-25 minutes - More than 50% of the time spent coordinating care, discussing management plans with involved caregivers. Management plans discussed with involved personnels. Medical decision making was of moderate to high complexity, patient's has multiple comorbidities. Medications reviewed and adjusted accordingly: Yes
--- NOTE | 2018-02-14 12:04 | PDOC PROGRESS REPORT ---
Subjective Progress Note for:: 02/09/18 Subjective:: Postop day 1. Maintaining sinus rhythm. Patient seems to be doing better with gradual improvement. Pt is denying any chest arm or neck discomfort. Patient denying any PND, orthopnea. Patient denied any sustained palpitations, dizziness, syncope, near syncope. Patient denying any fever chills. Patient denying any other significant discomfort. Patient is maintaining sinus rhythm. Review of systems: Rest review of systems negative. Medications: Medications have been reviewed. Reason For Visit: RIGHT DISTAL RADIUS FRACTURE, RIGHT HUMERAL SHAFT Physical Exam Vital Signs: Temp Pulse Resp BP Pulse Ox 99.0 F 82 12 126/69 H 97 02/09/18 15:33 02/09/18 15:33 02/09/18 15:33 02/09/18 15:33 02/09/18 15:33 Intake & Output 02/08/18 02/09/18 02/10/18 06:59 06:59 06:59 Intake Total 872 1838 1255 Output Total 600 1625 1600 Balance 272 213 -345 Weight 108.3 kg Exam: GENERAL: well-nourished and in no acute distress. Alert and oriented x3 HEAD: Atraumatic, normocephalic. EYES: Pupils equal round and reactive to light, extraocular movements intact, sclera anicteric, conjunctiva are normal. ENT: TMs normal, nares patent, oropharynx clear without exudates. Moist mucous membranes. No oral ulcerations or bleeding gums noted NECK: supple without lymphadenopathy. Trachea is central. No cervical or axillary lymphadenopathy noted. Carotids are 2+, JVD WNL LUNGS: Respiration seems nonlabored, no significant accessory muscle action noted. Breath sounds clear to auscultation bilaterally and equal noted. No wheezes rales or rhonchi noted. No significant dullness noted on percussion. CHEST: Palpation of the chest wall shows no significant chest wall tenderness. No other significant abnormalities noted. HEART: [place] [employer]OR, No PSH, 1/6 ROSENDO aortic area, 1/6 justice systolic murmur mitral area, no rubs, no gallops. ABDOMEN: Soft, no significant tenderness appreciated, normoactive bowel sounds. No guarding, no rebound. No rigidity noted . No masses appreciated. EXTREMITIES: Pedal pulses are 1-2+, no calf tenderness noted. No clubbing or cyanosis. Trace to 1+ pedal edema noted, left leg. NEUROLOGICAL: Focused neurological exam showed no significant neurologic deficit. Normal speech, no focal weakness appreciated. PSYCH: Normal mood, normal affect. Judgment and insight within normal limits. SKIN: No significant ecchymosis, skin is noted to be warm. MUSCULOSKELETAL EXAM: No significant acute joint swelling noted. Right upper extremity in bandage being postop. Right foot had surgery yesterday and bandage. Results Laboratory Results: 02/09/18 05:10 02/09/18 05:10 02/09/18 02/09/18 05:10 05:10 WBC 8.6 RBC 3.00 L Hgb 10.2 L Hct 28.6 L MCV 95 MCH 34.1 H MCHC 35.8 RDW 11.8 Plt Count 271 Sodium 134.3 L Potassium 3.9 Chloride 101 Carbon Dioxide 25 Anion Gap 8 BUN 17 Creatinine 0.92 Est GFR ( Amer) > 60 Est GFR (Non-Af Amer) > 60 Glucose 126 H Calcium 8.0 L 02/06/18 02/06/18 12:54 12:54 Creatine Kinase 3969 H CK-MB (CK-2) 0.68 Troponin I < 0.012 EKG Comments: Telemetry strip shows sinus rhythm. No sustained tachyarrhythmia noted. Impressions: Cervical Spine CT 02/03/18 00:00 IMPRESSION: MILD DEGENERATIVE CHANGE OF THE CERVICAL SPINE WITHOUT FRACTURE. VASCULAR CALCIFICATIONS. Foot X-Ray 02/03/18 18:34 IMPRESSION: SEVERELY COMMINUTED FRACTURE INVOLVING THE ENTIRETY OF THE CALCANEUS WITH EXTENSION INTO THE SUBTALAR JOINT SPACE. ORTHOPEDIC CONSULTATION RECOMMENDED. NO ADDITIONAL FRACTURE IDENTIFIED INVOLVING THE RIGHT OR RIGHT FOOT. Ankle X-Ray 02/03/18 18:55 IMPRESSION: SEVERELY COMMINUTED FRACTURE INVOLVING THE ENTIRETY OF THE CALCANEUS WITH EXTENSION INTO THE SUBTALAR JOINT SPACE. ORTHOPEDIC CONSULTATION RECOMMENDED. NO ADDITIONAL FRACTURE IDENTIFIED INVOLVING THE RIGHT OR RIGHT FOOT. Lumbar Spine X-Ray 02/03/18 18:55 IMPRESSION: MILDLY DISPLACED FRACTURE ANTERIOR SUPERIOR ENDPLATE L2 VERTEBRAL BODY. ADDITIONAL CHRONIC CHANGES ABOVE. Lumbar Spine CT 02/03/18 22:25 IMPRESSION: 1. Mild L2 anterior vertebral fracture. 2. Mild retroperitoneal lymphadenopathy. Lower Extremity CT 02/03/18 22:26 IMPRESSION: Extensively comminuted right calcaneal fracture. Upper Extremity CT 02/03/18 22:26 IMPRESSION: Comminuted intra-articular fracture of the distal right radius. Limitation. Humerus X-Ray 02/04/18 00:00 IMPRESSION: Comminuted fracture between middle and distal 3rd of right humerus. Wrist X-Ray 02/04/18 00:00 IMPRESSION: Status post internal fixation of comminuted distal right radial and radius styloid fracture. Chest X-Ray 02/06/18 00:00 IMPRESSION: 1 low lung volumes limits the examination. NO ACUTE RADIOGRAPHIC FINDING IN THE CHEST. Fluoroscopy 02/08/18 00:00 IMPRESSION: Intra procedural imaging and fluoro Os Calcis X-ray 02/08/18 00:00 IMPRESSION: Intra procedural imaging and fluoro Assessment & Plan - Diagnosis (1) Atrial fibrillation Qualifiers: Atrial fibrillation type: unspecified Qualified Code(s): I48.91 - Unspecified atrial fibrillation Is this a current diagnosis for this admission?: Yes (2) Multiple fractures Is this a current diagnosis for this admission?: Yes (3) Hypertension Qualifiers: Hypertension type: essential hypertension Qualified Code(s): I10 - Essential (primary) hypertension Is this a current diagnosis for this admission?: Yes (4) Dyslipidemia Is this a current diagnosis for this admission?: Yes (5) Obesity Qualifiers: Obesity type: unspecified obesity type Obesity classification: unspecified obesity classification Serious obesity comorbidity presence: without serious comorbidity Qualified Code(s): E66.9 - Obesity, unspecified Is this a current diagnosis for this admission?: Yes (6) Sleep disorder breathing Is this a current diagnosis for this admission?: Yes - Notes Notes: Atrial fibrillation: Status post cardioversion, continue amiodarone 200 mg p.o. twice daily, through this hospitalization and up to a maximum of 1 month. Continue patient on on metoprolol succinate at current dose. No need for chronic anticoagulation at this point as chads score is only 1. Continue DVT prophylaxis dose of Lovenox or another agent of choice. Hypertension: Continue antihypertensive therapy. Will recommend beta-blockers and EZRA inhibitors. Blood pressure seems reasonably well controlled Dyslipidemia: Continue statin therapy. Statin therapy does reduce perioperative risk for cardiac events. Obesity: Patient will benefit from weight loss. Sleep disordered breathing: Patient does confirm history of loud snoring. This is suspected being present due to patient oropharyngeal exam, body habitus, comorbid diagnosis of hypertension and now atrial fibrillation. Patient will benefit from a sleep evaluation as an outpatient. 2D echo shows normal LVEF. - Time Time with patient: 15-25 minutes - CODE STATUS was discussed, patient remains full code. Surrogate decision-maker unchanged. Multiple medical problems were addressed. More than 50% of the time spent coordinating care, discussing management plans with involved caregivers. Management plans discussed with involved personnels. Medical decision making was of moderate to high complexity , patient's has multiple comorbidities. Medications reviewed and adjusted accordingly: Yes
--- NOTE | 2018-02-14 12:07 | PDOC PROGRESS REPORT ---
Subjective Progress Note for:: 02/10/18 Subjective:: Postop day 2. Maintaining sinus rhythm. Patient seems to be doing better with gradual improvement. Pt is denying any chest arm or neck discomfort. Patient denying any PND, orthopnea. Patient denied any sustained palpitations, dizziness, syncope, near syncope. Patient denying any fever chills. Patient denying any other significant discomfort. Patient is maintaining sinus rhythm. Patient having difficult time with physical therapy. Review of systems: Rest review of systems negative. Medications: Medications have been reviewed. Reason For Visit: RIGHT DISTAL RADIUS FRACTURE, RIGHT HUMERAL SHAFT Physical Exam Vital Signs: Temp Pulse Resp BP Pulse Ox 99.1 F 81 20 111/60 97 02/10/18 11:25 02/10/18 11:25 02/10/18 11:25 02/10/18 11:25 02/10/18 11:25 Intake & Output 02/09/18 02/10/18 02/11/18 06:59 06:59 06:59 Intake Total 1838 2355 Output Total 1625 1600 Balance 213 755 Exam: GENERAL: well-nourished and in no acute distress. Alert and oriented x3 HEAD: Atraumatic, normocephalic. EYES: Pupils equal round and reactive to light, extraocular movements intact, sclera anicteric, conjunctiva are normal. ENT: TMs normal, nares patent, oropharynx clear without exudates. Moist mucous membranes. No oral ulcerations or bleeding gums noted NECK: supple without lymphadenopathy. Trachea is central. No cervical or axillary lymphadenopathy noted. Carotids are 2+, JVD WNL LUNGS: Respiration seems nonlabored, no significant accessory muscle action noted. Breath sounds clear to auscultation bilaterally and equal noted. No wheezes rales or rhonchi noted. No significant dullness noted on percussion. CHEST: Palpation of the chest wall shows no significant chest wall tenderness. No other significant abnormalities noted. 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 ABDOMEN: Soft, no significant tenderness appreciated, normoactive bowel sounds. No guarding, no rebound. No rigidity noted . No masses appreciated. EXTREMITIES: Pedal pulses are 1-2+, no calf tenderness noted. No clubbing or cyanosis. Trace to 1+ pedal edema noted, left lower extremity. NEUROLOGICAL: Focused neurological exam showed no significant neurologic deficit. Normal speech, no focal weakness appreciated. PSYCH: Normal mood, normal affect. Judgment and insight within normal limits. SKIN: No significant ecchymosis, skin is noted to be warm. MUSCULOSKELETAL EXAM: As per orthopedic surgeon.. Results Laboratory Results: 02/09/18 05:10 02/09/18 05:10 02/06/18 02/06/18 12:54 12:54 Creatine Kinase 3969 H CK-MB (CK-2) 0.68 Troponin I < 0.012 EKG Comments: Telemetry strip shows sinus rhythm without any sustained tachycardia or bradycardia. Impressions: Cervical Spine CT 02/03/18 00:00 IMPRESSION: MILD DEGENERATIVE CHANGE OF THE CERVICAL SPINE WITHOUT FRACTURE. VASCULAR CALCIFICATIONS. Foot X-Ray 02/03/18 18:34 IMPRESSION: SEVERELY COMMINUTED FRACTURE INVOLVING THE ENTIRETY OF THE CALCANEUS WITH EXTENSION INTO THE SUBTALAR JOINT SPACE. ORTHOPEDIC CONSULTATION RECOMMENDED. NO ADDITIONAL FRACTURE IDENTIFIED INVOLVING THE RIGHT OR RIGHT FOOT. Ankle X-Ray 02/03/18 18:55 IMPRESSION: SEVERELY COMMINUTED FRACTURE INVOLVING THE ENTIRETY OF THE CALCANEUS WITH EXTENSION INTO THE SUBTALAR JOINT SPACE. ORTHOPEDIC CONSULTATION RECOMMENDED. NO ADDITIONAL FRACTURE IDENTIFIED INVOLVING THE RIGHT OR RIGHT FOOT. Lumbar Spine X-Ray 02/03/18 18:55 IMPRESSION: MILDLY DISPLACED FRACTURE ANTERIOR SUPERIOR ENDPLATE L2 VERTEBRAL BODY. ADDITIONAL CHRONIC CHANGES ABOVE. Lumbar Spine CT 02/03/18 22:25 IMPRESSION: 1. Mild L2 anterior vertebral fracture. 2. Mild retroperitoneal lymphadenopathy. Lower Extremity CT 02/03/18 22:26 IMPRESSION: Extensively comminuted right calcaneal fracture. Upper Extremity CT 02/03/18 22:26 IMPRESSION: Comminuted intra-articular fracture of the distal right radius. Limitation. Humerus X-Ray 02/04/18 00:00 IMPRESSION: Comminuted fracture between middle and distal 3rd of right humerus. Wrist X-Ray 02/04/18 00:00 IMPRESSION: Status post internal fixation of comminuted distal right radial and radius styloid fracture. Chest X-Ray 02/06/18 00:00 IMPRESSION: 1 low lung volumes limits the examination. NO ACUTE RADIOGRAPHIC FINDING IN THE CHEST. Fluoroscopy 02/08/18 00:00 IMPRESSION: Intra procedural imaging and fluoro Os Calcis X-ray 02/08/18 00:00 IMPRESSION: Intra procedural imaging and fluoro Knee X-Ray 02/10/18 00:00 IMPRESSION: Soft tissue fullness at the level of the suprapatellar pouch and the possibility of a joint effusion should be considered. Other findings as noted above Assessment & Plan - Diagnosis (1) Atrial fibrillation Qualifiers: Atrial fibrillation type: unspecified Qualified Code(s): I48.91 - Unspecified atrial fibrillation Is this a current diagnosis for this admission?: Yes (2) Multiple fractures Is this a current diagnosis for this admission?: Yes (3) Hypertension Qualifiers: Hypertension type: essential hypertension Qualified Code(s): I10 - Essential (primary) hypertension Is this a current diagnosis for this admission?: Yes (4) Dyslipidemia Is this a current diagnosis for this admission?: Yes (5) Obesity Qualifiers: Obesity type: unspecified obesity type Obesity classification: unspecified obesity classification Serious obesity comorbidity presence: without serious comorbidity Qualified Code(s): E66.9 - Obesity, unspecified Is this a current diagnosis for this admission?: Yes (6) Sleep disorder breathing Is this a current diagnosis for this admission?: Yes - Notes Notes: Atrial fibrillation: Status post cardioversion, continue amiodarone 200 mg p.o. twice daily, maximum for 1 month but could well be stopped on discharge. Continue patient on metoprolol succinate. No need for chronic anticoagulation at this point as chads score is only 1. Continue DVT prophylaxis dose of Lovenox or another agent of choice. Hypertension: Continue antihypertensive therapy. Will recommend beta-blockers and EZRA inhibitors. Dyslipidemia: Continue statin therapy. Statin therapy does reduce perioperative risk for cardiac events. Obesity: Patient will benefit from weight loss. Sleep disordered breathing: Patient does confirm history of loud snoring. This is suspected being present due to patient oropharyngeal exam, body habitus, comorbid diagnosis of hypertension and now atrial fibrillation. Patient will benefit from a sleep evaluation as an outpatient. 2D echo shows normal LVEF. Patient has been stable from cardiac standpoint. Will see patient on a as needed basis since patient on amiodarone therapy. Please inform me if patient needs to be seen on an urgent basis - Time Time with patient: 15-25 minutes - More than 50% of the time spent coordinating care, discussing management plans with involved caregivers. Management plans discussed with involved personnels. Medical decision making was of moderate to high complexity, patient's has multiple comorbidities. Medications reviewed and adjusted accordingly: Yes
--- NOTE | 2018-02-14 13:17 | RADIOLOGY REPORT (SQ) ---
EXAM DESCRIPTION: MRI RT LOWER JOINT WITHOUT COMPLETED DATE/TIME: 02/14/2018 11:08 am REASON FOR STUDY: eval effusion COMPARISON: None. TECHNIQUE: Rightknee images acquired and stored on PACS. Multiplanar images include fat sensitive s equences as T1, water sensitive sequences as FST2 or STIR, cartilage sensitive sequences as FSPD, and gradient echo sequences. LIMITATIONS: None. FINDINGS: JOINT AND BURSAE: Small suprapatellar knee joint effusion BONE CORTEX AND MARROW: There is a bone contusion in the posterior edge medial tibial plateau without depression of the articular surface or well-circumscribed fracture line. This is best shown on chris nal images 19-21, axial image 18 and sagittal images 17 and 18. Minimal edema in the fibular head at the proximal tibiofibular joint is present without well-defined fracture line. This is best shown o n sagittal images 6 and 7. ACL: Intact anterior band. No degeneration or ganglion cyst. PCL: Intact. MCL: Intact. No periligamentous edema or fluid. LCL: Intact. No periligamentous edema or fluid. MEDIAL MENISCUS: No tears. No abnormal signal. LATERAL MENISCUS: No tears. No abnormal signal. MEDIAL COMPARTMENT: Cartilage preserved. No bone bruises or reactive marrow edema. No osteophytes. LATERAL COMPARTMENT: Cartilage preserved. No bone bruises or reactive marrow edema. No osteophytes. PATELLA: No chondromalacia. No subchondral cysts. Medial and lateral retinacula intact. EXTENSOR MECHANISM: Intact. Quadriceps and patella tendons normal. SOFT TISSUES: The popliteus tendon proximally is thickened and high in signal from tendinopathy. Acu te injury could not be excluded. This is best shown on coronal images 14-20 and axial image 17. No soft tissue hematoma around the knee. No varicose veins. Normal flow voids in the popliteal artery and vein. OTHER: No other significant finding. IMPRESSION: Bone contusion, posterior aspect medial tibial plateau and proximal fibula at the proxim al tibiofibular joint. Popliteus tendon high signal from strain or tendinopathy. TECHNICAL DOCUMENTATION: JOB ID: [id number] [employer]- All Rights Reserved Reading location - IP/workstation name: [email or web address]
[2018-02-14] MEDS: RIVAROXABAN 10 MG TABLET PO SCH (16:31)
[2018-02-15] MEDS: MORPHINE SULFATE 10 MG/ML INJ IV PRN ×5 (04:04→22:51)
[2018-02-15] MEDS: OXYCODONE-ACETAMINOPHEN 5-325 MG TABLET PO PRN ×3 (04:09→22:55)
[2018-02-15] MEDS: LANSOPRAZOLE 30 MG TAB.RAP.DR PO SCH (04:11)
--- NOTE | 2018-02-15 06:49 | PDOC PROGRESS REPORT ---
Subjective Progress Note for:: 02/15/18 Reason For Visit: RIGHT DISTAL RADIUS FRACTURE, RIGHT HUMERAL SHAFT Status post open reduction of right upper and right lower extremity fractures, left knee ACL disruption, meniscal tear, and nondisplaced fracture. Physical Exam Vital Signs: Temp Pulse Resp BP Pulse Ox 36.5 C 71 18 125/80 98 02/15/18 04:19 02/15/18 04:19 02/15/18 04:19 02/15/18 04:19 02/15/18 04:19 Intake & Output 02/13/18 02/14/18 02/15/18 06:59 06:59 06:59 Intake Total 4401 1577 896 Output Total 4500 2100 0 Balance -99 -523 -1154 Weight 107.1 kg 105.3 kg General appearance: PRESENT: no acute distress Head exam: PRESENT: normocephalic Respiratory exam: PRESENT: unlabored Cardiovascular exam: PRESENT: RRR Vascular exam: PRESENT: normal capillary refill GI/Abdominal exam: PRESENT: soft Rectal exam: PRESENT: deferred Extremities exam: PRESENT: other - Dressings are clean dry and intact. Results Laboratory Results: 02/09/18 05:10 02/09/18 05:10 02/06/18 02/06/18 12:54 12:54 Creatine Kinase 3969 H CK-MB (CK-2) 0.68 Troponin I < 0.012 Impressions: Cervical Spine CT 02/03/18 00:00 IMPRESSION: MILD DEGENERATIVE CHANGE OF THE CERVICAL SPINE WITHOUT FRACTURE. VASCULAR CALCIFICATIONS. Foot X-Ray 02/03/18 18:34 IMPRESSION: SEVERELY COMMINUTED FRACTURE INVOLVING THE ENTIRETY OF THE CALCANEUS WITH EXTENSION INTO THE SUBTALAR JOINT SPACE. ORTHOPEDIC CONSULTATION RECOMMENDED. NO ADDITIONAL FRACTURE IDENTIFIED INVOLVING THE RIGHT OR RIGHT FOOT. Ankle X-Ray 02/03/18 18:55 IMPRESSION: SEVERELY COMMINUTED FRACTURE INVOLVING THE ENTIRETY OF THE CALCANEUS WITH EXTENSION INTO THE SUBTALAR JOINT SPACE. ORTHOPEDIC CONSULTATION RECOMMENDED. NO ADDITIONAL FRACTURE IDENTIFIED INVOLVING THE RIGHT OR RIGHT FOOT. Lumbar Spine X-Ray 02/03/18 18:55 IMPRESSION: MILDLY DISPLACED FRACTURE ANTERIOR SUPERIOR ENDPLATE L2 VERTEBRAL BODY. ADDITIONAL CHRONIC CHANGES ABOVE. Lumbar Spine CT 02/03/18 22:25 IMPRESSION: 1. Mild L2 anterior vertebral fracture. 2. Mild retroperitoneal lymphadenopathy. Lower Extremity CT 02/03/18 22:26 IMPRESSION: Extensively comminuted right calcaneal fracture. Upper Extremity CT 02/03/18 22:26 IMPRESSION: Comminuted intra-articular fracture of the distal right radius. Limitation. Humerus X-Ray 02/04/18 00:00 IMPRESSION: Comminuted fracture between middle and distal 3rd of right humerus. Wrist X-Ray 02/04/18 00:00 IMPRESSION: Status post internal fixation of comminuted distal right radial and radius styloid fracture. Chest X-Ray 02/06/18 00:00 IMPRESSION: 1 low lung volumes limits the examination. NO ACUTE RADIOGRAPHIC FINDING IN THE CHEST. Fluoroscopy 02/08/18 00:00 IMPRESSION: Intra procedural imaging and fluoro Os Calcis X-ray 02/08/18 00:00 IMPRESSION: Intra procedural imaging and fluoro Knee X-Ray 02/10/18 00:00 IMPRESSION: Soft tissue fullness at the level of the suprapatellar pouch and the possibility of a joint effusion should be considered. Other findings as noted above Lower Extremity MRI 02/14/18 09:00 IMPRESSION: Bone contusion, posterior aspect medial tibial plateau and proximal fibula at the proximal tibiofibular joint. Popliteus tendon high signal from strain or tendinopathy. Status: Imported from PACS Assessment & Plan - Diagnosis (1) Calcaneal fracture Qualifiers: Encounter type: initial encounter Calcaneus location: body Fracture type : closed Fracture alignment: displaced Laterality: right Qualified Code(s) : S92.011A - Displaced fracture of body of right calcaneus, initial encounter for closed fracture Is this a current diagnosis for this admission?: Yes Plan: Stable, maintain touchdown weightbearing (2) Knee effusion, left Is this a current diagnosis for this admission?: Yes (3) ACL injury tear Is this a current diagnosis for this admission?: Yes Plan: Currently of decreasing symptoms (4) Meniscal injury Is this a current diagnosis for this admission?: Yes (5) Right anterior knee pain Is this a current diagnosis for this admission?: Yes Plan: Presumably secondary to bone bruise - Time Time Spent with patient: 15-24 minutes Anticipated discharge: SNF - Patient working on transfers from bed to chair. He is awaiting care home facility placement in Worker's Compensation authorization for the placement.
[2018-02-15] MEDS: LISINOPRIL 10 MG TABLET PO SCH ×2 (08:25→20:41)
[2018-02-15] MEDS: DOCUSATE SODIUM 100 MG CAPSULE PO SCH (09:36)
[2018-02-15] MEDS: METOPROLOL SUCCINATE 25 MG TAB.SR.24H PO SCH ×2 (09:36→20:40)
[2018-02-15] MEDS: AMIODARONE HCL 200 MG TABLET PO SCH ×2 (09:36→20:41)
[2018-02-15] MEDS: PREGABALIN 75 MG CAPSULE PO SCH ×2 (09:36→17:26)
[2018-02-15] MEDS: RIVAROXABAN 10 MG TABLET PO SCH (17:26)
[2018-02-16] MEDS: MORPHINE SULFATE 10 MG/ML INJ IV PRN ×5 (03:36→23:01)
--- NOTE | 2018-02-16 06:20 | PDOC PROGRESS REPORT ---
Subjective Progress Note for:: 02/16/18 Reason For Visit: RIGHT DISTAL RADIUS FRACTURE, RIGHT HUMERAL SHAFT 57-year-old white male status post open reduction of right upper and lower extremity fractures, with a left knee ACL disruption, medial viscous tear and nondisplaced tibial plateau fracture Physical Exam Vital Signs: Temp Pulse Resp BP Pulse Ox 36.6 C 70 20 124/80 98 02/16/18 03:52 02/16/18 03:52 02/16/18 03:52 02/16/18 03:52 02/16/18 03:52 Intake & Output 02/14/18 02/15/18 02/16/18 06:59 06:59 06:59 Intake Total 1117 701 7560 Output Total 2099 2049 3675 Balance -523 -0212 -9236 Weight 107.1 kg 105.3 kg 103.2 kg General appearance: PRESENT: no acute distress Head exam: PRESENT: normocephalic Respiratory exam: PRESENT: unlabored Cardiovascular exam: PRESENT: RRR Vascular exam: PRESENT: normal capillary refill GI/Abdominal exam: PRESENT: soft Rectal exam: PRESENT: deferred Extremities exam: PRESENT: other - Right upper and right lower extremity dressings are clean dry and intact. Effusion in the left knee is considerably decreased. Continued pain in the right knee which at this point is being attributed to a contusion. Psychiatric exam: PRESENT: appropriate affect, normal mood. ABSENT: homicidal ideation, suicidal ideation Skin exam: PRESENT: dry, intact, warm. ABSENT: cyanosis, rash Results Laboratory Results: 02/09/18 05:10 02/09/18 05:10 02/06/18 02/06/18 12:54 12:54 Creatine Kinase 3969 H CK-MB (CK-2) 0.68 Troponin I < 0.012 Impressions: Cervical Spine CT 02/03/18 00:00 IMPRESSION: MILD DEGENERATIVE CHANGE OF THE CERVICAL SPINE WITHOUT FRACTURE. VASCULAR CALCIFICATIONS. Foot X-Ray 02/03/18 18:34 IMPRESSION: SEVERELY COMMINUTED FRACTURE INVOLVING THE ENTIRETY OF THE CALCANEUS WITH EXTENSION INTO THE SUBTALAR JOINT SPACE. ORTHOPEDIC CONSULTATION RECOMMENDED. NO ADDITIONAL FRACTURE IDENTIFIED INVOLVING THE RIGHT OR RIGHT FOOT. Ankle X-Ray 02/03/18 18:55 IMPRESSION: SEVERELY COMMINUTED FRACTURE INVOLVING THE ENTIRETY OF THE CALCANEUS WITH EXTENSION INTO THE SUBTALAR JOINT SPACE. ORTHOPEDIC CONSULTATION RECOMMENDED. NO ADDITIONAL FRACTURE IDENTIFIED INVOLVING THE RIGHT OR RIGHT FOOT. Lumbar Spine X-Ray 02/03/18 18:55 IMPRESSION: MILDLY DISPLACED FRACTURE ANTERIOR SUPERIOR ENDPLATE L2 VERTEBRAL BODY. ADDITIONAL CHRONIC CHANGES ABOVE. Lumbar Spine CT 02/03/18 22:25 IMPRESSION: 1. Mild L2 anterior vertebral fracture. 2. Mild retroperitoneal lymphadenopathy. Lower Extremity CT 02/03/18 22:26 IMPRESSION: Extensively comminuted right calcaneal fracture. Upper Extremity CT 02/03/18 22:26 IMPRESSION: Comminuted intra-articular fracture of the distal right radius. Limitation. Humerus X-Ray 02/04/18 00:00 IMPRESSION: Comminuted fracture between middle and distal 3rd of right humerus. Wrist X-Ray 02/04/18 00:00 IMPRESSION: Status post internal fixation of comminuted distal right radial and radius styloid fracture. Chest X-Ray 02/06/18 00:00 IMPRESSION: 1 low lung volumes limits the examination. NO ACUTE RADIOGRAPHIC FINDING IN THE CHEST. Fluoroscopy 02/08/18 00:00 IMPRESSION: Intra procedural imaging and fluoro Os Calcis X-ray 02/08/18 00:00 IMPRESSION: Intra procedural imaging and fluoro Knee X-Ray 02/10/18 00:00 IMPRESSION: Soft tissue fullness at the level of the suprapatellar pouch and the possibility of a joint effusion should be considered. Other findings as noted above Lower Extremity MRI 02/14/18 09:00 IMPRESSION: Bone contusion, posterior aspect medial tibial plateau and proximal fibula at the proximal tibiofibular joint. Popliteus tendon high signal from strain or tendinopathy. Status: Imported from PACS Assessment & Plan - Diagnosis (1) Calcaneal fracture Qualifiers: Encounter type: initial encounter Calcaneus location: body Fracture type : closed Fracture alignment: displaced Laterality: right Qualified Code(s) : S92.011A - Displaced fracture of body of right calcaneus, initial encounter for closed fracture Is this a current diagnosis for this admission?: Yes Plan: Patient making limited progress with physical therapy including transfers from bed to chair (2) Knee effusion, left Is this a current diagnosis for this admission?: Yes Plan: Secondary to ACL disruption, medial meniscal tear, and nondisplaced tibial plateau fracture. Resolving (3) ACL injury tear Is this a current diagnosis for this admission?: Yes (4) Meniscal injury Is this a current diagnosis for this admission?: Yes (5) Right anterior knee pain Is this a current diagnosis for this admission?: Yes - Time Time Spent with patient: 15-24 minutes Anticipated discharge: SNF Within: when bed available - Patient awaiting arrangements for long term facility placement
[2018-02-16] MEDS: LANSOPRAZOLE 30 MG TAB.RAP.DR PO SCH (06:35)
[2018-02-16] MEDS: OXYCODONE-ACETAMINOPHEN 5-325 MG TABLET PO PRN ×4 (06:36→22:57)
[2018-02-16] MEDS: PREGABALIN 75 MG CAPSULE PO SCH ×2 (09:43→17:28)
[2018-02-16] MEDS: METOPROLOL SUCCINATE 25 MG TAB.SR.24H PO SCH ×2 (09:44→23:00)
[2018-02-16] MEDS: AMIODARONE HCL 200 MG TABLET PO SCH ×2 (09:44→22:57)
[2018-02-16] MEDS: DOCUSATE SODIUM 100 MG CAPSULE PO SCH (09:44)
[2018-02-16] MEDS: LISINOPRIL 10 MG TABLET PO SCH ×2 (09:49→22:58)
[2018-02-16] MEDS: RIVAROXABAN 10 MG TABLET PO SCH (16:28)
[2018-02-17] MEDS: MORPHINE SULFATE 10 MG/ML INJ IV PRN ×4 (03:22→23:21)
[2018-02-17] MEDS: LANSOPRAZOLE 30 MG TAB.RAP.DR PO SCH (06:28)
--- NOTE | 2018-02-17 07:05 | PDOC PROGRESS REPORT ---
Subjective Progress Note for:: 02/17/18 Reason For Visit: RIGHT DISTAL RADIUS FRACTURE, RIGHT HUMERAL SHAFT 57-year-old white male status post a fall and subsequent open reduction internal fixation of right upper and right lower extremity fractures. Patient complaining of right shoulder pain overnight. Is also complaining about recurrent constipation. Physical Exam Vital Signs: Temp Pulse Resp BP Pulse Ox 37.1 C 82 20 124/78 95 02/17/18 03:56 02/17/18 03:56 02/17/18 03:56 02/17/18 03:56 02/17/18 03:56 Intake & Output 02/16/18 02/17/18 02/18/18 06:59 06:59 06:59 Intake Total 2392 3458 Output Total 4575 3200 Balance -2183 258 Weight 103.2 kg 103.4 kg General appearance: PRESENT: no acute distress Head exam: PRESENT: normocephalic Respiratory exam: PRESENT: unlabored Cardiovascular exam: PRESENT: RRR Vascular exam: PRESENT: normal capillary refill GI/Abdominal exam: PRESENT: soft Rectal exam: PRESENT: deferred Extremities exam: PRESENT: other - Right upper and right lower extremity dressings clean dry and intact. Brisk capillary refill in each of the digits. Sensory examination intact to light touch. Motor function to the great toe and thumb intact. Neurological exam: PRESENT: alert, awake, oriented to person, oriented to place , oriented to time, oriented to situation. ABSENT: motor sensory deficit Psychiatric exam: PRESENT: appropriate affect, normal mood. ABSENT: homicidal ideation, suicidal ideation Skin exam: PRESENT: dry, intact, warm. ABSENT: cyanosis, rash Results Laboratory Results: 02/09/18 05:10 02/09/18 05:10 02/06/18 02/06/18 12:54 12:54 Creatine Kinase 3969 H CK-MB (CK-2) 0.68 Troponin I < 0.012 Impressions: Cervical Spine CT 02/03/18 00:00 IMPRESSION: MILD DEGENERATIVE CHANGE OF THE CERVICAL SPINE WITHOUT FRACTURE. VASCULAR CALCIFICATIONS. Foot X-Ray 02/03/18 18:34 IMPRESSION: SEVERELY COMMINUTED FRACTURE INVOLVING THE ENTIRETY OF THE CALCANEUS WITH EXTENSION INTO THE SUBTALAR JOINT SPACE. ORTHOPEDIC CONSULTATION RECOMMENDED. NO ADDITIONAL FRACTURE IDENTIFIED INVOLVING THE RIGHT OR RIGHT FOOT. Ankle X-Ray 02/03/18 18:55 IMPRESSION: SEVERELY COMMINUTED FRACTURE INVOLVING THE ENTIRETY OF THE CALCANEUS WITH EXTENSION INTO THE SUBTALAR JOINT SPACE. ORTHOPEDIC CONSULTATION RECOMMENDED. NO ADDITIONAL FRACTURE IDENTIFIED INVOLVING THE RIGHT OR RIGHT FOOT. Lumbar Spine X-Ray 02/03/18 18:55 IMPRESSION: MILDLY DISPLACED FRACTURE ANTERIOR SUPERIOR ENDPLATE L2 VERTEBRAL BODY. ADDITIONAL CHRONIC CHANGES ABOVE. Lumbar Spine CT 02/03/18 22:25 IMPRESSION: 1. Mild L2 anterior vertebral fracture. 2. Mild retroperitoneal lymphadenopathy. Lower Extremity CT 02/03/18 22:26 IMPRESSION: Extensively comminuted right calcaneal fracture. Upper Extremity CT 02/03/18 22:26 IMPRESSION: Comminuted intra-articular fracture of the distal right radius. Limitation. Humerus X-Ray 02/04/18 00:00 IMPRESSION: Comminuted fracture between middle and distal 3rd of right humerus. Wrist X-Ray 02/04/18 00:00 IMPRESSION: Status post internal fixation of comminuted distal right radial and radius styloid fracture. Chest X-Ray 02/06/18 00:00 IMPRESSION: 1 low lung volumes limits the examination. NO ACUTE RADIOGRAPHIC FINDING IN THE CHEST. Fluoroscopy 02/08/18 00:00 IMPRESSION: Intra procedural imaging and fluoro Os Calcis X-ray 02/08/18 00:00 IMPRESSION: Intra procedural imaging and fluoro Knee X-Ray 02/10/18 00:00 IMPRESSION: Soft tissue fullness at the level of the suprapatellar pouch and the possibility of a joint effusion should be considered. Other findings as noted above Lower Extremity MRI 02/14/18 09:00 IMPRESSION: Bone contusion, posterior aspect medial tibial plateau and proximal fibula at the proximal tibiofibular joint. Popliteus tendon high signal from strain or tendinopathy. Status: Imported from PACS Assessment & Plan - Diagnosis (1) Calcaneal fracture Qualifiers: Encounter type: initial encounter Calcaneus location: body Fracture type : closed Fracture alignment: displaced Laterality: right Qualified Code(s) : S92.011A - Displaced fracture of body of right calcaneus, initial encounter for closed fracture Is this a current diagnosis for this admission?: Yes (2) Knee effusion, left Is this a current diagnosis for this admission?: Yes (3) ACL injury tear Is this a current diagnosis for this admission?: Yes (4) Meniscal injury Is this a current diagnosis for this admission?: Yes (5) Right anterior knee pain Is this a current diagnosis for this admission?: Yes - Time Time Spent with patient: 15-24 minutes Anticipated discharge: SNF, Other - Patient to be transferred to [facility] when bed available. Follow-up with Dr. Sanchez and Dr. silver in the [facility] for surgery in approximately 2 weeks
[2018-02-17] MEDS: OXYCODONE HCL SR 10 MG TABLET PO SCH ×2 (10:05→21:16)
[2018-02-17] MEDS: DOCUSATE SODIUM 100 MG CAPSULE PO SCH (10:06)
[2018-02-17] MEDS: AMIODARONE HCL 200 MG TABLET PO SCH ×2 (10:06→21:16)
[2018-02-17] MEDS: LISINOPRIL 10 MG TABLET PO SCH ×2 (10:06→21:15)
[2018-02-17] MEDS: PREGABALIN 75 MG CAPSULE PO SCH ×2 (10:07→17:55)
[2018-02-17] MEDS: METOPROLOL SUCCINATE 25 MG TAB.SR.24H PO SCH ×2 (10:07→21:15)
[2018-02-17] MEDS: OXYCODONE-ACETAMINOPHEN 5-325 MG TABLET PO PRN (13:50)
[2018-02-17] MEDS: RIVAROXABAN 10 MG TABLET PO SCH (17:54)
[2018-02-18] MEDS: MORPHINE SULFATE 10 MG/ML INJ IV PRN ×5 (03:08→23:44)
[2018-02-18] MEDS: LANSOPRAZOLE 30 MG TAB.RAP.DR PO SCH (06:24)
[2018-02-18] MEDS: DOCUSATE SODIUM 100 MG CAPSULE PO SCH (09:12)
[2018-02-18] MEDS: LISINOPRIL 10 MG TABLET PO SCH ×2 (09:12→21:09)
[2018-02-18] MEDS: AMIODARONE HCL 200 MG TABLET PO SCH ×2 (09:12→21:08)
[2018-02-18] MEDS: METOPROLOL SUCCINATE 25 MG TAB.SR.24H PO SCH ×2 (09:12→21:09)
[2018-02-18] MEDS: PREGABALIN 75 MG CAPSULE PO SCH ×2 (09:12→17:13)
[2018-02-18] MEDS: OXYCODONE HCL SR 10 MG TABLET PO SCH ×2 (09:13→21:19)
[2018-02-18] MEDS ORDERED: POLYETHYLENE GLYCOL 3350 POWDER 17 GM/1 PACKET PO ONE (10:30)
[2018-02-18] MEDS: OXYCODONE-ACETAMINOPHEN 5-325 MG TABLET PO PRN (10:39)
--- NOTE | 2018-02-18 14:54 | PDOC PROGRESS REPORT ---
Subjective Subjective:: Patient lying in bed complete. Patient states pain is currently manageable. Continues transfers w/ PT. continues to have the left and right knee pain. Right greater than left. Also has not had a bowel movement for the past few days. Continues range of motion of his digits. Reason For Visit: RIGHT DISTAL RADIUS FRACTURE, RIGHT HUMERAL SHAFT Physical Exam Vital Signs: Temp Pulse Resp BP Pulse Ox 99.3 F 86 18 111/72 98 02/18/18 12:01 02/18/18 12:01 02/18/18 12:01 02/18/18 12:01 02/18/18 12:01 Intake & Output 02/17/18 02/18/18 02/19/18 06:59 06:59 06:59 Intake Total 3458 2004 118 Output Total 3900 1999 1200 Balance -442 5 -1082 Weight 103.4 kg 103 kg Musculoskeletal exam: PRESENT: other - Right upper extremity: Splint removed today. Dressing clean/dry/intact no erythema or drainage. Elbow range of motion 35-90. Patient lacks extension of the MP joints and EPL. Does appear to have flicker of MP joint function compared to previous examination. Patient able to make full composite fist. Compartments soft and compressible no sign of compartment syndrome. Right lower extremity: Pain with knee range of motion. Tenderness medially and laterally along the joint lines. Mild effusion. Ankle splint intact. Flexion/extension of the toes intact. Cap refill less than 2 seconds. No sensory deficits. Left lower extremity. Moderate effusion of the left knee with painful range of motion in terms of terminal flexion and extension. No calf tenderness. Negative Homans. Results Laboratory Results: 02/09/18 05:10 02/09/18 05:10 02/06/18 02/06/18 12:54 12:54 Creatine Kinase 3969 H CK-MB (CK-2) 0.68 Troponin I < 0.012 Impressions: Cervical Spine CT 02/03/18 00:00 IMPRESSION: MILD DEGENERATIVE CHANGE OF THE CERVICAL SPINE WITHOUT FRACTURE. VASCULAR CALCIFICATIONS. Foot X-Ray 02/03/18 18:34 IMPRESSION: SEVERELY COMMINUTED FRACTURE INVOLVING THE ENTIRETY OF THE CALCANEUS WITH EXTENSION INTO THE SUBTALAR JOINT SPACE. ORTHOPEDIC CONSULTATION RECOMMENDED. NO ADDITIONAL FRACTURE IDENTIFIED INVOLVING THE RIGHT OR RIGHT FOOT. Ankle X-Ray 02/03/18 18:55 IMPRESSION: SEVERELY COMMINUTED FRACTURE INVOLVING THE ENTIRETY OF THE CALCANEUS WITH EXTENSION INTO THE SUBTALAR JOINT SPACE. ORTHOPEDIC CONSULTATION RECOMMENDED. NO ADDITIONAL FRACTURE IDENTIFIED INVOLVING THE RIGHT OR RIGHT FOOT. Lumbar Spine X-Ray 02/03/18 18:55 IMPRESSION: MILDLY DISPLACED FRACTURE ANTERIOR SUPERIOR ENDPLATE L2 VERTEBRAL BODY. ADDITIONAL CHRONIC CHANGES ABOVE. Lumbar Spine CT 02/03/18 22:25 IMPRESSION: 1. Mild L2 anterior vertebral fracture. 2. Mild retroperitoneal lymphadenopathy. Lower Extremity CT 02/03/18 22:26 IMPRESSION: Extensively comminuted right calcaneal fracture. Upper Extremity CT 02/03/18 22:26 IMPRESSION: Comminuted intra-articular fracture of the distal right radius. Limitation. Humerus X-Ray 02/04/18 00:00 IMPRESSION: Comminuted fracture between middle and distal 3rd of right humerus. Wrist X-Ray 02/04/18 00:00 IMPRESSION: Status post internal fixation of comminuted distal right radial and radius styloid fracture. Chest X-Ray 02/06/18 00:00 IMPRESSION: 1 low lung volumes limits the examination. NO ACUTE RADIOGRAPHIC FINDING IN THE CHEST. Fluoroscopy 02/08/18 00:00 IMPRESSION: Intra procedural imaging and fluoro Os Calcis X-ray 02/08/18 00:00 IMPRESSION: Intra procedural imaging and fluoro Knee X-Ray 02/10/18 00:00 IMPRESSION: Soft tissue fullness at the level of the suprapatellar pouch and the possibility of a joint effusion should be considered. Other findings as noted above Lower Extremity MRI 02/14/18 09:00 IMPRESSION: Bone contusion, posterior aspect medial tibial plateau and proximal fibula at the proximal tibiofibular joint. Popliteus tendon high signal from strain or tendinopathy. Assessment & Plan - Diagnosis (1) Griffith's fracture of distal radius, closed Qualifiers: Encounter type: initial encounter Laterality: right Qualified Code(s): S52.561A - Griffith's fracture of right radius, initial encounter for closed fracture Is this a current diagnosis for this admission?: Yes (2) Calcaneal fracture Qualifiers: Encounter type: initial encounter Calcaneus location: body Fracture type : closed Fracture alignment: displaced Laterality: right Qualified Code(s) : S92.011A - Displaced fracture of body of right calcaneus, initial encounter for closed fracture Is this a current diagnosis for this admission?: Yes (3) Right humeral fracture Qualifiers: Encounter type: initial encounter Humerus Location: proximal Fracture type: closed Fracture morphology: other fracture Fracture alignment: displaced Qualified Code(s): S42.291A - Other displaced fracture of upper end of right humerus, initial encounter for closed fracture Is this a current diagnosis for this admission?: Yes Plan: Postop day #5 status post ORIF right humeral shaft/distal radius #1 continue occupational therapy maintain nonweightbearing the right upper extremity. I have stressed the importance of passive range of motion Of the digits and beginning range of motion of his elbow. #2 Xarelto for DVT prophylaxis #3 continue current pain regimen #4 patient has evidence of bilateral knee pain appears left greater than right. MRI demonstrates left ACL tear which may require further intervention in the future, right knee MRI demonstrates bone contusion no evidence of ligamentous etiology. #5 continue TLSO when out of bed for L2 compression fracture #6 touchdown weightbearing right lower extremity as per Dr. Sanchez's protocol #6 discharge planning patient would like to go home but will have to manage maneuvering from the bed to chair independently. Once he has achieved this and his pain is controlled he will be stable for discharge to home versus in rehab rehabilitation patient will follow-up with me in the office in 2 weeks upon discharge.
[2018-02-18] MEDS: RIVAROXABAN 10 MG TABLET PO SCH (17:13)
[2018-02-19] MEDS: ACETAMINOPHEN 325 MG TABLET PO PRN (00:12)
[2018-02-19] MEDS: MORPHINE SULFATE 10 MG/ML INJ IV PRN ×5 (02:32→18:09)
[2018-02-19] MEDS: LANSOPRAZOLE 30 MG TAB.RAP.DR PO SCH (05:03)
[2018-02-19] MEDS: DOCUSATE SODIUM 100 MG CAPSULE PO SCH (09:12)
[2018-02-19] MEDS: PREGABALIN 75 MG CAPSULE PO SCH ×2 (09:12→18:09)
[2018-02-19] MEDS: LISINOPRIL 10 MG TABLET PO SCH ×2 (09:13→21:56)
[2018-02-19] MEDS: OXYCODONE HCL SR 10 MG TABLET PO SCH ×2 (09:13→21:56)
[2018-02-19] MEDS: METOPROLOL SUCCINATE 25 MG TAB.SR.24H PO SCH ×2 (09:13→21:56)
[2018-02-19] MEDS: AMIODARONE HCL 200 MG TABLET PO SCH ×2 (09:13→21:56)
[2018-02-19] MEDS: OXYCODONE-ACETAMINOPHEN 5-325 MG TABLET PO PRN (09:14)
[2018-02-19] MEDS: POLYETHYLENE GLYCOL 3350 POWDER 17 GM/1 PACKET PO SCH (09:14)
--- NOTE | 2018-02-19 13:20 | PDOC TRANSFER SUMMARY ---
General Admission Date/PCP: 02/03/18 22:35 KIMBERLY ESCUDERO MD Resuscitation Status: Full Code - Transfer Diagnosis (1) Griffith's fracture of distal radius, closed Is this a current diagnosis for this admission?: Yes (2) Calcaneal fracture Is this a current diagnosis for this admission?: Yes - Transfer Medications Home Medications: Amlodipine Besylate [Norvasc 5 mg Tablet] 5 mg PO Q12 02/04/18 Lisinopril [Prinivil] 20 mg PO Q12 02/04/18 Simvastatin [Zocor 20 mg Tablet] 20 mg PO QHS 02/04/18 Transfer Medications: Current Medications Acetaminophen (Tylenol 325 Mg Tablet) 650 mg PO Q4HP PRN PRN Reason: FEVER Stop: 03/07/18 07:58 Last Admin: 02/19/18 00:12 Dose: 650 mg Amiodarone HCl (Cordarone 200 Mg Tablet) 200 mg PO Q12 AIDEN Stop: 03/09/18 21:59 Last Admin: 02/19/18 09:13 Dose: 200 mg Dextrose (Dextrose Inj 50% Syringe (25 Gm/50 Ml)) 12.5 gm IV PRN PRN; Protocol PRN Reason: FOR BG 50-69 IN ALERT PATIENT Stop: 03/07/18 16:41 Dextrose (Dextrose Inj 50% Syringe (25 Gm/50 Ml)) 25 gm IV PRN PRN; Protocol PRN Reason: See Label Comments Stop: 03/07/18 16:41 Diphenhydramine HCl (Benadryl Inj 50 Mg/1 Ml Vial) 25 mg IV Q6HP PRN PRN Reason: FOR ITCHING Stop: 03/06/18 14:34 Last Admin: 02/09/18 03:00 Dose: 25 mg Docusate Sodium (Colace 100 Mg Capsule) 100 mg PO DAILY AIDEN Stop: 03/06/18 09:59 Last Admin: 02/19/18 09:12 Dose: 100 mg Glucagon (Glucagen Inj 1 Mg Vial) 1 mg SUBCUT PRN PRN; Protocol PRN Reason: Evaluate for BG < 70 Stop: 03/07/18 16:41 Glucose (Glutose 40% Gel 15 Gm Tube) 15 gm PO PRN PRN; Protocol PRN Reason: For BG 50-69 in Alert Patient Stop: 03/07/18 16:41 Glucose (Glutose 40% Gel 15 Gm Tube) 30 gm PO PRN PRN; Protocol PRN Reason: FOR BG < 50 IN ALERT PATIENT Stop: 03/07/18 16:41 Lansoprazole (Prevacid 30 Mg Odt Tablet) 30 mg PO Q6AM [facility] Stop: 03/07/18 05:59 Last Admin: 02/19/18 05:03 Dose: 30 mg Lisinopril (Prinivil 10 Mg Tablet) 20 mg PO Q12@0900,2100 [facility] Stop: 03/06/18 08:59 Last Admin: 02/19/18 09:13 Dose: 20 mg Metoprolol Succinate (Toprol Xl 25 Mg Tab.Sr) 25 mg PO Q12 [facility] Stop: 03/08/18 21:59 Last Admin: 02/19/18 09:13 Dose: 25 mg Morphine Sulfate (Morphine 10 Mg/Ml Inj) 2 mg IV Q2HP PRN PRN Reason: FOR PAIN SCALE 1-3 Stop: 02/25/18 10:05 Last Admin: 02/19/18 07:20 Dose: 2 mg Ondansetron HCl (Zofran Inj/Pf 4 Mg/2 Ml Sdv) 4 mg IV Q8HP PRN PRN Reason: FOR NAUSEA/VOMITING Stop: 03/05/18 22:25 Ondansetron HCl (Zofran Odt 4 Mg Tablet) 4 mg PO Q6HP PRN PRN Reason: Nausea Stop: 03/06/18 14:34 Oxycodone HCl (Oxycontin Sr 10 Mg Tablet) 20 mg PO Q12 [facility] Stop: 02/24/18 09:59 Last Admin: 02/19/18 09:13 Dose: 20 mg Oxycodone/Acetaminophen (Percocet 5-325 Mg Tablet) 2 tab PO Q6HP PRN PRN Reason: MILD PAIN Stop: 02/25/18 10:05 Last Admin: 02/19/18 09:14 Dose: 2 tab Polyethylene Glycol (Miralax Powder 17 Gm/Packet) 17 gm PO DAILY [facility] Stop: 03/21/18 09:59 Last Admin: 02/19/18 09:14 Dose: 17 gm Pregabalin (Lyrica 75 Mg Capsule) 75 mg PO BID [facility] Stop: 03/06/18 17:59 Last Admin: 02/19/18 09:12 Dose: 75 mg Rivaroxaban (Xarelto 10 Mg Tablet) 10 mg PO WSUPPER [facility] Stop: 03/06/18 16:59 Last Admin: 02/18/18 17:13 Dose: 10 mg Sodium Chloride (Saline Flush 2.5 Ml Monoject Prefil Syrin) 2.5 ml IV Q8 [facility] Stop: 03/11/18 13:59 Last Admin: 02/19/18 05:03 Dose: 2.5 ml - Allergies Allergies/Adverse Reactions: No Known Allergies Allergy (Unverified 02/03/18 18:38) - Diet/Activity Discharge Diet: As Tolerated Hospital Course Hospital Course: 57-year-old white male who presented to the emergency department on February 04, 2018 after having fallen 9 feet from a ladder. He sustained a right distal radius Griffith's fracture, right proximal humeral shaft fracture, right calcaneal fracture. He was admitted to the OR where he underwent ORIF of right distal radius and right proximal humeral shaft. Days later he also underwent open reduction internal fixation for right calcaneal fractures. After both surgeries he was taken to PACU in satisfactory condition and transferred to the surgical floor. He was seen by nursing staff and orthopedic surgeons for pain control. He worked with physical therapy to improve strength range of motion of right lower and upper extremities. He is now able to complete sidesteps and transfers from chair at the bedside to bed to bedside commode. Subsequent pain in patient's knees developed an MRI imaging was ordered. MRI imaging confirms tear of the ACL in the left knee, right knee contusion. Pending placement in [facility] patient will be discharged to this facility. He will continue to work with nursing staff to obtain pain control and will continue to work with physical therapy to improve strength range of motion and distance of ambulation of right lower extremity. He will work with occupational therapy to improve range of motion and completion of ADLs with right upper extremity. Physical Exam Vital Signs: Temp Pulse Resp BP Pulse Ox 36.6 C 83 18 112/65 99 02/19/18 08:17 02/19/18 08:17 02/19/18 08:17 02/19/18 08:17 02/19/18 08:17 Intake & Output 02/18/18 02/19/18 02/20/18 06:59 06:59 06:59 Intake Total 2004 1165 Output Total 1999 3000 Balance 5 -1835 Weight 103 kg General appearance: PRESENT: no acute distress, well-developed, well-nourished Head exam: PRESENT: atraumatic, normocephalic Mouth exam: PRESENT: moist Respiratory exam: PRESENT: unlabored Pulses: PRESENT: normal dorsalis pedis pul Vascular exam: PRESENT: normal capillary refill Musculoskeletal exam: PRESENT: other - Right upper extremity: Splint placed is clean dry and intact. This is left in place. Elbow range of motion 35-90. Patient cannot perform extension of the MP joints, nor EPL. Evidence of possible radial nerve neuropraxia. Patient makes full composite fist. Resolving postoperative edema, no sign of compartment syndrome. Right lower extremity: Pain on initiation of knee range of motion. Tenderness medially and laterally along the joint lines. Mild effusion. Ankle splint is clean dry and intact. This is left in place. He performs flexion/extension of the toes. Cap refill less than 2 seconds. No sensory deficits. No calf tenderness or concern for DVT at this time. Left lower extremity. Moderate effusion of the left knee with pain at terminal flexion extension. No calf tenderness. Negative Homans. No concern for DVT presently. Neurological exam: PRESENT: alert, awake, oriented to person, oriented to place , oriented to time, oriented to situation, CN II-XII grossly intact. ABSENT: motor sensory deficit Psychiatric exam: PRESENT: appropriate affect, normal mood. ABSENT: homicidal ideation, suicidal ideation Skin exam: PRESENT: dry, intact, warm. ABSENT: cyanosis, rash Results Laboratory Results: 02/09/18 05:10 02/09/18 05:10 02/06/18 02/06/18 12:54 12:54 Creatine Kinase 3969 H CK-MB (CK-2) 0.68 Troponin I < 0.012 Impressions: Cervical Spine CT 02/03/18 00:00 IMPRESSION: MILD DEGENERATIVE CHANGE OF THE CERVICAL SPINE WITHOUT FRACTURE. VASCULAR CALCIFICATIONS. Foot X-Ray 02/03/18 18:34 IMPRESSION: SEVERELY COMMINUTED FRACTURE INVOLVING THE ENTIRETY OF THE CALCANEUS WITH EXTENSION INTO THE SUBTALAR JOINT SPACE. ORTHOPEDIC CONSULTATION RECOMMENDED. NO ADDITIONAL FRACTURE IDENTIFIED INVOLVING THE RIGHT OR RIGHT FOOT. Ankle X-Ray 02/03/18 18:55 IMPRESSION: SEVERELY COMMINUTED FRACTURE INVOLVING THE ENTIRETY OF THE CALCANEUS WITH EXTENSION INTO THE SUBTALAR JOINT SPACE. ORTHOPEDIC CONSULTATION RECOMMENDED. NO ADDITIONAL FRACTURE IDENTIFIED INVOLVING THE RIGHT OR RIGHT FOOT. Lumbar Spine X-Ray 02/03/18 18:55 IMPRESSION: MILDLY DISPLACED FRACTURE ANTERIOR SUPERIOR ENDPLATE L2 VERTEBRAL BODY. ADDITIONAL CHRONIC CHANGES ABOVE. Lumbar Spine CT 02/03/18 22:25 IMPRESSION: 1. Mild L2 anterior vertebral fracture. 2. Mild retroperitoneal lymphadenopathy. Lower Extremity CT 02/03/18 22:26 IMPRESSION: Extensively comminuted right calcaneal fracture. Upper Extremity CT 02/03/18 22:26 IMPRESSION: Comminuted intra-articular fracture of the distal right radius. Limitation. Humerus X-Ray 02/04/18 00:00 IMPRESSION: Comminuted fracture between middle and distal 3rd of right humerus. Wrist X-Ray 02/04/18 00:00 IMPRESSION: Status post internal fixation of comminuted distal right radial and radius styloid fracture. Chest X-Ray 02/06/18 00:00 IMPRESSION: 1 low lung volumes limits the examination. NO ACUTE RADIOGRAPHIC FINDING IN THE CHEST. Fluoroscopy 02/08/18 00:00 IMPRESSION: Intra procedural imaging and fluoro Os Calcis X-ray 02/08/18 00:00 IMPRESSION: Intra procedural imaging and fluoro Knee X-Ray 02/10/18 00:00 IMPRESSION: Soft tissue fullness at the level of the suprapatellar pouch and the possibility of a joint effusion should be considered. Other findings as noted above Lower Extremity MRI 02/14/18 09:00 IMPRESSION: Bone contusion, posterior aspect medial tibial plateau and proximal fibula at the proximal tibiofibular joint. Popliteus tendon high signal from strain or tendinopathy. Plan Discharge Plan: 57-year-old white male status post open reduction internal fixation of Griffith's fracture of right distal radius, right proximal humeral shaft fracture, right calcaneal fracture. Patient has also been diagnosed with left ACL tear as well as right knee contusion. Patient doing well postoperatively in terms of pain control and make slow progress with physical therapy. He can now complete sidesteps and still needs assistance with transfers from chair at the bedside to bed and bedside commode. With this progress in place, patient notes that he would like to be discharged to [facility] facility. He will be discharged to [facility] once a bed becomes available. If a bed does not become available, but patient has made further progress and cannot perform transfers independently he may be discharged to his home. Although patient will be discharged from the hospital, patient most adhered to the following regardless of discharge disposition: #1 continue occupational therapy maintain nonweightbearing the right upper extremity. Importance of passive range of motion Of the digits and beginning range of motion of his elbow have been stressed to the patient #2 He will continue Xarelto for DVT prophylaxis for the next 2 weeks #3 He will be discharged with oral analgesic medication #4 MRI demonstrates left ACL tear which may require further intervention in the future, right knee MRI demonstrates bone contusion no evidence of ligamentous etiology. These issues can be addressed at future follow-up appointments with [facility] for surgery #5 continue TLSO when out of bed for L2 compression fracture #6 touchdown weightbearing right lower extremity as per Dr. Sanchez's protocol #7 follow-up with Dr. Heard and Lukas VILLANUEVA in the office in 2 weeks upon discharge. Time Spent: Less than 30 Minutes
[2018-02-19] MEDS ORDERED: MAGNESIUM CITRATE 296 ML BOTTLE PO ONE ×2 (15:00→19:00)
[2018-02-19] MEDS: RIVAROXABAN 10 MG TABLET PO SCH (18:09)
[2018-02-20] MEDS: LANSOPRAZOLE 30 MG TAB.RAP.DR PO SCH (07:01)
[2018-02-20] MEDS: PREGABALIN 75 MG CAPSULE PO SCH (10:39)
[2018-02-20] MEDS: OXYCODONE HCL SR 10 MG TABLET PO SCH (10:40)
[2018-02-20] MEDS: AMIODARONE HCL 200 MG TABLET PO SCH (10:40)
[2018-02-20] MEDS: LISINOPRIL 10 MG TABLET PO SCH (10:42)
[2018-02-20] MEDS: METOPROLOL SUCCINATE 25 MG TAB.SR.24H PO SCH (10:42)
[2018-02-20] MEDS: POLYETHYLENE GLYCOL 3350 POWDER 17 GM/1 PACKET PO SCH (10:45)
[2018-02-20] MEDS: DOCUSATE SODIUM 100 MG CAPSULE PO SCH (10:45)
[2018-02-20] MEDS ORDERED: OXYCODONE-ACETAMINOPHEN 5-325 MG TABLET PO PRN (15:12)
[2018-02-20 16:03] VITALS: BP 103/55
[2018-02-20] MEDS: RIVAROXABAN 10 MG TABLET PO SCH (16:05)
[2018-02-20] MEDS ORDERED: LISINOPRIL 10 MG TABLET PO SCH (22:00)
[2018-02-20] MEDS ORDERED: AMLODIPINE BESYLATE 5 MG TABLET PO SCH (22:00)
[2018-02-20] MEDS ORDERED: SIMVASTATIN 10 MG TABLET PO SCH (22:00)
[2018-02-20] MEDS ORDERED: (PENDING PHARMACY ID) (Lisinopril [Prinivil] 20 MG) PO SCH (22:00)
== END 2018-02-20 18:20 | DRG 493 ==
LOC: ER 18:10 → EH 22:35 → 4N 02-04 01:37 → 3S 02-06 14:54 → 5 02-19 18:35
PROVIDERS: ADMIT Orthopaedic Surgery; ATTEND Orthopaedic Surgery
PROC: 0PSH04Z Reposition Right Radius with Internal Fixation Device, Open Approach (ICD-10-PCS; 2018-02-04)
PROC: 01N60ZZ Release Radial Nerve, Open Approach (ICD-10-PCS; 2018-02-04)
PROC: 0PSF04Z Reposition Right Humeral Shaft with Internal Fixation Device, Open Approach (ICD-10-PCS; principal; 2018-02-04 10:00)
PROC: 5A2204Z Restoration of Cardiac Rhythm, Single (ICD-10-PCS; 2018-02-06)
PROC: 0QSL04Z Reposition Right Tarsal with Internal Fixation Device, Open Approach (ICD-10-PCS; 2018-02-08)
DX: S42.301A Unspecified fracture of shaft of humerus, right arm, initial encounter for closed fracture (principal); S32.028A Other fracture of second lumbar vertebra, initial encounter for closed fracture; S52.561A Barton's fracture of right radius, initial encounter for closed fracture; S82.145A Nondisplaced bicondylar fracture of left tibia, initial encounter for closed fracture; I47.1 Supraventricular tachycardia; S92.011A Displaced fracture of body of right calcaneus, initial encounter for closed fracture; M25.462 Effusion, left knee; S83.242A Other tear of medial meniscus, current injury, left knee, initial encounter; S83.512A Sprain of anterior cruciate ligament of left knee, initial encounter; S64.21XA Injury of radial nerve at wrist and hand level of right arm, initial encounter; W11.XXXA Fall on and from ladder, initial encounter; Y92.89 Other specified places as the place of occurrence of the external cause; Y99.0 Civilian activity done for income or pay; I10 Essential (primary) hypertension; K59.00 Constipation, unspecified; I48.91 Unspecified atrial fibrillation; R50.9 Fever, unspecified; G47.30 Sleep apnea, unspecified; E66.9 Obesity, unspecified; Z68.34 Body mass index [BMI] 34.0-34.9, adult; Z87.891 Personal history of nicotine dependence; G89.11 Acute pain due to trauma; E78.5 Hyperlipidemia, unspecified; Z79.02 Long term (current) use of antithrombotics/antiplatelets
CPT/HCPCS: 01480; 01740; 36415; 71045; 72110; 72125; 72131; 80048; 80053; 80061; 81001; 82550; 82553; 84443; 84484; 85025; 85027; 85610; 85730; 87040; 93005; 93010; 93306; 99291; C1713; J0131; J0153; J0282; J0330; J0690; J1200; J1741; J1885; J2250; J2270; J2370; J2405; J2704; J3010; J3490; J7060; J7120; L4386